=== PATIENT | female | born 1960 | race Caucasian/White ===

== ENCOUNTER 2020-04-27 07:34 | Outpatient (CLI) | payer BC, SELFPAY ==
--- NOTE | ~2020-04-27 | MR_ITS ---
EXAMINATION: MR cervical spine wo con DATE: 04/27/2020 08:40 INDICATION: Cervical radiculopathy. TECHNIQUE: Magnetic resonance imaging (MRI) of the cervical spine was performed without intravenous c ontrast. Sequences included sagittal T2-weighted FSE, sagittal STIR FSE, sagittal T1-weighted FSE, ax ial MERGE, and axial T2-weighted FSE. COMPARISON: None FINDINGS: There is 2 mm anterolisthesis of C3 on C4, 2 mm retrolisthesis of C4 on C5, and 3 mm ingrid listhesis of C7 on T1. Vertebral body heights are normal. There is mildly decreased disc height at C3 -C4, moderately decreased disc height at C4-C5 and C5-C6, and mildly decreased disc height at C7-T1. The spinal cord signal intensity is normal. The following disc levels are specifically discussed: C2-C3: The disc does not extend beyond the endplate margin. There is no uncovertebral joint osteoarth ritis. There is mild right and moderate left facet joint osteoarthritis. There is no neural foraminal stenosis. There is no central canal stenosis. C3-C4: The disc is bulging. There is mild bilateral uncovertebral joint osteoarthritis. There is reid re bilateral facet joint osteoarthritis. There is mild bilateral neural foraminal stenosis. There is mild central canal stenosis. C4-C5: The disc is bulging. There is severe bilateral uncovertebral joint osteoarthritis. There is mi ld bilateral facet joint osteoarthritis. There is moderate bilateral neural foraminal stenosis. There is mild central canal stenosis. C5-C6: The disc is bulging. There is severe bilateral uncovertebral joint osteoarthritis. There is mi ld bilateral facet joint osteoarthritis. There is mild right and moderate left neural foraminal steno sis. There is mild central canal stenosis. C6-C7: The disc does not extend beyond the endplate margin. There is no uncovertebral joint osteoarth ritis. There is mild right and moderate left facet joint osteoarthritis. There is mild left neural fo raminal stenosis. There is no central canal stenosis. C7-T1: The disc does not extend beyond the endplate margin. There is no uncovertebral joint osteoarth ritis. There is severe bilateral facet joint osteoarthritis. There is mild bilateral neural foraminal stenosis. There is no central canal stenosis. IMPRESSION: 1. Moderate cervical spondylosis. Reviewed, dictated and finalized at location A.
== END 2020-04-27 07:35 | disposition home or self-care (01) ==
PROVIDERS: PCP Physician Assistant; Visit Provider Physician Assistant
DX: M47.22 Other spondylosis with radiculopathy, cervical region (principal)
CPT/HCPCS: 72141

== ENCOUNTER 2020-09-30 16:29 | Outpatient (CLI) | payer BC, SELFPAY ==
--- NOTE | ~2020-09-30 | XR_ITS ---
XR ankle LT min 3V DATE: 09/30/2020 16:50 INDICATION: Left ankle lateral pain. No injury. TECHNIQUE: 4 views COMPARISON: None FINDINGS: No fracture or dislocation of the ankle or disruption of the ankle mortise. IMPRESSION: No significant bony abnormality Reviewed, dictated and finalized at location B. GER SCHEDULING
--- NOTE | ~2020-09-30 | US_ITS ---
EXAMINATION: US venous doppler [facility] EXAM DATE: 09/30/2020 17:06 INDICATION: Left foot edema. TECHNIQUE: Multiple grayscale, color flow and Doppler images of the left lower extremity deep venous system were obtained and reviewed. Comparison is made to prior examination from 06/29/2016. FINDINGS: The left common femoral, femoral and profunda veins demonstrate normal color flow, respirat ory variation, augmentation and compressibility. Compressibility, color flow confirmed within the le ft popliteal, posterior tibial, peroneal, and greater saphenous veins. IMPRESSION: 1. No left lower extremity deep venous thrombosis. Reviewed, dictated and finalized at location A. 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
== END 2020-09-30 16:30 | disposition home or self-care (01) ==
PROVIDERS: PCP Physician Assistant; Visit Provider Physician Assistant
DX: M25.572 Pain in left ankle and joints of left foot (principal); R60.0 Localized edema
CPT/HCPCS: 73610; 93971

== ENCOUNTER → 2020-10-21 14:23 | Outpatient (CLI) | payer BC, SELFPAY ==
--- NOTE | ~2020-10-21 | MR_ITS ---
EXAMINATION: MR ankle LT wo con DATE: 10/21/2020 15:26 INDICATION: 2 months of left ankle pain and lateral sided burning sensation. TECHNIQUE: Magnetic resonance imaging (MRI) of the left ankle was performed without intravenous contr ast. Sequences included sagittal, coronal, and axial proton-density weighted fast spin echo without a nd with fat saturation. COMPARISON: Left ankle radiographs dated 09/30/2020 FINDINGS: Medial ankle ligaments: Deep and superficial deltoid ligaments as well as the spring ligament are normal. Lateral ankle ligaments: The anterior and posterior inferior tibiofibular ligaments are normal. The anterior talofibular, calc aneofibular and posterior talofibular ligaments are normal. Tendons: Achilles tendon is normal. Moderate amount of fluid/fluid signal surrounding the peroneus longus and brevis tendons beginning approximately 4 similar proximal to the tip of the lateral malleolus and ext ending distally to the level of the cuboid consistent with moderate bicipital tenosynovitis. Mild ten dinopathy of the peroneus brevis tendon with longitudinal split tear evident immediately distal to th e tip of the lateral malleolus. More prominent tendinopathy with fusiform thickening and longitudinal split tearing of the peroneus longus tendon centered between the level of the medial tubercle and th e cuboid tunnel. The tibialis anterior and extensor hallucis longus and extensor digitorum longus ten dons are normal. Small fluid consistent with mild tenosynovitis along the normal tibialis posterior a nd flexor digitorum longus tendons. The lateral sulcus longus tendon is also normal. Plantar fascia: Plantar aponeurosis is normal. Bones/other: Bone alignment is normal. No fracture, osteonecrosis or pathologic marrow replacing process. Mild ost eoarthritis at the second-fifth tarsal metatarsal joints with subarticular edema at both sides of the second tarsal metatarsal joint. Mild tibiotalar osteoarthritis with additional small focus of subart icular edema along the medial side of the lateral malleolus. There is additional minimal likely react anna edema at the peroneal tubercle of the calcaneus. Sinus Tarsi and tarsal tunnel are unremarkable. There is focus of susceptibility artifact centered near the skin surface plantar/lateral to the base of the fifth metatarsal. On review the prior radiograph there is a minute metallic thin wire-like met allic density measuring 1 mm in length which likely accounts for the artifact and which is likely of no clinical significance. Fluid: Physiologic amount of fluid in the joint spaces. No abnormal fluid collections aside from the previou s noted tenosynovitis along the lateral and to lesser degree medial flexor tendons. Minimal subcutane ous edema at the ankle and along the dorsal lateral aspect of the foot. IMPRESSION: 1. Moderate peroneal tenosynovitis with moderate tendinopathy and longitudinal split tearing of the p eroneus longus tendon and mild tendinopathy and longitudinal split tear plane of the peroneus brevis tendon both centered at the level of the anterior calcaneus immediately underlying the marker indicat ing the region of pain. 2. Mild tenosynovitis along the normal tibialis posterior and flexor digitorum longus tendons. 3. Mild polyarticular osteoarthritis. Reviewed, dictated and finalized at location A. 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 Moderate peroneal tenosynovitis with moderate tendinopathy and longitudinal split tearing of the peroneus longus tendon and mild tendinopathy and longitudi nal split tear plane of the peroneus brevis tendon both centered at the level o f the anterior calcaneus immediately underlying the marker indicating the regio n of pain. 2. Mild tenosynovitis along the no
== END ==
PROVIDERS: PCP Physician Assistant; Visit Provider Physician Assistant
DX: M19.072 Primary osteoarthritis, left ankle and foot (principal); M65.872 Other synovitis and tenosynovitis, left ankle and foot
CPT/HCPCS: 73721

== ENCOUNTER 2020-11-09 14:36 | Outpatient (NON) | payer BC, SELFPAY ==
[2020-11-10 21:48] LABS: SARS-CoV-2 RNA PCR Negative
== END 2020-11-09 14:37 ==
LOC: ANHCOVIDDT 14:37
PROVIDERS: PCP Physician Assistant; Visit Provider Physician Assistant
DX: R50.9 Fever, unspecified (principal); Z20.828 Contact with and (suspected) exposure to other viral communicable diseases
CPT/HCPCS: 87635; C9803; U0003

== ENCOUNTER → 2020-12-19 17:15 | Outpatient (CLI) | payer BC, SELFPAY ==
--- NOTE | ~2020-12-19 | MM_ITS ---
EXAMINATION: MM screening natty BI w saumya HISTORY: Screening mammogram TECHNIQUE: Craniocaudal and mediolateral oblique 3-D tomosynthesis images were obtained and synthetic 2-D images were generated. CAD analysis was submitted and interpreted. COMPARISON: 06/15/2019, 01/31/2018, 03/06/2016 bilateral digital screening mammogram examinations BREAST PARENCHYMAL COMPOSITION: There are scattered areas of fibroglandular density. FINDINGS: There is no evidence of suspicious mass, calcification, or architectural distortion to sugg est malignancy in either breast. There has been no suspicious interval change. IMPRESSION: 1. No mammographic evidence of malignancy. 2. Recommend routine screening mammography in one year. BI-RADS Category 1: Negative Reviewed, dictated and finalized at location A. 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
== END ==
PROVIDERS: PCP Physician Assistant; Visit Provider Physician Assistant
DX: Z12.31 Encounter for screening mammogram for malignant neoplasm of breast (principal)
CPT/HCPCS: 77063; 77067

== ENCOUNTER 2022-02-15 01:44 | Day surgery (SDC) | payer BC, SELFPAY ==
[2022-02-05 13:17] VITALS: BMI 32.3
--- NOTE | 2022-02-14 14:57 | WPDGICN ---
Assessment and Plan Assessment and plan (1) Colon cancer screening: Code(s): Z12.11 - Encounter for screening for malignant neoplasm of colon Status: Acute Assessment and Plan: Colonoscopy with possible biopsy or polypectomy or cautery or injection of substances. GI Consult Note Consult date/time: 02/14/22 14:57 HPI: Janki Love is a 61 year old female referred for colon cancer screening. Her last exam was 10 years ago. She is not having any particular problems now such as diarrhea, abdominal pain, or blood in stools. She has no family history of colon cancer Review of Systems Review of Systems: All systems reviewed & are unremarkable except as noted in HPI and below PMFSH Social History Social History Smoking status: Never smoker Alcohol intake: current Alcohol use details: 2-3 drinks monthly Living arrangements: with family Spiritual care concerns: No Meds Home Medications and Allergies Home Medications Medication Instructions Recorded Confirmed Type aspirin [Adult Low Dose Aspirin] 81 mg PO DAILY 02/05/22 02/05/22 History atenolol 25 mg PO DAILY 02/05/22 02/05/22 History azathioprine 50 mg PO BID 02/05/22 02/05/22 History cholecalciferol (vitamin D3) 50 mcg PO DAILY 02/05/22 02/05/22 History [Vitamin D3] duloxetine 60 mg PO DAILY 02/05/22 02/05/22 History hydroxychloroquine 200 mg PO BID 02/05/22 02/05/22 History vitamin B complex 1 tablet PO DAILY 02/05/22 02/05/22 History zolpidem 12.5 mg PO HS 02/05/22 02/05/22 History Allergies Allergy/AdvReac Type Severity Reaction Status Date / Time No Known Allergies Allergy Verified 02/15/22 06:49 Exam Resp: Auscultation: clear to auscultation bilaterally Cardio: Rate: regular rate Rhythm: regular rhythm GI: GI Palp: Yes Soft to palpation and No Tenderness to palpation present (GI)
[2022-02-15 06:51] VITALS: BP 137/70; PULSE 62; RESP 18; TEMP 36.8; O2SAT 98
[2022-02-15] MEDS: LACTATED RINGERS 1,000 ML 150 ML IV CONT (07:06)
[2022-02-15] MEDS: AMPICILLIN 2 GM/NS 100 ML 2 GM/100 ML BAG IVPB (07:07)
--- NOTE | 2022-02-15 07:45 | WPDANESEPPF ---
Anes - Initial Pre Proc Eval Procedure: Operation Date: 02/15/22 08:00 Proposed Procedures p Screening Colonoscopy - Fabien Colunga MD Date/Time: 02/15/22 07:45 Surgeon: Fabien Colunga MD Pre Op Diagnosis: neoplasm screening Patient Data Age: 61 Gender: F Height: 1.68 m Weight: 93.5 kg Last Vital Signs Temp 98.2 F 02/15/22 06:51 Pulse 62 02/15/22 06:51 Resp 18 02/15/22 06:51 BP 137/70 02/15/22 06:51 Pulse Ox 98 02/15/22 06:51 Allergies Allergy/AdvReac Type Severity Reaction Status Date / Time No Known Allergies Allergy Verified 02/15/22 06:49 Home Medications Medication Instructions Recorded Confirmed Type aspirin [Adult Low Dose Aspirin] 81 mg PO DAILY 02/05/22 02/05/22 History atenolol 25 mg PO DAILY 02/05/22 02/05/22 History azathioprine 50 mg PO BID 02/05/22 02/05/22 History cholecalciferol (vitamin D3) 50 mcg PO DAILY 02/05/22 02/05/22 History [Vitamin D3] duloxetine 60 mg PO DAILY 02/05/22 02/05/22 History hydroxychloroquine 200 mg PO BID 02/05/22 02/05/22 History vitamin B complex 1 tablet PO DAILY 02/05/22 02/05/22 History zolpidem 12.5 mg PO HS 02/05/22 02/05/22 History Patient hx anesthesia problems: none Family hx anesthesia problems: none Results Review: All pre-operative results and documents have been reviewed as part of the pre-operative evaluation. [facility] Past Medical History Medical History (Updated 02/15/22 @ 07:46 by Mario Arboleda MD) Asthma Hypertension Irregular heart beat Systemic lupus erythematosus Social History Social History Smoking status: Never smoker Alcohol intake: current Alcohol use details: 2-3 drinks monthly Living arrangements: with family Spiritual care concerns: No Anes - Eval Final PreProcedure Day of Procedure 02/15/22 07:45 Patient weight: obese Heart: regular rate and rhythm Lungs: clear to auscultation Airway: Mallampati scale class II Neurological: alert and oriented Last oral intake: >/= 8 hours ASA classification: III Emergent: no Anesthetic plan: proceed Anesthesia type and monitoring: general GIVS and standard monitoring Results Review: All pre-operative results and documents have been reviewed as part of the pre-operative evaluation. Informed Consent: The patient's anesthetic plan and its attendant risks and benefits were discussed with the patient/family/POA. Questions were solicited and answers provided to the satisfaction of the patient/family/POA.
[2022-02-15 08:15] VITALS: BP 107/68; PULSE 97; RESP 20; O2SAT 97
[2022-02-15 08:25] VITALS: BP 123/80; PULSE 100; RESP 19; O2SAT 99
[2022-02-15 08:35] VITALS: BP 142/77; PULSE 100; RESP 20; O2SAT 99
== END 2022-02-15 08:41 | disposition home or self-care (01) ==
PROVIDERS: PCP Physician Assistant; Visit Provider Internal Medicine Gastroenterology
PROC: 0DJD8ZZ Inspection of Lower Intestinal Tract, Via Natural or Artificial Opening Endoscopic (ICD-10-PCS; CPT 45378; principal; 2022-02-15 08:00)
DX: Z12.11 Encounter for screening for malignant neoplasm of colon (principal); I10 Essential (primary) hypertension; M32.9 Systemic lupus erythematosus, unspecified; Z79.82 Long term (current) use of aspirin; E66.9 Obesity, unspecified; Z68.33 Body mass index [BMI] 33.0-33.9, adult
CPT/HCPCS: 45378; J0290; J2704; J7120

== ENCOUNTER → 2022-03-05 10:46 | Outpatient (CLI) | payer BC, SELFPAY ==
--- NOTE | ~2022-03-05 | MM_ITS ---
EXAMINATION: MM screening natty BI w saumya HISTORY: Screening TECHNIQUE: Craniocaudal and mediolateral oblique 3-D tomosynthesis images were obtained and synthetic 2-D images were generated. CAD analysis was submitted and interpreted. COMPARISON: Comparison to multiple prior studies sequentially, with oldest reviewed study dated 01/31. BREAST PARENCHYMAL COMPOSITION: There are scattered areas of fibroglandular density. FINDINGS: There is no evidence of suspicious mass, calcification, or architectural distortion to sugg est malignancy in either breast. There has been no suspicious interval change. IMPRESSION: 1. No mammographic evidence of malignancy. 2. Recommend routine screening mammography in one year. BI-RADS Category 1: Negative Reviewed, dictated and finalized at location A.
== END ==
PROVIDERS: PCP Physician Assistant; Visit Provider Physician Assistant
DX: Z12.31 Encounter for screening mammogram for malignant neoplasm of breast (principal)
CPT/HCPCS: 77063; 77067

== ENCOUNTER 2022-07-21 08:48 | Emergency (ER) | payer BC, SELFPAY ==
--- NOTE | ~2022-07-21 | XR_ITS ---
XR ankle LT min 3V DATE: 07/21/2022 09:26 INDICATION: Fall down stairs. Lateral ankle pain TECHNIQUE: 4 views COMPARISON: None FINDINGS: No fracture or dislocation of the ankle or disruption of the ankle mortise. No periosteal r eaction or bone destruction. IMPRESSION: Negative Reviewed, dictated and finalized at location A. IMPRESSION: Negative
--- NOTE | ~2022-07-21 | XR_ITS ---
XR tibia fibula LT 2V DATE: 07/21/2022 09:26 INDICATION: Fall down steps. Lateral lower leg pain TECHNIQUE: AP and lateral views COMPARISON: 07/21/2022 left ankle FINDINGS: Status post left total knee arthroplasty with patellar resurfacing. Normal alignment at the knee and ankle joints. No tibial or fibular fracture, periosteal reaction or bone destruction. IMPRESSION: No fracture or dislocation of left lower leg Status post left total knee arthroplasty Reviewed, dictated and finalized at location A.
[2022-07-21 08:56] VITALS: BP 101/84; PULSE 69; RESP 16; TEMP 36.9; O2SAT 96
--- NOTE | 2022-07-21 09:19 | ED.LOWEXIN ---
HPI - Extremity Injury (Lower) General Chief Complaint: Extremity Injury, Lower Stated Complaint: possible broken left ankle Time Seen by Provider: 07/21/22 09:11 Source: patient Mode of arrival: wheelchair Limitations: no limitations History of Present Illness HPI Narrative: This is a 61-year-old female that presents to the emergency department for left ankle pain after an injury last night. Reports she slipped on a rug and twisted her ankle. Reports pain and swelling to the medial aspect of the ankle. She is unable to bear weight. Reports decreased range of motion due to pain. No others injuries or trauma. Denies numbness. Related Data Home Medications Medication Instructions Recorded Confirmed atenolol 25 mg tablet 25 mg PO DAILY 02/05/22 07/21/22 azathioprine 50 mg tablet 50 mg PO BID 02/05/22 07/21/22 cholecalciferol (vitamin D3) 50 50 mcg PO DAILY 02/05/22 07/21/22 mcg (2,000 unit) tablet (Vitamin D3) duloxetine 60 mg capsule,delayed 60 mg PO DAILY 02/05/22 07/21/22 release hydroxychloroquine 200 mg tablet 200 mg PO BID 02/05/22 07/21/22 vitamin B complex 1 tablet PO DAILY 02/05/22 07/21/22 zolpidem 12.5 mg tablet,extended 12.5 mg PO HS 02/05/22 07/21/22 release,multiphase simvastatin 20 mg tablet 20 mg PO DAILY 07/21/22 07/21/22 Allergies Allergy/AdvReac Type Severity Reaction Status Date / Time No Known Allergies Allergy Verified 07/21/22 08:56 Review of Systems Review of Systems: CONSTITUTIONAL: Denies fever MUSCULOSKELETAL: Reports joint pain, and myalgia. NEUROLOGIC: Denies numbness All systems reviewed & are unremarkable except as noted in HPI and below PMFSH Past Medical History Medical History (Updated 07/21/22 @ 10:05 by Noa Guzman PA-C) Asthma Hypertension Irregular heart beat Systemic lupus erythematosus Social History Social History Smoking status: Never smoker Alcohol intake: current Alcohol use details: 2-3 drinks monthly Spiritual care concerns: No Exam Narrative: GENERAL: Well-appearing, well-nourished, and in no acute distress. HEAD: Normocephalic, atraumatic. EYES: EOMI. EXTREMITIES: Mildly decreased active ROM in the left ankle. No edema or obvious deformity. Normal DP pulse. Normal sensation SKIN: Warm, dry, no rash. NEURO: No focal deficits. Alert and oriented x3. PSYCH: Normal mood and affect Course Vital Signs Vital signs: Vital Signs Temperature 98.4 F 07/21/22 08:56 Pulse Rate 69 07/21/22 08:56 Respiratory Rate 16 07/21/22 08:56 Blood Pressure 101/84 07/21/22 08:56 Pulse Oximetry 96 07/21/22 08:56 Temperature 98.4 F 07/21/22 08:56 Pulse Rate 69 07/21/22 08:56 Respiratory Rate 16 07/21/22 08:56 Blood Pressure 101/84 07/21/22 08:56 Pulse Oximetry 96 07/21/22 08:56 MDM - Extremity Injury (Lower) MDM Narrative Medical decision making narrative: Patient presents emergency department for left ankle pain after an injury last night. She is neurovascularly intact. Left ankle and tib-fib x-rays without acute osseous abnormalities. Patient placed in an Inocencio wrap and given crutches. Instructed on care of ankle sprain. She is to follow-up with primary care doctor. She was given warnings to return to the ER Imaging Data Radiologist's impression: ITS Impressions Ankle X-Ray 07/21/22 09:37 IMPRESSION: Negative Tibia/Fibula X-Ray 07/21/22 09:38 IMPRESSION: No fracture or dislocation of left lower leg Status post left total knee arthroplasty Critical Care Time Critical Care Time Critical Care Time: No Discharge Plan Discharge Clinical Impression: Ankle sprain and strain Patient Disposition: Home, Self-Care Condition: Stable Instructions: Ankle Sprain (ED) Additional Instructions: Return to the emergency department if you experience fever, redness and swelling of your leg, numbness, or any other
[2022-07-21 10:23] VITALS: BP 110/67; PULSE 88; RESP 16; O2SAT 97
== END 2022-07-21 10:24 | disposition home or self-care (01) ==
PROVIDERS: Emergency Provider Emergency Medicine; PCP Physician Assistant
DX: S93.402A Sprain of unspecified ligament of left ankle, initial encounter (principal); S96.912A Strain of unspecified muscle and tendon at ankle and foot level, left foot, initial encounter; J45.909 Unspecified asthma, uncomplicated; I10 Essential (primary) hypertension; M32.9 Systemic lupus erythematosus, unspecified; Z96.652 Presence of left artificial knee joint; W18.40XA Slipping, tripping and stumbling without falling, unspecified, initial encounter; X50.9XXA Other and unspecified overexertion or strenuous movements or postures, initial encounter
CPT/HCPCS: 73590; 73610; 99284

== ENCOUNTER → 2023-05-28 13:03 | Outpatient (CLI) | payer BC, SELFPAY ==
--- NOTE | ~2023-05-28 | MM_ITS ---
EXAMINATION: MM screening natty BI w saumya HISTORY: Screening TECHNIQUE: Craniocaudal and mediolateral oblique 3-D tomosynthesis images were obtained and synthetic 2-D images were generated. CAD analysis was submitted and interpreted. COMPARISON: Comparison to multiple prior studies sequentially, with oldest reviewed study dated 03/06. BREAST PARENCHYMAL COMPOSITION: Breast composed of scattered areas of fibroglandular density FINDINGS: There is no evidence of suspicious mass, calcification, or architectural distortion to sugg est malignancy in either breast. There has been no suspicious interval change. IMPRESSION: 1. No mammographic evidence of malignancy. 2. Recommend routine screening mammography in one year. BI-RADS Category 1: Negative Reviewed, dictated and finalized at location A.
--- NOTE | ~2023-05-28 | DEXA_ITS ---
Bone Density Report Name: KELLI HENRY Age: 62 Sex: Female Ethnicity: White Date of : 1960 Indication: postmenopausal; screening for osteoporosis; height loss; Referring Provider: SAEED, APARNA Christopher Study: Bone densitometry was performed. Exam Date: May 28, 2023 Accession number: [id number] Bone Density: Region BMD T-score Z-score Classification AP Spine (L1-L4) 1.030 -0.2 1.3 Normal Femoral Neck (Left) 0.702 -1.3 0.0 Osteopenia Total Hip (Left) 0.848 -0.8 0.2 Normal World Health Organization criteria for BMD impression classify patients as: Normal (T-score at or above -1.0), Osteopenia (T-score between -1.0 and -2.5), or Osteoporosis (T-score at or below -2.5). 10-year Fracture Risk(1): Major Osteoporotic Fracture 7.1% Hip Fracture 0.5% Reported Risk Factors: [place] (), Neck BMD=0.702, BMI=35.3 (1) FRAX(R) Version 3.08. Fracture probability calculated for an untreated patient. Fracture probability may be lower if the patient has received treatment. Clinical Information Provided by Patient: Has used the following medications: Vitamin D, MTV Patient maximum height was 67 Menopause Age: 57 No regular weight bearing exercise Drinks caffeinated beverages Onset of menses at age 16 Number of children 0 Impression: The patient has low bone mass, based on the Left Femoral Neck T-score. The patient has an estimated ten-year risk of hip fracture of 0.5% and an estimated ten-year risk of major fracture of 7.1%, based on the WHO FRAX algorithm. Discussion: BONE DENSITY IS LOW AT ONE OR MORE SKELETAL SITES. This patient's lowest T-score is low at one or more skeletal sites. It meets the World Health Organization's (WHO) criteria for ?low bone mass? (T-score between -1.0 and -2.5). The patient's 10-year risk of fracture as calculated by FRAX is less than the threshold where pharmacological therapy is recommended by the National Osteoporosis Foundation (NOF). However, all treatment decisions require clinical judgment and consideration of individual patient factors, including patient preferences, comorbidities, previous drug use, risk factors not captured in the FRAX model (e.g., frailty, falls, vitamin D deficiency, increased bone turnover, interval significant decline in bone density) and possible under or overestimation of fracture risk by FRAX. The patient should follow a healthful lifestyle (good nutrition with adequate calcium and vitamin D, and appropriate weight-bearing exercise). Follow-Up: Consider repeating this study in 2 to 3 years to reassess this patient's status, or sooner if there is some new clinical indication. Reported by: JUSTINE on 05/28/2023 1:29:00 PM. Reviewed, dictated and finalized at location A. PONCHO
== END ==
PROVIDERS: PCP Physician Assistant; Visit Provider Nurse Practitioner
DX: Z12.31 Encounter for screening mammogram for malignant neoplasm of breast (principal); Z13.820 Encounter for screening for osteoporosis; M85.852 Other specified disorders of bone density and structure, left thigh
CPT/HCPCS: 77063; 77067; 77080

== ENCOUNTER → 2023-08-02 09:54 | Outpatient (CLI) | payer BC, SELFPAY ==
--- NOTE | ~2023-08-02 | CT_ITS ---
CT of the Abdomen and Pelvis: Indication: Ventral hernia Technique: 2.5 mm axial scans were obtained through the abdomen and pelvis following intravenous adm inistration of 100 cc of Omnipaque 350. Dose reduction technique was used on this scan by utilizing a utomated exposure control and iterative reconstruction technique. The dose-length product (DLP) was 9 83.15 mGy-cm. Findings: Scans through the lung bases demonstrate 3 mm left lower lobe pulmonary nodule (axial imag e 18). There is a 1.5 cm irregular nodular opacity at the right lung base (axial image 15), indetermi mina.. The liver, spleen, pancreas, gallbladder, adrenals and kidneys are within normal limits. No evidence of aortic aneurysm. No lymphadenopathy. No bowel obstruction or bowel wall thickening. There is no evidence to suggest acute appendicitis. Ti ny fat-containing umbilical hernia noted. Images through the pelvis are degraded by streak artifact from right hip arthroplasty. Urinary bladde r grossly unremarkable. No pelvic mass evident. No ascites. Impression: Tiny fat-containing umbilical hernia. 1.5 cm irregular right basilar pulmonary nodule, indeterminate. Given size, consider short-term follo w-up CT in 1-3 months, PET/CT, or attempted tissue sampling. Additional 3 mm left basilar pulmonary nodule. Reviewed, dictated and finalized at location . Impression: Tiny fat-containing umbilical hernia. 1.5 cm irregular right basilar pulmonary nodule, indeterminate. 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 Additional 3 mm left basilar pulmonary nodule.
[2023-08-02 10:11] LABS: Estimated Glomerular Filt Rate 57
== END ==
PROVIDERS: PCP Internal Medicine Rheumatology; Visit Provider Physician Assistant
DX: K43.9 Ventral hernia without obstruction or gangrene (principal); K42.9 Umbilical hernia without obstruction or gangrene; R91.8 Other nonspecific abnormal finding of lung field
CPT/HCPCS: 74177; Q9967

== ENCOUNTER 2023-08-13 11:50 | Outpatient (CLI) | payer BC, SELFPAY ==
--- NOTE | ~2023-08-13 | PE_ITS ---
EXAMINATION: PET skull to mid thigh DATE: 08/13/2023 13:53 INDICATION: Lung nodule TECHNIQUE: Blood glucose level was 76 mg/dL. 10.303 mCi of 18-fluorodeoxyglucose (18-FDG) was adminis tered i.v. Low dose computed tomography (CT) images were acquired from the base of the brain to the p roximal thighs for attenuation correction and anatomic localization. Positron emission tomography (PE T) images were acquired in the same distribution beginning 58 minutes after injection. Images includi ng fused PET/CT images were reconstructed in axial, coronal, and sagittal planes. Automated exposure control technique was employed. The dose-length product was 1123.60mGy-cm. COMPARISON: CT dated 09/01/2023 FINDINGS: Head/neck: There is symmetric increased activity in the oral cavity, palatine tonsils and ocular muscles without CT correlate, likely physiologic. No pathologically enlarged cervical lymphadenopathy or suspicious foci of increased FDG uptake in the visualized head or neck. Chest: No increased FDG uptake is fissure with elongated 1.8 x 0.8 cm nodule along a band of discoid atelect asis/scarring in the right lower lobe. No other suspicious pulmonary nodules, pneumonia, pulmonary ed juana or other pulmonary infiltrates. No pleural effusion. Heart size is normal. No pericardial effusio n. Thoracic aorta is normal in caliber. No pathologically enlarged or FDG avid thoracic lymphadenopat hy. Small sliding-type hiatal hernia with centimeters focus of mild increased FDG uptake with maximal SUV of 6.2 located at the gastroesophageal junction. Abdomen/pelvis/proximal thighs: Physiologic renal accumulation and excretion of FDG activity in the kidneys, bladder and along portio ns of ureters. Normal degree and heterogenous pattern of increased uptake throughout the liver withou t radiologic correlate or dominant FDG avid lesion. The gallbladder, pancreas, spleen and bilateral a drenal glands are normal. Mild uptake scattered throughout the bowels without radiologic correlate, a lso likely physiologic. Normal appendix. Uterus and bilateral adnexa are unremarkable. No other abnor mal foci of increased FDG uptake or pathologically enlarged lymphadenopathy in the abdomen, pelvis or proximal thighs. Musculoskeletal: Moderate lumbar spondylosis. Right total hip arthroplasty. No suspicious lytic, blastic or FDG avid b one lesions. IMPRESSION: 1. No increased FDG uptake associated with a 1.8 x 0.8 cm right lower lobe nodule along a band of dis coid atelectasis/scarring. While reassuring, absence of FDG uptake does not absolutely exclude a slow -growing malignancy and would recommend continued follow-up with chest CT in 3-6 months. 2. Small sliding-type hiatal hernia with small focus of mild increased FDG uptake at the gastroesopha geal junction. This could be related to reflux esophagitis but would consider further evaluation with endoscopy to exclude malignancy or premalignant Mejia's metaplasia. Reviewed, dictated and finalized at location A. IMPRESSION: 1. No increased FDG uptake associated with a 1.8 x 0.8 cm right lower lobe nodu le along a band of discoid atelectasis/scarring. While reassuring, absence of F DG uptake does not absolutely exclude a slow-growing malignancy and would recom mend continued follow-up with chest CT in 3-6 months. 2. Small sliding-type hiatal hernia with small focus of mild increased FDG upta ke at the gastroesophageal junction. This could be related to reflux esophagiti s but would consider further evaluation with endoscopy to exclude malignancy or premalignant Mejia's metaplasia.
[2023-08-13 12:26] LABS: Glucose Point of Care 76 mg/dl (65-105)
== END 2023-08-13 11:51 | disposition home or self-care (01) ==
PROVIDERS: PCP Physician Assistant; Visit Provider Physician Assistant
DX: R91.1 Solitary pulmonary nodule (principal)
CPT/HCPCS: 78815; A9552

== ENCOUNTER 2023-08-14 14:57 | Emergency (ER) | payer BC, SELFPAY ==
--- NOTE | ~2023-08-14 | US_ITS ---
EXAMINATION: US venous doppler LE RT DATE: 08/14/2023 16:45 INDICATION: Right lower limb swelling TECHNIQUE: Grayscale ultrasound images without and with compression and Doppler ultrasound images of the right lower extremity veins were obtained. COMPARISON: None. FINDINGS: The visualized portions of right common femoral vein, profunda (deep) femoral vein, femoral vein, gas trocnemius vein and greater saphenous vein outflow are patent. Prominent noncompressible deep venous thrombosis in the right popliteal vein and paired posterior tibial and peroneal veins. This appears o cclusive with no discernible vascular flow on color Doppler. IMPRESSION: 1. Deep venous thrombosis in the right popliteal, posterior tibial and peroneal veins. Reviewed, dictated and finalized at location A. IMPRESSION: 1. Deep venous thrombosis in the right popliteal, posterior tibial and peronea l veins.
--- NOTE | ~2023-08-14 | CT_ITS ---
EXAMINATION: CTA chest PE protocol DATE: 08/14/2023 19:20 INDICATION: Shortness of breath TECHNIQUE: Computed tomography angiography (CTA) of the chest was performed with 100 mL Omnipaque-350 intravenous contrast timed to evaluate the pulmonary arteries. Coronal maximum intensity projection 3D-reconstructions were created by the technologist. The dose-length product (DLP) was 462.28 mGy-cm. Automated exposure control and iterative reconstruction technique were employed. COMPARISON: PET 08/13/2023. FINDINGS: Lung parenchyma and airways: Stable irregular, scarlike opacity in the peripheral right lower lobe. Pleura: Unremarkable. Thoracic inlet, axillae and chest wall: Unremarkable. Thoracic aorta: Normal. Mediastinum: Normal. Heart and pericardium: Normal. RV/LV ratio less than 1. Coronary artery calcifications: Absent. Upper abdomen: No significant finding. Bones: No acute osseous finding. Pulmonary arteries: Study quality: Adequate. Acute nonocclusive emboli in the distal right and left m ain pulmonary arteries, extending into the segmental branches of all lobes. IMPRESSION: Acute nonocclusive emboli in the distal right and left main pulmonary arteries, extending into the se gmental and branches of all lobes. Moderate clot burden. No CT evidence of right heart strain. Prior recommendations for follow-up chest CT in 3-6 months and esophageal endoscopy are unchanged. Reviewed, dictated and finalized at location K. IMPRESSION: Acute nonocclusive emboli in the distal right and left main pulmonary arteries, extending into the segmental and branches of all lobes. Moderate clot burden. No CT evidence of right heart strain. Prior recommendations for follow-up chest CT in 3-6 months and esophageal endos copy are unchanged.
[2023-08-14 15:51] VITALS: BP 134/82; PULSE 75; RESP 18; TEMP 36.8; O2SAT 96
--- NOTE | 2023-08-14 16:07 | PC.NURSE ---
US at bedside
--- NOTE | 2023-08-14 17:18 | ED.LOWEXIN ---
HPI - Extremity Injury (Lower) General Chief Complaint: Extremity Injury, Lower <Chris Owens MD - Last Filed: 08/14/23 19:02> Stated Complaint: right leg - concerned for blood clot <Chris Owens MD - Last Filed: 08/14/23 19:02> Time Seen by Provider: 08/14/23 16:00 <Chris Owens MD - Last Filed: 08/14/23 19:02> History of Present Illness HPI Narrative: This is a 62-year-old female, with past history of lupus and DVTs, who presents to the emergency department complaining of right lower extremity swelling and pain for the past several days. She describes the pain as throbbing, rated 4/10 and nonradiating. She states this is similar to that felt in an arm when she had blood clots. She also complains of some dyspnea on exertion. She states she was recently evaluated by PET CT for metastases after a CT of the abdomen was concerning for malignancy. <Chris Owens MD - Last Filed: 08/14/23 19:02> Related Data Home Medications: Home Medications Medication Instructions Recorded Confirmed atenolol 25 mg tablet 25 mg PO DAILY 02/05/22 07/21/22 azathioprine 50 mg tablet 50 mg PO BID 02/05/22 07/21/22 cholecalciferol (vitamin D3) 50 50 mcg PO DAILY 02/05/22 07/21/22 mcg (2,000 unit) tablet (Vitamin D3) duloxetine 60 mg capsule,delayed 60 mg PO DAILY 02/05/22 07/21/22 release hydroxychloroquine 200 mg tablet 200 mg PO BID 02/05/22 07/21/22 vitamin B complex 1 tablet PO DAILY 02/05/22 07/21/22 zolpidem 12.5 mg tablet,extended 12.5 mg PO HS 02/05/22 07/21/22 release,multiphase simvastatin 20 mg tablet 20 mg PO DAILY 07/21/22 07/21/22 <Chris Owens MD - Last Filed: 08/14/23 19:02> Allergies/Adverse Reactions: Allergies Allergy/AdvReac Type Severity Reaction Status Date / Time No Known Allergies Allergy Verified 07/21/22 08:56 <Chris Owens MD - Last Filed: 08/14/23 19:02> Review of Systems Review of Systems: CONSTITUTIONAL: Denies fever, chills, or sweats. CARDIOVASCULAR: Denies chest pain, palpitations, or edema. RESPIRATORY: Mild dyspnea denies cough GASTROINTESTINAL: Denies abdominal pain, nausea, vomiting, or diarrhea. GENITOURINARY: Denies dysuria or hematuria. SKIN: Denies rash or itching. MUSCULOSKELETAL: Right leg swelling denies back pain, joint pain, or myalgia. NEUROLOGIC: Denies headache, numbness, dizziness, or weakness. PSYCHIATRIC: Denies anxiety or depression. <Chris Owens MD - Last Filed: 08/14/23 19:02> PMFSH Past Medical History Medical History: Medical History Asthma Hypertension Irregular heart beat Systemic lupus erythematosus <Chris Owens MD - Last Filed: 08/14/23 19:02> Social History Social History: Social History Smoking status: Never smoker Alcohol intake: current Alcohol use details: 2-3 drinks monthly Living arrangements: with family Spiritual care concerns: No <Chris Owens MD - Last Filed: 08/14/23 19:02> Exam Narrative: GENERAL: Well-developed, well-nourished, and in no acute distress. HEAD: Normocephalic, atraumatic. EYES: PERRLA and EOMI. CHEST: Clear to auscultation. No respiratory distress. No wheezes rales or rhonchi HEART: Regular rate and rhythm. No murmur heard. Normal peripheral pulses. ABDOMEN: Soft, nontender, nondistended, normal active bowel sounds. EXTREMITIES: Mild right leg swelling. Normal range of motion. No edema. SKIN: Warm, dry, no rash. NEURO: Alert and oriented x3. Moving all 4 limbs purposefully. PSYCH: Normal mood and affect. <Chris Owens MD - Last Filed: 08/14/23 19:02> Course Course Emergency Course: 17:05 - Right lower extremity ultrasound demonstrates DVT of the right popliteal, posterior tibial and peroneal veins. Review of a recent PET/CT demonstrates a right lung upper lobe nodu
[2023-08-14 17:51] LABS: Basophils Absolute Auto 0.1 K/mm3 (0.0-0.1); Basophils Percent Auto 0.7 % (0.2-1.2); Eosinophils Absolute Auto 0.1 K/mm3 (0-0.3); Eosinophils Percent Auto 0.6 % (0-4.4); Hematocrit 46.1 % (37.0-47.0); Hemoglobin 15.3 g/dL (12.0-15.0); Immature Granulocyte Absolute 0.06 K/mm3 (0.00-0.031); Immature Granulocyte Percent A 0.6 % (0-0.5); Lymphocytes Absolute Auto 0.88 K/mm3 (0.9-3.2); Lymphocytes Percent Auto 9.2 % (18.3-44.2); Mean Corpuscular HGB Conc 33.2 g/dl (32-36); Mean Corpuscular Hemoglobin 30.7 pg (26-34); Mean Corpuscular Volume 92.4 fl (80-100); Mean Platelet Volume 10.9 fl (7.4-10.4); Monocytes Absolute Auto 0.7 K/mm3 (0.1-0.6); Monocytes Percent Auto 6.8 % (2.6-8.5); Neutrophils Absolute Auto 7.8 K/mm3 (1.3-6.7); Neutrophils Percent Auto 82.1 % (45.5-73.1); Platelet Count Result 189 k/mm3 (150-375); Red Blood Count 4.99 M/mm3 (4.2-5.4); Red Cell Distribution Width 13.2 % (11.5-14.5); White Blood Count 9.5 K/mm3 (4.5-10.0)
[2023-08-14 18:04] LABS: Prothrombin Time 13.6 Seconds (11.1-14.7)
[2023-08-14 18:05] LABS: Partial Thromboplastin Time 30.3 SECONDS (22.3-36.8)
[2023-08-14 18:38] LABS: Anion Gap 7 mmol/L (8-16); Blood Urea Nitrogen 11 mg/dL (7-17); Calcium 9.4 mg/dL (8.4-10.2); Carbon Dioxide 28 mmol/L (22-30); Chloride 101 mmol/L (98-107); Estimated CRCL calculation 68 ml/min; Estimated Glomerular Filt Rate > 60; Glucose 94 mg/dL (65-110); Potassium 4.6 mmol/L (3.4-5.0); Sodium 136 mmol/L (137-145)
--- NOTE | 2023-08-14 19:15 | PC.NURSE ---
Assumed care of pt from AMARIS Patino at this time.
[2023-08-14 19:22] VITALS: BP 140/79; PULSE 71; RESP 19; O2SAT 98
[2023-08-14] MEDS: APIXABAN 5 MG TABLET 10 MG PO (19:22)
[2023-08-14 20:25] VITALS: BP 116/90; PULSE 60; RESP 20; O2SAT 97
== END 2023-08-14 20:26 | disposition home or self-care (01) ==
PROVIDERS: Emergency Provider Preventive Medicine Aerospace Medicine; PCP Physician Assistant
DX: I82.431 Acute embolism and thrombosis of right popliteal vein (principal); I82.451 Acute embolism and thrombosis of right peroneal vein; I82.441 Acute embolism and thrombosis of right tibial vein; I26.99 Other pulmonary embolism without acute cor pulmonale; I10 Essential (primary) hypertension; J45.909 Unspecified asthma, uncomplicated; M32.9 Systemic lupus erythematosus, unspecified
CPT/HCPCS: 36415; 71275; 80048; 85025; 85610; 85730; 93971; 99284; A9270; Q9967

== ENCOUNTER 2023-09-18 03:12 | Day surgery (SDC) | payer BC, SELFPAY ==
[2023-09-13 14:04] VITALS: BMI 30.7
--- NOTE | 2023-09-16 09:25 | SUR.PREOP ---
Patient called regarding upcoming procedure. Reviewed preop instructions, appointment times, and procedure prep.
--- NOTE | 2023-09-16 10:42 | PC.NURSE ---
late entry- 09/13/2023 spoke with patient and with Dr. Colunga concerning Eliquis. He has spoken with Vianney Carpenter and she will bridge pt on Lovenox. Her office has spoken to patient and will provide instructions to her. 09/16/2023 received consult form from Vianney Carpenter's office and last dose of Lovenox will be 09/17/[address] Colunga is aware and okay to proceed/.
--- NOTE | 2023-09-17 17:38 | PM.HPGS ---
History of Present Illness History of Present Illness Consent: Risks, benefits, and alternatives have been discussed and questions answered. Patient agrees to proceed with procedure. Chief complaint: Disease of esophagus unspecified Narrative: Janki Love is a 62 year old female Only found to have pulmonary emboli will also on imaging was found to have: . Small sliding-type hiatal hernia with small focus of mild increased FDG uptake at the gastroesophageal junction. This could be related to reflux esophagitis but would consider further evaluation with endoscopy to exclude malignancy or premalignant Mejia's metaplasia. Review of Systems Review of Systems: All systems reviewed & are unremarkable except as noted in HPI and below PMFSH Past Medical History Medical History Asthma Hypertension Irregular heart beat Systemic lupus erythematosus Social History Social History Smoking status: Never smoker Alcohol intake: current Alcohol use details: 2-3 drinks monthly Substance use: never Substance use type: does not use Living arrangements: with family Spiritual care concerns: No Meds Home Medications and Allergies Home Medications Medication Instructions Recorded Confirmed Type atenolol 25 mg tablet 25 mg PO DAILY 02/05/22 09/13/23 History cholecalciferol (vitamin D3) 50 50 mcg PO DAILY 02/05/22 09/13/23 History mcg (2,000 unit) tablet (Vitamin D3) duloxetine 60 mg capsule,delayed 60 mg PO DAILY 02/05/22 09/13/23 History release hydroxychloroquine 200 mg tablet 200 mg PO BID 02/05/22 09/13/23 History vitamin B complex 1 tablet PO DAILY 02/05/22 09/13/23 History zolpidem 12.5 mg tablet,extended 12.5 mg PO HS 02/05/22 09/13/23 History release,multiphase simvastatin 20 mg tablet 20 mg PO DAILY 07/21/22 09/13/23 History apixaban 5 mg tablet (Eliquis) 5 mg PO BID 09/13/23 09/13/23 History azathioprine 50 mg tablet 50 mg PO QPM 09/13/23 09/13/23 History azathioprine 50 mg tablet 100 mg PO QAM 09/13/23 09/13/23 History enoxaparin 100 mg/mL subcutaneous 100 mg subcut DAILY 09/18/23 09/18/23 History syringe Allergies Allergy/AdvReac Type Severity Reaction Status Date / Time No Known Allergies Allergy Verified 09/18/23 07:33 Exam Const: General: alert Orientation/consciousness: patient oriented x3 Resp: Auscultation: clear to auscultation bilaterally Cardio: Rhythm: regular rhythm GI: GI Palp: Yes Soft to palpation and No Tenderness to palpation present (GI) Neuro: General: patient oriented x3 Assessment and Plan Assessment and plan (1) Abnormal CT scan, gastrointestinal tract: Code(s): R93.3 - Abnormal findings on diagnostic imaging of other parts of digestive tract Status: Acute Assessment and Plan: EGD with possible biopsy or dilatation or cautery.
[2023-09-18 07:36] VITALS: BP 106/70; PULSE 63; RESP 20; TEMP 36.1; O2SAT 97; BMI 34.2
[2023-09-18] MEDS: LACTATED RINGERS 1,000 ML 150 ML IV CONT (07:44)
[2023-09-18 08:53] VITALS: BP 116/74; PULSE 58; RESP 13; O2SAT 97
[2023-09-18 09:03] VITALS: BP 122/77; PULSE 58; RESP 13; O2SAT 100
== END 2023-09-18 09:25 | disposition home or self-care (01) ==
PROVIDERS: PCP Physician Assistant; Visit Provider Internal Medicine Gastroenterology
PROC: 0DJ08ZZ Inspection of Upper Intestinal Tract, Via Natural or Artificial Opening Endoscopic (ICD-10-PCS; CPT 43235; principal; 2023-09-18 08:45)
DX: K22.70 Barrett's esophagus without dysplasia (principal); K44.9 Diaphragmatic hernia without obstruction or gangrene; I26.99 Other pulmonary embolism without acute cor pulmonale; I10 Essential (primary) hypertension; J45.909 Unspecified asthma, uncomplicated; M32.9 Systemic lupus erythematosus, unspecified; Z79.01 Long term (current) use of anticoagulants
CPT/HCPCS: 43239; 87081; 88305; J2704; J7120

== ENCOUNTER → 2023-12-03 08:08 | Outpatient (CLI) | payer BC, SELFPAY ==
--- NOTE | ~2023-12-03 | CT_ITS ---
EXAMINATION: CT diagnostic chest w con DATE: 12/03/2023 08:45 INDICATION: Solitary pulmonary nodule TECHNIQUE: Computed tomography (CT) of the chest was performed with 75 cc Omnipaque 350 intravenous c ontrast. The dose-length product was 437.35 mGy-cm. Automated exposure control and iterative reconstr uction technique were employed. COMPARISON: CT dated 08/14/2023 FINDINGS: No significant pleural or pericardial effusion. Heart size normal. No thoracic lymphadenopa thy. Small hiatal hernia. Fatty infiltration of the liver. The spleen, pancreas, adrenal glands are u nremarkable. Gallbladder is present. No endobronchial lesions. No pneumothorax. Stable irregular line ar infiltrates of the right lower lobe, likely scarring. There is a stable 3 mm fissural nodule on th e right, image 58. There is a 2 mm right upper lobe nodule, unchanged, likely benign. There is a stab le there is a 3 mm fissural nodule on the left unchanged. No focal airspace consolidation. No pneumot horax. Mild thoracic spondylosis. 2 mm right upper lobe nodule, image 36. IMPRESSION: 1. Stable small pulmonary nodules and linear infiltrate of the right lower lobe, likely benign. Recom mend follow-up low dose CT chest in 12 months. Reviewed, dictated and finalized at location L. T SPECIALIST IMPRESSION: 1. Stable small pulmonary nodules and linear infiltrate of the right lower lobe , likely benign. Recommend follow-up low dose CT chest in 12 months.
[2023-12-03 08:35] LABS: Estimated Glomerular Filt Rate 50
== END ==
PROVIDERS: PCP Physician Assistant; Visit Provider Physician Assistant
DX: R91.8 Other nonspecific abnormal finding of lung field (principal)
CPT/HCPCS: 71260; Q9967

== ENCOUNTER 2024-08-03 12:08 | Outpatient (CLI) | payer BC, SELFPAY ==
--- NOTE | ~2024-08-03 | MM_ITS ---
EXAMINATION: MM screening [facility] BI w saumya HISTORY: Screening TECHNIQUE: Craniocaudal and mediolateral oblique 3-D tomosynthesis images were obtained and synthetic 2-D images were generated. CAD analysis was submitted and interpreted. COMPARISON: Comparison to multiple prior studies sequentially, with oldest reviewed study dated 03/06. BREAST PARENCHYMAL COMPOSITION: Not dense: There are scattered areas of fibroglandular density. FINDINGS: There is no evidence of suspicious mass, calcification, or architectural distortion to sugg est malignancy in either breast. There has been no suspicious interval change. IMPRESSION: 1. No mammographic evidence of malignancy. 2. Recommend routine screening mammography in one year. BI-RADS Category 1: Negative Reviewed, dictated and finalized at location B.
== END 2024-08-03 12:09 | disposition home or self-care (01) ==
LOC: MICIMG 12:08
PROVIDERS: PCP Physician Assistant; Visit Provider Physician Assistant
DX: Z12.31 Encounter for screening mammogram for malignant neoplasm of breast (principal)
CPT/HCPCS: 77063; 77067

== ENCOUNTER 2024-12-01 14:20 | Outpatient (CLI) | payer BC, SELFPAY ==
--- NOTE | ~2024-12-01 | CT_ITS ---
EXAMINATION: CT diagnostic chest w con DATE: 12/01/2024 14:46 INDICATION: Lung nodule TECHNIQUE: Computed tomography (CT) of the chest was performed without intravenous contrast. Addition al 3D reconstructions utilizing coronal maximum intensity projection (MIP) were performed. Automated exposure control and iterative reconstruction technique were employed. The dose-length product was 30 5.88 mGy-cm. COMPARISON: 12/03/2023 FINDINGS: A couple unchanged 3 mm nodule in the right upper lobe. Unchanged flat lenticular likely intrafissura l lymph node measuring 5 mm in diameter along the right minor fissure couple unchanged nodules in the anterobasilar segment of the left lower lobe the larger measuring 3-4 mm. No new or enlarging pulmon viktor nodules, pneumonia, pulmonary edema or pleural effusion. Heart size is normal. No pericardial eff usion. Thoracic aorta is normal in caliber with no dissection. Visualized upper abdomen is unremarkab le. Unchanged chronic mild T7 superior endplate compression fracture. Moderate thoracic spondylosis. IMPRESSION: 1. No interval change in a few likely benign small bilateral pulmonary nodules. Reviewed, dictated and finalized at location A. ICAL SCIENTIST
[2024-12-01 14:38] LABS: Estimated Glomerular Filt Rate 56
== END 2024-12-01 14:21 | disposition home or self-care (01) ==
PROVIDERS: PCP Physician Assistant; Visit Provider Physician Assistant
DX: R91.1 Solitary pulmonary nodule (principal)
CPT/HCPCS: 71260; Q9967

== ENCOUNTER 2025-06-19 13:07 | Emergency (ER) | payer BC, SELFPAY ==
--- NOTE | ~2025-06-19 | XR_ITS ---
EXAM: XR ankle RT min 3V, XR foot RT min 3V DATE: 06/19/2025 13:57 (accession [id number]), 06/19/2025 13:58 (accession [id number]) HISTORY: FALL, SWELLING . COMPARISON: None available. FINDINGS: Osteopenia. Curvilinear fragment adjacent to the lateral aspect of the tip of the lateral malleolus. Well-corticated fragments adjacent to the tip of the medial malleolus, may represent enthe sophytes or old fractures. No lytic or blastic lesion. Moderate scattered degenerative change. No ero maciel or periosteal change. Lateral soft tissue swelling. IMPRESSION: Curvilinear displaced fragment adjacent to the lateral aspect of the tip of the lateral m alleolus, periventricular chronic fracture fragment. Reviewed, dictated and finalized at location K. IMPRESSION: Curvilinear displaced fragment adjacent to the lateral aspect of th e tip of the lateral malleolus, periventricular chronic fracture fragment.
--- NOTE | ~2025-06-19 | CT_ITS ---
CT OF right ankle EXAMINATION: CT ankle RT wo con DATE: 06/19/2025 14:49 INDICATION: Right ankle injury. TECHNIQUE: Computed tomography (CT) of the right ankle was performed without intravenous contrast. Au tomated exposure control and iterative reconstruction technique were employed. The dose-length produc t was 413.87 mGy-cm. COMPARISON: X-ray right ankle 06/19/2025 FINDINGS: Decreased mineralization. Moderate degenerative change in the midfoot. Mild Achilles and plantar enth esopathy. Small acute and chronic appearing ossific fragments adjacent to the tip of the lateral mall eolus. Medial malleolus enthesopathy. Considerable lateral soft tissue swelling. Small joint effusion . The visualized flexor and extensor tendons are intact. IMPRESSION: Ossific fragments adjacent to the tip of the lateral malleolus, possibly representing acute and chron ic avulsion fractures. Correlate for pain/tenderness. Reviewed, dictated and finalized at location K. IMPRESSION: Ossific fragments adjacent to the tip of the lateral malleolus, possibly repres enting acute and chronic avulsion fractures. Correlate for pain/tenderness.
--- OUTSIDE RECORDS SUMMARY | 2025-06-19 13:09 | XMS_ITS | Patient Health Record ---
Author Organization [facility] Orthopedics [facility] Address [address] [place], [place] [id number] Care Team Providers Care Project Development Engineer Name Role Phone Bryant Meza Primary Care Provider ALLERGIES No Known Allergies REASON FOR REFERRAL No Information MEDICATIONS Medication SIG (Take, Route, Frequency, Duration) Notes Start Date End Date Status azaTHIOprine Active Amoxicillin 500 MG TAKE 4 CAPULE BY NE TH 1 HOUR BEFORE PROCEDURE for 1 Active Atenolol Active Hydroxychloroquine Sulfate Active SOCIAL HISTORY Tobacco Use: Social History Observation Description Date Details (start date - stop date) Never Smoker NA - NA Sex Assigned At : Social History Observation Description Sex Assigned At Unknown Tobacco Use/Smoking Question Answer Notes Are you a nonsmoker PROBLEMS Problem Type ICD Code Onset Dates Problem Status W/U Status Risk SNOMED Code Notes Problem Primary osteoarthritis of right hip (M16.11) Active confirmed 425504097 Problem H/O total hip arthroplasty (Z96.649) Active confirmed Problem Primary osteoarthritis of right knee (M17.11) Active confirmed 998962750268094 Problem Primary osteoarthritis of left knee (M17.12) Active confirmed 935860682024853 Problem Aftercare following joint replacement surgery (Z47.1) Active confirmed [id number] Problem Presence of artificial knee joint (Z96.659) Active confirmed [id number] PLAN OF TREATMENT Pending Test Test Name Order Date X ray : Hip, right, 2 03/03/2019 X ray : Hip, right, 2 06/04/2019 X ray : Hip, right, 2 05/18/2021 CBC With Differential/Platelet X ray : Knee, left 3 views 02/07/2021 X ray : Knee, left 3 views 03/16/2021 X ray : Knee, left 3 views 03/23/2021 X ray : Knee, left 3 views 05/18/2021 BMP 02/07/2021 COVID-19 PCR/AIM 02/07/2021 Insurance Providers Payer Name Payer Address Payer Phone Subscriber Number Group Number Insured Name Patient Relationship to Insured Coverage Start Date Coverage End Date [employer] [address] [place] [address] [id number] Janki Love Self - patient is the insured MEDICATIONS ADMINISTERED Medication Instructions Date of Administration Dosage Notes Depo-Medrol 80 mg 01/23/2019 MEDICAL (GENERAL) HISTORY Medical History History ICD Code Arthritis Lupus Surgical History Surgery Date(Month/Year) Bilateral Carpal Tunnel ACL; Left Knee Tonsillectomy Right Total Hip Replacement Arterial Clotting in Left Arm Hospitalization History Reason Date(Month/Year) Same as Surgical Hx
--- OUTSIDE RECORDS SUMMARY | 2025-06-19 13:09 | XMS_ITS | Clinical Summary ---
Author Organization [facility] Address [address] Solisn: Epic Prelude ADT RAKAN CURTIS [id number] Care Team Providers Care Cloth Dyer Name Role Phone Unavailable Primary Care Provider Unavailabl e Social History Tobacco Use Types Packs/Day Years Used Date Smoking Tobacco: Never Assessed Comments Unknown Sex and Gender Information Value Date Recorded Sex Assigned at Not on file Legal Sex Female 3:49 AM GLOBAL LEAD Gender Identity Not on file Sexual Orientation Not on file Plan of Treatment Health Maintenance Due Date Last Done Comments DTAP/TDAP/TD VACCINES (1 - Tdap) 1981 HPV/Cotest (21-29) 1983 HPV/Cotest (30-65) 1992 CERVICAL CANCER SCREENING 03/04/2003 PAP SMEAR 03/04/2003 03/04/2000, 11/08/1999 COLORECTAL SCREENING 2007 Colorectal Cancer Screening 2007 FIT-DNA Q 3 years 2007 FIT/FOBT Q 1 year 2007 Flex Sig/CT Colonography Q 5 years 2007 BREAST CANCER SCREENING 03/10/2012 03/10/2011 ZOSTER VACCINE (1 of 2) 2012 INFLUENZA VACCINE (#1) 2025 RSV VACCINE (60+ or ) (1 - 1-dose 75+ series) 2037
--- OUTSIDE RECORDS SUMMARY | 2025-06-19 13:10 | XMS_ITS | Clinical Summary ---
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 This disclosure is being madepursuant to the Care Everywhere program and may not contain all information available regarding this patient. Last updated 18.[facility] Allergies No known active allergies Medications * Be aware that medications may not be up to date on this document. Alwaysverify current medications with the patient. atenolol (TENORMIN) 25 MG tablet Take 25 mg by mouth daily. Active hydroxychloroqu ine (PLAQUENIL) 200 MG tablet Take 200 mg by mouth 2 times daily. Active DULoxetine (CYMBALTA) 60 MG capsule Take 60 mg by mouth daily. Active zolpidem CR (AMBIEN CR) 12.5 MG tablet Take 12.5 mg by mouth nightly as needed. Active valACYclovir (VALTREX) 500 MG tablet Take 500 mg by mouth once daily as needed. 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 10/18 Social History Tobacco Use Types Packs/Day Years Used Date Smoking Tobacco: Never Smokeless Tobacco: Never Tobacco Cessation:Counseling Given: Yes Alcohol Use Standard Drinks/Week Comments Yes 0 (1 standard drink = 0.6 oz pur e alcohol) occasionally Comments No Sex and Gender Information Value Date Recorded Sex Assigned at Not on file Legal Sex Female 6:31 AM CLIENT ADVISOR Gender Identity Female 10/17/2017 2:25 PM CLIENT ADVISOR Sexual Orientation Not on file Last Filed Vital Signs Vital Sign Reading Time Taken Comments Blood Pressure 112/70 12/06/2017 9:49 AM CLIENT ADVISOR Pulse 89 12/06/2017 9:49 AM CLIENT ADVISOR Temperature 36.1 C (97 F) 11/01/2017 3:26 PM CLIENT ADVISOR Respiratory Rate 18 12/06/2017 9:49 AM CLIENT ADVISOR Oxygen Saturation 99% 12/06/2017 9:49 AM CLIENT ADVISOR Inhaled Oxygen Concentration 95% 2010 7 :28 AM CLIENT ADVISOR Weight 87.5 kg (193 lb) 12/06/2017 9:49 AM CLIENT ADVISOR Height 167.6 cm (5' 6) 12/06/2017 9:49 AM CLIENT ADVISOR Body Mass Index 31.15 12/06/2017 9:49 AM CLIENT ADVISOR Plan of Treatment Health Maintenance Due Date Last Done Comments COLOGUARD (AGES 45-75) - COL ON CA SCREENING 1960 CT COLONOGRAPHY - COLON CA SCREENING 1960 FIT - COLON CA SCREENING 1962 FLEX SIG - COLON CA SCREENING 1962 MAMMOGRAM 1962 COVID-19 VACCINE (#1) 1967 HIV SCREENING 1977 HEPATITIS C SCREENING 11/26/1980 DTAP/TDAP/TD VACCINES (1 - Tdap) 1981 PNEUMOCOCCAL VACCINE 50+ (1 of 2 - PCV) 1981 ZOSTER VACCINE (1 of 2) 1981 PAP SMEAR 1983 SCREENING FOR DIABETES 10/18/2017 07/21/2012 Respiratory Syncytial Virus (RSV) Vaccine Pt: or over 60 yrs (1 - Risk 60-74 years 1-dose series) 2022 COLON MONITORING 04/23/2024 04/23/2014, 04/23/2014 COLONOSCOPY - COLON CA SCREENING 04/23/2024 04/23/2014, 04/23/2014 Colorectal Cancer Screening 04/23/2024 DEPRESSION SCREENING 11/11/2024 INFLUENZA VACCINE (#1) 2025 08/11/2012 HEPATITIS B VACCINE Aged Out No longe r eligible based on patient's age to complete this topic HIB VACCINE Aged Out No longer eligi ble based on patient's age to complete this topic HPV VACCINE Aged Out No longer eligi ble based on patient's age to complete this topic MENINGOCOCCAL (Group B) VACCINE SHARED DECISION-MAKING Aged Out No longer eligible based on patient's age to complete this topic MENINGOCOCCAL GROUPS A/C/Y/W VACCINE Aged Out No longer eligible b ased on patient's age to complete this topic Procedures Procedure Name Priority Date/Time Associated Diagnosis Comments ENDOSCOPY, COLON, SCREENING Routine 04/23/2014 7:57 AM CDT COMPREHENSIVE METABOLIC PANEL STAT 07/21/2012 6:30 AM CDT from Last 3 Months or Most Recently Relevant to Health Maintenance Results * ENDOSCOPY, COLON, SCREENING (04/23/2014 7:57 AM CDT) Report Endoscopy POC _ Patient Name: Kelli Love Procedure Date: 04/23/2014 7:57 AM Date of : 1960 Admit Type: Outpatient Age: 53 Gender: Female Attending MD: Tate Beck MD _ Procedure: Colonoscopy Indications: Screening for colorectal malignant neoplasm Providers: Tate Beck MD (Doctor), Destinee Dwyer RN, Sherie Etienne, Nickel Plater Referring MD: Rashi Bourgeois MD (Referring MD) Medicines: See the Anesthesia note for documentation of the administered medications Complications: No immediate complications. _ Procedure: After I obtained informed consent, the scope was passed under direct vision. Throughout the procedure, the patient's blood pressure, pulse, and oxygen saturations were monitored continuously. The Colonoscope was introduced through the anus and advanced to the terminal ileum, with identification of the appendiceal orifice and IC valve. The ileocecal valve, appendiceal orifice, terminal ileum and rectum were photographed. Impression: - The examined portion of the ileum was normal. - The entire examined colon is normal on direct and retroflexion views. Findings: The perianal and digital rectal examinations were normal. The terminal ileum appeared normal. The entire examined colon appeared normal on direct and retroflexion views. _ Recommendation: - Discharge patient to home. - Return to previous diet. - Continue present medications. - Repeat colonoscopy in 10 years for surveillance. - Call my office at [phone] if you have any questions. Procedure Code(s): --- Professional --- G0121, Colorectal cancer screening; colonoscopy on individual not meeting criteria for high risk --- Technical --- G0121, Colorectal cancer screening; colonoscopy on individual not meeting criteria for high risk Diagnosis Code(s): --- Professional --- V76.51, Special screening for malignant neoplasms of colon --- Technical --- V76.51, Special screening for malignant neoplasms of colon CPT copyright 2013 [employer]. All rights reserved. The codes documented in this report are preliminary and upon hydroelectric powerplant supervisor review may be revised to meet current compliance requirements. Tate Beck MD 04/23/2014 8:29 AM Number of Addenda: 0 Note Initiated On: 04/23/2014 7:57 AM [facility] 04/23/2014 7:57 AM CDT Narrative [facility] - 04/23/2014 8:31 AM CDT Procedure Note Tate Beck MD - 04/23/2014 8:31 AM CDT us Tate Beck MD GI PROCEDURE ORDERABLES E dited [facility] * (ABNORMAL) COMPREHENSIVE METABOLIC PANEL (07/21/2012 6:30 AM CDT) Sodium 138 136 - 145 mmol/L [facility] Potassium 3.7 3.5 - 5.1 mmol/L [facility] Chloride 105 98 - 107 mmol/L [facility] BUN 10 7 - 21.0 mg/dl [facility] Creatinine 1.01 0.5 - 1.3 mg/dl [facility] Glucose 96 65 - 105 mg/dl [facility] Calcium 8.5 8.5 - 10.1 mg/dl [facility] Alkaline Phosphatase 44 38 - 126 U/L [facility] AST 22 5.0 - 40 U/L [facility] Bilirubin Total 0.5 0.2 - 1.0 mg/dl [facility] Protein Total 6.8 6.4 - 8.2 gm/dl [facility] Albumin 3.4 3.4 - 5.0 gm/dl [facility] CO2 24 22 - 30 mmol/L [facility] ALT 35 12.0 - 78.0 U/L [facility] eGFR by MDRD 58(L) >60 mL/min/1.7 3m2 [facility] Comment eGFR [facility] Comment: The eGFR does not apply to patients who are younger than 18 or older than 70. Blood specimen (specimen) BLOOD SPECIMEN / Unknown 07/21/2012 6:30 AM CDT 07/21/2012 6:44 AM CDT Alex Valles MD LAB - CHEMISTRY ORDERABLES Kavin anna [facility] Organization Address City/State/ZIP Co de Phone Number [facility] [address] [place] [address] from Last 3 Months or Most Recently Relevant to Health Maintenance Insurance [employer] Care Teams Glass Blowing Lathe Operator Relationship Specialty Start Date End Date Vianney Newton PA [address] [place] [address] PCP - General Physician Mix Crusher Operator 12/06/17 Keily Bruce MD Surgery 10/18/17 Bety Grover, RN Registered Nurse 11/01/17
--- OUTSIDE RECORDS SUMMARY | 2025-06-19 13:10 | XMS_ITS | Clinical Summary ---
Author Organization [facility] [address] Address [address] [place] [address] Phone Care Team Providers Care Development Writer Name Role Phone Lucien Simon MD Unavailable [phone] Ira Leigh MD Unavailable [phone] Kennedy Lynch MD Unavailable [facility] ov[facility] Allergies No known active allergies Medications DULoxetine DR (CYMBALTA) 60 mg capsule take 1 capsule (60MG) by oral route every day 30 2 0 Active zolpidem CR (AMBIEN CR) 12.5 mg CR tablet take 1 tablet (12.5MG) by oral route every day at bedtime 90 0 2 Active cholecalciferol (VITAMIN D-3) 2,000 unit capsule Take by mouth daily 7 Active EPINEPHrine 0.3 mg/0.3 mL auto-injection syringe EpiPen 2-Max 0.3 mg/0.3 mL injection, auto-injector Active amoxicillin 500 mg capsule TAKE 4 CAPSULES BY MOUTH 1 HOUR BEFORE PROCEDURE 0 Active atenoloL (TENORMIN) 25 mg tablet Take 1 tablet (25 mg total) by mouth daily 0 Active valACYclovir (VALTREX) 1 gram tablet valacyclovir 1 gram tablet TAKE 2 TABLETS EVERY 12 HOURS NEEDED Active simvastatin (ZOCOR) 20 mg tablet Take 1 tablet (20 mg total) by mouth every evening 0 Active LORazepam (ATIVAN) 0.5 mg tablet TAKE 1/2 TO 1 TABLET BY MOUTH TWICE DAILY NEEDED 1 Active Eliquis 5 mg tablet Take 1 tablet (5 mg total) by mouth 2 (two) times a day 3 Active omeprazole (PriLOSEC) 40 mg capsule 4 Active hydroxychloroqu ine (PLAQUENIL) 200 mg tablet TAKE 1 TABLET BY MOUTH TWICE A DAY 180 tablet 1 5 Active azaTHIOprine (IMURAN) 50 mg tablet TAKE 2 TABLETS BY MOUTH TWICE A DAY 360 tablet 1 5 Active Active Problems Problem Noted Date Diagnosed Date DVT (deep venous thrombosis) 10/21/2023 Acute pulmonary embolism without acute cor pulmo nale 10/21/2023 On continuous oral anticoagulation 10/21/2023 Osteopenia 06/11/2023 Assessment & Plan (06/11/2023 8:58 AM CDT): BMD per PCP reportedly displayed osteopenia. Currently taking vitamin D. Okay to stay calcium. History of blood clots 03/17/2021 Assessment & Plan (06/17/2025 9:19 AM CDT): Previously positive anti-cardiolipin and beta-2 glycoprotein. LUE arterial thrombosis in 2020. RLE DVT and PE in 2022 so back on eliquis 5mg BID and saw checo Leigh 09/2023. Repeat serologic evaluation in 02/2024 was unremarkable and is to remain on Eliquis indefinitely. Assessment & Plan (02/11/2025 8:26 AM CDT): Previously positive anti-cardiolipin and beta-2 glycoprotein. LUE arterial thrombosis in 2020. RLE DVT and PE in 2022 so back on eliquis 5mg BID and saw checo Leigh 09/2023. Repeat serologic evaluation in 02/2024 was unremarkable and is to remain on Eliquis indefinitely. Assessment & Plan (10/13/2024 8:26 AM APPLICATION COUNSELOR): Previously positive anti-cardiolipin and beta-2 glycoprotein. LUE arterial thrombosis in 2020. RLE DVT and PE in 2022 so back on eliquis 5mg BID and saw checo Leigh 10/09. Repeat evaluation in 02/2024 was unremarkable and is to remain on Eliquis indefinitely. Assessment & Plan (06/11/2024 9:02 AM CDT): Previously positive anti-cardiolipin and beta-2 glycoprotein. LUE arterial thrombosis in 2020. RLE DVT and PE in 2022 so back on eliquis 5mg BID and saw checo Leigh 10/09. Repeat evaluation in 02/2024 was unremarkable and is to remain on Eliquis indefinitely. Assessment & Plan (02/10/2024 9:12 AM CDT): Previously positive anti-cardiolipin and beta-2 glycoprotein. LUE arterial thrombosis in 2020. RLE DVT and PE in 2022 so back on eliquis 5mg BID and saw checo Leigh 10/09. They are repeating APS labs again in 02/2024. Assessment & Plan (10/11/2023 8:59 AM APPLICATION COUNSELOR): Previously positive anti-cardiolipin and beta-2 glycoprotein. LUE arterial thrombosis in 2020. RLE DVT and PE in 2022 so back on eliquis 5mg BID and saw checo Leigh 10/09. They are repeating APS labs next visit. Assessment & Plan (06/16/2021 11:10 AM CDT): Previously positive anti-cardiolipin and beta-2 glycoprotein. Will repeat labs today per heme. Last note with heme suggested they would restart anti-coagulation if values were >40. Assessment & Plan (03/17/2021 8:51 AM CDT): Previously positive anti-cardiolipin and beta-2 glycoprotein. Will repeat this today. If still positive, will need to f/u with heme Dr. Leigh about possibly restarting anti-coagulation. Generalized subcutaneous nodules 11/08/2020 Acute urticaria 05/11/2020 Autoimmune hepatitis 05/11/2020 Cervical radiculopathy 05/11/2020 Assessment & Plan (06/11/2023 8:56 AM CDT): Affecting the LUE. Prior imaging displayed DJD per patient report. She is going to further discuss with PCP. Degeneration of cervical intervertebral disc 11/2019 Indigestion 05/11/2020 Mass of anterior abdominal wall 05/11/2020 Mild anxiety 05/11/2020 Protein S deficiency 05/11/2020 Rash 05/11/2020 Recurrent major depression in remission 05/11/20 20 Sprain of scapholunate ligament 05/11/2020 Wrist joint pain 05/11/2020 Arterial thrombosis 05/02/2020 Assessment & Plan (05/02/2020 7:33 AM CDT): - Presented with Left UE ischemia. S/p OR as above. - Hematology consulted for evaluation. Recommendations: - Check PNH profile, LDH, haptoglobin and reticulocyte count - Check anti-cardiolipin IgG and IgM, [id number] IgG and IgM. - If APLS labs are positive, recommend transitioning to warfarin at the time of discharge, otherwise should be okay for a DOAC such as eliquis or Xarelto depending on insurance. - Hematology follow up to be scheduled by Hematology. - Currently awaiting blood work results to decide on outpatient anticoagulation. Will ponce check Xarelto and Eliquis while awaiting results. 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 - To OR emergently for Duplex Ultrasound Examination of left upper extremity arteries and veins + Left brachial, distal radial, and distal ulnar exploration + Thrombectomy of brachial, radial, ulnar, anterior interosseus, and palmar arch + Diagnostic angiogram of left upper extremity performed on 04/28 - To ICU postoperatively - Now on surgical floor and remains well with palpable pulses - 05/01: Continue anticoagulation, elevate above head to reduce swelling, neurovascular checks - Hand consultation pending - Rheumatology recommendations Hypotension due to drugs 06/30/2019 Aortic atherosclerosis 06/30/2019 Near syncope 03/31/2019 Palpitations 03/31/2019 Status post hip replacement, right 2018 Overview (04/07/2019): R TED scheduled for 05/08/[address] Meza Assessment & Plan (03/08/2022 1:31 PM CDT): S/p R TED on 05/08/[address] Meza. Finished PT. Overall, pain has significantly improved. Able to do normal daily function without limitations. Assessment & Plan (12/14/2021 8:37 AM APPLICATION COUNSELOR): S/p R TED on 05/08/[address] Meza. Finished PT. Overall, pain has significantly improved. Able to do normal daily function without limitations. Assessment & Plan (09/15/2021 8:51 AM CDT): S/p R TED on 05/08/[address] Meza. Finished PT. Overall, pain has significantly improved. Able to do normal daily function without limitations. Assessment & Plan (06/16/2021 11:07 AM CDT): S/p R TED on 05/08/[address] Meza. Finished PT. Overall, pain has significantly improved. Able to do normal daily function without limitations. Assessment & Plan (03/17/2021 8:48 AM CDT): S/p R TED on 05/08/[address] Meza. Finished PT. Overall, pain has significantly improved. Able to do normal daily function without limitations. Assessment & Plan (12/16/2020 8:29 AM APPLICATION COUNSELOR): R TED on 05/08/[address] Meza. Finished PT. Overall, pain has significantly improved. Able to do normal daily functions without limitations. Assessment & Plan (09/16/2020 8:33 AM APPLICATION COUNSELOR): R TED on 05/08/[address] Meza. Finished PT. Overall, pain has significantly improved. Able to do normal daily functions without limitations. Assessment & Plan (08/08/2020 4:14 PM CDT): R TED on 05/08/[address] Meza. Finished PT. Overall, pain has significantly improved. Able to do normal daily functions without limitations. Assessment & Plan (06/03/2020 3:20 PM CDT): R TED on 05/08/[address] Meza. Finished PT. Overall, pain has significantly improved. Able to do normal daily functions without limitations. Assessment & Plan (04/28/2020 9:57 AM CDT): R TED on 05/08/[address] Meza. Finished PT. Overall, pain has significantly improved. Able to do normal daily functions without limitations. Assessment & Plan (04/21/2020 10:14 AM CDT): R TED on 05/08/[address] Meza. Finished PT. Overall, pain has significantly improved. Able to do normal daily functions without limitations. Assessment & Plan (03/04/2020 3:33 PM CDT): R TED on 05/08/[address] Meza. Finished PT. Overall, pain has significantly improved. Able to do normal daily functions without limitations. Assessment & Plan (11/12/2019 8:54 AM APPLICATION COUNSELOR): R TED on 05/08/[address] Meza. Finished PT. Continue home exercises. Assessment & Plan (09/28/2019 8:32 AM APPLICATION COUNSELOR): R TED on 05/08/[address] Meza. Finished PT. Continue home exercises. Assessment & Plan (07/06/2019 10:32 AM CDT): R TED on 05/08/[address] Meza. Finished PT. Continue home exercises. Assessment & Plan (04/07/2019 11:27 AM CDT): Gradually worsening right anterior groin/hip pain for the past few months. Radiographs from 11/2018 revealed DJD with joint space narrowing and osteophytes. MRI from 12/2018 revealed moderate right hip OA with high-grade chondromalacia of the acetabulum. Saw ortho Dr. Meza who did a right internal hip injection that offered some benefit. Scheduled for right total hip arthroplasty on 05/08/[address] Meza. Assessment & Plan (02/02/2019 10:11 AM CDT): Gradually worsening right anterior groin/hip pain for the past couple of months. Radiographs from 11/2018 revealed DJD with joint space narrowing and osteophytes. MRI from 12/2018 revealed moderate right hip OA with high-grade chondromalacia of the acetabulum. Saw ortho Dr. Meza who did a right internal hip injection that offered some benefit and she continues to follow with ortho. Assessment & Plan (01/05/2019 8:47 AM APPLICATION COUNSELOR): Gradually worsening R anterior groin/hip pain for the last couple of months. Now is painful to flex and rotate the hip. Sometimes has to use her hands to lift the leg in and out of car. No injury. Xray 11/29 showed djd with joint space narrowing and osteophytes MRI 12/30 showed Moderate R hip OA with high-grade chondromalacia of the acetabulum Will refer to ortho Dr. eMza Assessment & Plan (2018 5:08 PM APPLICATION COUNSELOR): Gradually worsening R anterior groin/hip pain for the last couple of months. Now is painful to flex and rotate the hip. Sometimes has to use her hands to lift the leg in and out of car. No injury. Will xray and then plan to MRI if xray normal. Could be synovitis, tendon/ligament issues, bursitis, AVN, or DJD. Bilateral carpal tunnel syndrome 01/23/2018 Assessment & Plan (01/23/2018 8:56 AM CDT): S/p recent bilat CTS release. C/o L thumb weak and hard to welder fitter arc. Consider trying Pt, she wants to wait. Benign neoplasm of skin of upper extremity 10/18 Lump 07/29/2017 Assessment & Plan (01/23/2018 8:56 AM CDT): Biopsies showed lipomas Assessment & Plan (07/29/2017 3:46 PM CDT): Multiple subcutaneous lumps on arms, legs, abd. Most likely lipomas. However pt has several new ones that are occasionally erythematous and have actually gotten smaller since starting azathioprine. We wonder if these could be lupus panniculitis instead of lipomas. Will get opinion from [facility], possible biopsy. Dermatitis 07/29/2017 Assessment & Plan (07/29/2017 3:50 PM CDT): New rashes in flexor aspect of bilat elbows, also around wrists. No recent outdoor/sun exposure. Improves somewhat with triamcinolone. To see derm again soon and get opinion. Could biopsy. High risk medications (not anticoagulants) long- term use 05/24/2017 Overview (03/05/2018): Neg quantiferon 02/26 Assessment & Plan (06/17/2025 9:19 AM CDT): Normal TPMT Quantiferon negative: 02/2018 Hepatitis negative: 07/2017 Assessment & Plan (02/11/2025 8:26 AM CDT): Normal TPMT Quantiferon negative: 02/2018 Hepatitis negative: 07/2017 Assessment & Plan (10/13/2024 8:26 AM APPLICATION COUNSELOR): Normal TPMT Quantiferon negative: 02/2018 Hepatitis negative: 07/2017 Assessment & Plan (06/11/2024 9:01 AM CDT): Normal TPMT Quantiferon negative: 02/2018 Hepatitis negative: 07/2017 Assessment & Plan (02/10/2024 9:12 AM CDT): Normal TPMT Quantiferon negative: 02/2018 Hepatitis negative: 07/2017 Assessment & Plan (10/11/2023 8:58 AM APPLICATION COUNSELOR): Normal TPMT Quantiferon negative: 02/2018 Hepatitis negative: 07/2017 Assessment & Plan (06/11/2023 8:27 AM CDT): Normal TPMT Quantiferon negative: 02/2018 Hepatitis negative: 07/2017 Assessment & Plan (02/12/2023 8:29 AM CDT): Normal TPMT Quantiferon negative: 02/2018 Hepatitis negative: 07/2017 Assessment & Plan (11/01/2022 8:26 AM APPLICATION COUNSELOR): Normal TPMT Quantiferon negative: 02/2018 Hepatitis negative: 07/2017 Assessment & Plan (07/09/2022 9:46 AM CDT): Normal TPMT Quantiferon negative: 02/2018 Hepatitis negative: 07/2017 Assessment & Plan (03/08/2022 1:30 PM CDT): Normal TPMT Quantiferon negative: 02/2018 Hepatitis negative: 07/2017 Assessment & Plan (12/14/2021 8:26 AM APPLICATION COUNSELOR): Normal TPMT Quantiferon negative: 02/2018 Hepatitis negative: 07/2017 Assessment & Plan (09/15/2021 8:34 AM CDT): Normal TPMT Quantiferon negative: 02/2018 Hepatitis negative: 07/2017 Assessment & Plan (06/16/2021 11:06 AM CDT): Normal TPMT Quantiferon negative: 02/2018 Hepatitis negative: 07/2017 Assessment & Plan (03/17/2021 8:48 AM CDT): Normal TPMT Quantiferon negative: 02/2018 Hepatitis negative: 07/2017 Assessment & Plan (12/16/2020 8:29 AM APPLICATION COUNSELOR): Normal TPMT Quantiferon negative: 02/2018 Hepatitis negative: 07/2017 Assessment & Plan (09/16/2020 8:33 AM APPLICATION COUNSELOR): Normal TPMT Quantiferon negative: 02/2018 Hepatitis negative: 07/2017 Assessment & Plan (08/08/2020 3:38 PM CDT): Normal TPMT Quantiferon negative: 02/2018 Hepatitis negative: 07/2017 Assessment & Plan (06/03/2020 3:18 PM CDT): Normal TPMT Quantiferon negative: 02/2018 Hepatitis negative: 07/2017 Assessment & Plan (04/28/2020 9:52 AM CDT): Normal TPMT Quantiferon negative: 02/2018 Hepatitis negative: 07/2017 Assessment & Plan (04/21/2020 10:14 AM CDT): Normal TPMT Quantiferon negative: 02/2018 Hepatitis negative: 07/2017 Assessment & Plan (03/04/2020 3:06 PM CDT): Normal TPMT Quantiferon negative: 02/2018 Hepatitis negative: 07/2017 Assessment & Plan (11/12/2019 8:59 AM APPLICATION COUNSELOR): Normal TPMT Quantiferon negative: 02/2018 Hepatitis negative: 07/2017 Assessment & Plan (09/28/2019 8:33 AM APPLICATION COUNSELOR): Normal TPMT Quantiferon negative: 02/2018 Hepatitis negative: 07/2017 Assessment & Plan (07/06/2019 10:41 AM CDT): Normal TPMT Quantiferon negative: 02/2018 Hepatitis negative: 07/2017 Assessment & Plan (04/07/2019 11:26 AM CDT): Normal TPMT Quantiferon negative: 02/2018 Hepatitis negative: 07/2017 Assessment & Plan (02/02/2019 10:09 AM CDT): Normal TPMT Quantiferon negative: 02/2018, recheck next visit. Hepatitis negative: 07/2017 Assessment & Plan (01/05/2019 5:47 PM APPLICATION COUNSELOR): Normal tpmt quantiferon neg 03/03/18 Neg hepatitis panel 9/17 Assessment & Plan (2018 10:16 AM APPLICATION COUNSELOR): Normal tpmt quantiferon neg 03/03/18 Neg hepatitis panel 9/17 Assessment & Plan (10/17/2018 9:49 AM APPLICATION COUNSELOR): Normal tpmt quantiferon neg 03/03/18 Neg hepatitis panel 9/17 Assessment & Plan (05/02/2018 4:21 PM CDT): Normal tpmt quantiferon neg 03/03/18 Neg hepatitis panel 9/17 Assessment & Plan (03/03/2018 12:08 PM CDT): Normal tpmt quantiferon ordered 03/03/ Neg hepatitis panel 9/17 Gastroesophageal reflux disease 03/27/2014 Overview (02/14/2017): Gastroesophageal reflux disease Pain in pelvis 03/27/2014 Overview (02/14/2017): Pain in pelvis Hyperlipidemia 03/27/2014 Overview (02/15/2017): HLD (hyperlipidemia) Assessment & Plan (11/12/2019 8:59 AM APPLICATION COUNSELOR): Labs per pcp request. Assessment & Plan (02/02/2019 10:12 AM CDT): Labs per pcp request. Systemic lupus erythematosus 03/27/2014 Overview (05/11/2020): eye exam 03/24 +JULIO CESAR, cardiolipin, b2gp1, SSA hx oral ulcers, pleurisy, hives, arthritis, dvts? (on ocp) normal tpmt Factor V Leiden- heterozygous (05/01/2020) (? Patient has no recollection of dvts, being on ocp, or factor V leiden mutation) Avise (04/21/2020): +JULIO CESAR 1:80 speckled pattern, cb-cap 3c4d (34), cb-cap bc4d (96), anti-Ro60 (326) Stopped Benlysta 01/05/19 Stopped Cellcept 09/28/19 Restarted azathioprine 09/18/19 - was on 100mg BID in the past Stopped azathioprine 11/12/2019 as she feels fine since off cellcept Did not qualify for SLE clinical research study ER stopped prednisone and azathioprine. Continued HCQ Assessment & Plan (06/17/2025 9:18 AM CDT): Doing well overall. Swelling and pain in left wrist improved after steroid injection. Joint pain present but manageable. Hx of oral ulcers and photosensitive rashes. Usually notices rashes more in the summer and using Clobetasol 0.05% per derm with some relief. -Continue azathioprine 100mg BID. -Continue HCQ 200mg BID. -Advised to take tylenol PRN joint pain. -Continue routine eye exams to monitor for plaquenil toxicity. -Routine labs today. -Follow up in 3-4 months. Sooner if needed. Assessment & Plan (02/11/2025 9:38 AM CDT): Doing well overall. Hx of oral ulcers and photosensitive rashes. Usually notices rashes more in the summer and using Clobetasol 0.05% per derm with some relief. -Continue azathioprine 100mg BID. -Continue HCQ 200mg BID. -Advised to take tylenol PRN joint pain. -Continue routine eye exams to monitor for plaquenil toxicity. -Routine labs today. -Follow up in 3-4 months. Sooner if needed. Assessment & Plan (10/13/2024 8:42 AM APPLICATION COUNSELOR): Improvement of pain in the wrists since increasing AZA last visit. Hx of oral ulcers and photosensitive rashes. Usually notices rashes more in the summer and using a new topical per derm with some relief. Continue azathioprine 100mg BID. Continue HCQ 200mg BID. Advised to take tylenol PRN joint pain. Continue routine eye exams to monitor for plaquenil toxicity. Recent labs per PCP so will defer labs today. Follow up in 3-4 months. Sooner if needed. Assessment & Plan (06/11/2024 9:17 AM CDT): Increased pain in the wrists (L>R). Hx of oral ulcers and photosensitive rashes. Usually notices rashes more in the summer. Increase azathioprine 100mg BID. Continue HCQ 200mg BID. Advised to take tylenol PRN joint pain. Continue routine eye exams to monitor for plaquenil toxicity. Routine labs today. Follow up in 3-4 months. Sooner if needed. Assessment & Plan (02/10/2024 9:11 AM CDT): Joint symptoms remain stable. Hx of oral ulcers and photosensitive rashes. Denies any CTD symptoms today. Usually notices rashes more in the summer. Continue azathioprine 100mg AM and 50mg PM. Should joint complaints progress, could consider increasing AZA 100mg BID in the future. Continue HCQ 200mg BID. Continue routine eye exams to monitor for plaquenil toxicity. Routine labs today. Follow up in 3-4 months. Sooner if needed. Assessment & Plan (10/11/2023 8:57 AM APPLICATION COUNSELOR): Joint symptoms remain stable. Hx of oral ulcers and photosensitive rashes. Denies any CTD symptoms today. Usually notices rashes more in the summer. Continue azathioprine 100mg AM and 50mg PM. Should joint complaints progress, could consider increasing AZA 100mg BID in the future. Continue HCQ 200mg BID. Continue routine eye exams to monitor for plaquenil toxicity. Routine labs today. Follow up in 3-4 months. Sooner if needed. Assessment & Plan (06/11/2023 8:42 AM CDT): Joint symptoms remain stable. Hx of oral ulcers and photosensitive rashes. Denies any CTD symptoms today. Usually notices rashes more in the summer. Continue azathioprine 100mg AM and 50mg PM. Should joint complaints progress, could consider increasing AZA 100mg BID in the future. Continue HCQ 200mg BID. Continue routine eye exams to monitor for plaquenil toxicity. Routine labs today. Follow up in 3-4 months. Sooner if needed. Seen with Dr. Lynch. Assessment & Plan (02/12/2023 8:39 AM CDT): Joint symptoms remain stable with main complaint still being swelling/pain in the left wrist however this is tolerable. Hx of oral ulcers and photosensitive rashes. Denies any CTD symptoms today. Usually notices rashes more in the summer. Continue azathioprine 100mg AM and 50mg PM. Should joint complaints progress, could consider increasing AZA 100mg BID in the future. Continue HCQ 200mg BID. Continue routine eye exams to monitor for plaquenil toxicity. Routine labs today. Follow up in 3-4 months. Sooner if needed. Assessment & Plan (11/01/2022 8:42 AM APPLICATION COUNSELOR): Joint symptoms slightly increased with colder weather. Offered steroids however patient defers. Hx of oral ulcers and photosensitive rashes. Denies any CTD symptoms today. Usually notices rashes more in the summer. Continue azathioprine 100mg AM and 50mg PM. Should joint complaints progress, could consider increasing AZA 50mg BID and she will call if she increased before next visit. Continue HCQ 200mg BID. Continue routine eye exams to monitor for plaquenil toxicity. Routine labs today. Follow up in 3-4 months. Sooner if needed. Assessment & Plan (07/09/2022 10:00 AM CDT): Joint symptoms remain stable. Hx of oral ulcers and photosensitive rashes. Denies any CTD symptoms today. Usually notices rashes more in the summer. Noticing some increased pain and swelling in the R 2nd digit that has recently improved so defer changes to her treatment at this time. Overall, continues to be doing well with current treatment. Continue azathioprine 100mg AM and 50mg PM. Should joint complaints progress, could consider increasing AZA 50mg BID next visit. Continue HCQ 200mg BID. Continue routine eye exams to monitor for plaquenil toxicity. Routine labs today. Follow up in 3- 4 months. Sooner if needed. Assessment & Plan (03/08/2022 1:30 PM CDT): Joint symptoms remain stable. Hx of oral ulcers and photosensitive rashes. Denies any CTD symptoms today. Usually notices rashes more in the summer. Overall, continues to be doing well with current treatment. Continue azathioprine 100mg AM and 50mg PM. Continue HCQ 200mg BID. Continue routine eye exams to monitor for plaquenil toxicity. Recent labs per pcp. Follow up in 3-4 months. Sooner if needed. Assessment & Plan (12/14/2021 8:39 AM APPLICATION COUNSELOR): Joint symptoms remain stable. Having some oral ulcers but denies any today. C/o photosensitive rashes but always notices this more in the summer. Overall, continues to be doing well with current treatment. Continue azathioprine 100mg AM and 50mg PM. Continue HCQ 200mg BID. Continue routine eye exams to monitor for plaquenil toxicity. Routine labs to be mailed to patient. Follow up in 3-4 months. Sooner if needed. Advised patient to call the office to schedule f/u. Assessment & Plan (09/15/2021 8:51 AM CDT): Low cdai. Minimal synovitis without tenderness on peripheral exam today. C/o photosensitive rashes but always notices this more in the summer and has no obvious rash on exam today. Overall, continues to be doing well with current treatment. Continue azathioprine 100mg AM and 50mg PM. Continue HCQ 200mg BID. Continue routine eye exams to monitor for plaquenil toxicity. Routine labs today. Follow up in 3- 4 months. Sooner if needed. Assessment & Plan (06/16/2021 11:05 AM CDT): Low cdai. Minimal synovitis without tenderness on peripheral exam today. C/o photosensitive rashes but always notices this more in the summer and has no obvious rash on exam today. Overall, continues to be doing well with current treatment. Continue azathioprine 100mg AM and 50mg PM. Continue HCQ 200mg BID. Continue routine eye exams to monitor for plaquenil toxicity. Routine labs today and will add on labs per heme. Follow up in 3-4 months. Sooner if needed. Assessment & Plan (03/17/2021 8:49 AM CDT): Low cdai. Minimal synovitis without tenderness on peripheral exam today. Overall, appears to be doing well with current treatment. Continue azathioprine 100mg AM and 50mg PM. Continue HCQ 200mg BID. Continue routine eye exams to monitor for plaquenil toxicity. Routine labs today and will add on labs per heme. Follow up in 3-4 months. Sooner if needed. Assessment & Plan (12/16/2020 9:17 AM APPLICATION COUNSELOR): Low cdai. Synovitis and tenderness improved with increased azathioprine. Overall, appears to be doing well with current treatment. Continue azathioprine 100mg AM and 50mg PM. If symptoms are worsening prior to next visit, advised to call and we can increase azathioprine 100mg BID. Continue HCQ 200mg BID. Continue routine eye exams to monitor for plaquenil toxicity. Routine labs today and will add on labs per heme. Follow up in 3 months. Sooner if needed. Assessment & Plan (09/16/2020 9:07 AM APPLICATION COUNSELOR): Moderate cdai. Continues to have synovitis with tenderness noted on peripheral exam today. Tolerating azathioprine. Was on 100mg BID in the past so will continue to titrate based on continued synovitis. Increase azathioprine 50mg BID. Patient will call in 30 days with response and will titrate if necessary. Continue HCQ 200mg BID. Continue routine eye exams to monitor for plaquenil toxicity. Routine labs today. Follow up in 2-3 months. Sooner if needed. Assessment & Plan (08/08/2020 4:13 PM CDT): Moderate cdai. Several swollen and tender joints noted on peripheral exam today. Noticing increased joint stiffness and pain lately. Remains on HCQ. [place] she did better with azathioprine in the past but is hesitant to restart this. Discussed other treatment options such as Cellcept vs Benlysta and patient is agreeable to restarting the azathioprine. Will restart azathioprine 50mg daily. Discussed the potential side effects of the medication, including but not limited to GI upset, blood count abnormalities, increased infection, and/or allergic reaction. Continue HCQ 200mg BID. Continue routine eye exams to monitor for plaquenil toxicity. Will check routine labs next visit. Follow up in 1 month. Sooner if needed. Assessment & Plan (06/03/2020 3:43 PM CDT): Low cdai. Few swollen joints without tenderness noted on peripheral exam today. Azathioprine and prednisone stopped while hospitalized for emergent thrombectomy. Continue HCQ 200mg BID. Continue routine eye exam to monitor for plaquenil toxicity. Routine labs today. Follow up in 1 month. Sooner if needed. Seen with Dr. Sun. Assessment & Plan (05/02/2020 7:34 AM CDT): - Rheumatology consulted and following. - Per rheum recs: -agree with anticoagulation, continue HCQ 200 BID, stop Aza and prednisone. - Plain films of bilateral hands and wrists w/ bilat polyarticular osteoarthritis - TTE unremarkable - blood cultures ordered 05/02 - Rheumatology follow up scheduled 06/03. Assessment & Plan (04/28/2020 10:59 AM CDT): Multiple swollen joints with tenderness noted on peripheral exam today. Purple discoloration and numbness noted in tips of fingers in left hand that started about 4 weeks ago. No change in symptoms since starting prednisone 10mg, amlodipine 10mg, azathioprine 50mg BID, and aspirin 81mg daily after last visit. Repeat AVISE revealed a positive JULIO CESAR 1:80, CB-CAP, and anti-Ro60. Recent serologies were negative for LAC, ANCA, cold agglutinin, and cryoglobulins. Capillary refill is poor. Hx of +cardiolipin and b2g1. Patient denies history of prior DVTs or Factor V Leiden mutation. Suspect possible Raynaud's vs vasculitis vs thrombotic event. Continue prednisone 10mg daily, amlodipine 10mg daily, azathioprine 50mg BID, HCQ 200mg BID, and aspirin 81mg daily. Patient instructed to go to the ER for evaluation of possible thrombotic event as she noted abnormal sensation in her left arm preceding the skin changes. Follow up in 1 month. Sooner if needed. Seen with Dr. Sun. Assessment & Plan (04/21/2020 10:14 AM CDT): Multiple swollen joints with tenderness noted on peripheral exam today. Purple discoloration and numbness noted in tips of fingers in left hand that started about 3 weeks ago. Capillary refill is poor. Hx of +cardiolipin and b2g1 as well as Factor V Leiden mutation. Splinter hemorrhage left 3rd digit. No murmur noted on exam. No recent fevers or infection. Suspect possible Raynaud's vs vasculitis vs thrombotic event. Will start prednisone 10mg daily, amlodipine 10mg daily, and azathioprine 50mg BID. Continue HCQ 200mg BID. Will obtain appropriate serologies to further evaluate. Will also get a TTE. Follow up next week. Patient is to call our office daily with updates of her symptoms. Seen with Dr. Sun. Assessment & Plan (03/04/2020 3:34 PM CDT): Low cdai. Few swollen and tender joints noted on peripheral exam today. Has been off azathioprine since last visit 11/2019 without any worsening symptoms. Continues to deny any systemic complaints. Patient did not qualify for SLE clinical research study. Continues to do well overall with current treatment. Patient seeking medicinal marijuana card. Discussed we do not prescribe this but did provide her with a note stating her diagnosis of SLE. Continue HCQ 200mg BID. Routine labs today. Follow up in 3-4 months. Sooner if needed. Assessment & Plan (11/12/2019 8:58 AM APPLICATION COUNSELOR): Low cdai. Few swollen joints without tenderness noted on peripheral exam today. Denies any systemic complaints. Patient did not qualify for SLE clinical research study. Feels fine since she stopped cellcept and wants to stop azathioprine as she just restarted this. Because patient appears clinically stable and has not noticed any increased pain between stopping cellcept and restarting azthioprine, will stop azathioprine at this time. Continue HCQ 200mg BID. Can always consider restarting azathioprine if symptoms progress in the future. Continue routine eye exams to monitor for plaquenil toxicity. Routine labs today. Follow up in 2-3 months. Sooner if needed. Assessment & Plan (09/28/2019 8:58 AM APPLICATION COUNSELOR): High cdai. Several swollen and tender joints noted on peripheral joint exam today. Patient did not qualify for the SLE clinical research study. Wants to stop Cellcept and switch back to azathioprine as she noted improvement of her joint pain while on it in the past. Benlysta stopped 01/05/19. Will stop Cellcept and start azathioprine 50mg daily. Discussed the potential side effects of the medication, including but not limited to GI upset, blood count abnormalities, increased infection, and/or allergic reaction. Continue HCQ 200mg BID. Continue routine eye exams to monitor for plaquenil toxicity. Routine labs today. Follow up in 1 month. Sooner if needed. Assessment & Plan (07/06/2019 10:41 AM CDT): Moderate cdai. Several swollen joints with few tender. Stopped Benlysta 01/05/19. Restarted Cellcept 2 weeks after surgery without issue. Will screen for clinical research study early August once she has been on Cellcept for 8 weeks. Patient did state that she didn't notice any worsening of symptoms while off Cellcept and that she actually thought azathioprine gave her more benefit but this was stopped in the past when trying Benlysta. If she does not qualify for the study, patient wants to consider stopping Cellcept and switching back to azathioprine. Continue Cellcept 1.5gm BID and plaquenil 200mg BID. Routine labs today. Follow up in 3 months after she has been screened for the clinical research study. Sooner if needed. Assessment & Plan (04/07/2019 10:31 AM CDT): Moderate cdai. High pain score today due to her right hip pain. Scheduled for R TED 05/08/19. Few swollen or tender joints on exam today. Has been off Benlysta for 12 weeks now and continues to do okay. Patient continues to express interest in the clinical research study. Continue Cellcept 1.5gm BID and plaquenil 200mg BID. Discussed stopping Cellcept 2 weeks before and 2 weeks after her R TED. Patient will have to be back on Cellcept and/or plaquenil for 8 weeks after surgery before being able to be screened for the study. If patient worsens significantly and decides not to participate in the study, then will restart Benlysta. Routine labs today. Follow up in 3 months. Sooner if needed. Assessment & Plan (02/02/2019 10:08 AM CDT): Moderate cdai. US 08/2018 revealed significant synovitis of left wrist. Repeat radiographs looking for erosive changes did not reveal any significant findings. Last visit, decided she was interested in clinical research study due to her ongoing disease activity and needs to wash out Benlysta for 12 weeks. Has been off Benlysta for 4 weeks. Swelling noted in multiple joints on exam today. Continue Cellcept 1.5gm BID and plaquenil 200mg BID. Continue to hold Benlysta. Once off for 12 weeks, she can screen for study. If patient worsens significantly and decides not to participate in the study, then will restart Benlysta. Routine labs today. Follow up in 2 months. Sooner if needed. Assessment & Plan (01/05/2019 5:46 PM APPLICATION COUNSELOR): Moderate activity on exam. Pt had significant synovitis of L wrist on u/s in 08/28. On plaquenil and changed imuran to cellcept due to continued high activity. Now on cellcept 1gm BID. Also on benlysta sc weekly. Repeated hand xrays to look for erosive changes but other than some abnormality at the R scaphoid suggestive of prior injury, there was no significant finding. She came in for steroid inj in L wrist which was significantly helpful. However, she is still having a lot of overall lupus symptoms, which are somewhat better since last IM steroid shot. Discussed if she would be interested in clinical research study due to ongoing disease activity. Would have to wash out Benlysta for 12 weeks. Pt talked to research coordinator Joseph and is interested. We can go ahead and increase cellcept to 1.5gm BID in the meantime, will hold benlysta going forward. Once off for 12 weeks she can screen for study. If pt worsens significantly and decides not to participate then will restart benlysta. F/u 1 month. Assessment & Plan (2018 5:06 PM APPLICATION COUNSELOR): High activity on exam. Pt had significant synovitis of L wrist on u/s in 08/28. On plaquenil and changed imuran to cellcept due to continued high activity. Now on cellcept 1gm BID. Also on benlysta sc weekly. Repeated hand xrays to look for erosive changes but other than some abnormality at the R scaphoid suggestive of prior injury, there was no significant finding. She came in for steroid inj in L wrist which was significantly helpful. However, she is still having a lot of overall lupus symptoms. Will recheck labs today and offered IM triamcinolone 100mg. Pt would like to proceed. F/u 1 month Assessment & Plan (10/17/2018 11:41 AM APPLICATION COUNSELOR): High activity on exam. Pt had significant synovitis of L wrist on u/s in 08/28. On plaquenil and changed imuran to cellcept due to continued high activity. Took benlysta for 5 months and didn't feel better so she had stopped, but at the last visit Dr. Sun instructed her to resume this. Will increase cellcept to 1gm BID. Discussed the rationale for changing/increasing meds and using multi-drug regimen to try to get adequate disease control. Offered steroid inj into L wrist to help reduce activity and pt willing to proceed. Will schedule soon under u/s with Dr. Sun. Reviewed recent cbc, cmp which were ok. Repeat labs again in 2 weeks. F/u 1 month. Will also check hand xrays to evaluate for erosive disease, in which case we would add RA to her diagnosis. Discussed with Dr. Sun. Assessment & Plan (05/02/2018 3:24 PM CDT): cdai = 10 Pt had significant synovitis of L wrist on u/s. On plaquenil and azathioprine 2 tabs BID. She had a recent repeat u/s of the L hand and wrist which shows an interval increase in synovial thickening and doppler since the previous study. Has been on 5 weeks of benlysta sc and tolerating fine. Will continue and observe. Repeat u/s in 3-4 months. Labs today. F/u 3 months. Assessment & Plan (03/03/2018 12:07 PM CDT): cdai = 18 Pt had significant synovitis of L wrist on u/s. On plaquenil and azathioprine 2 tabs BID. She had a recent repeat u/s of the L hand and wrist which shows an interval increase in synovial thickening and doppler since the previous study. We discussed adding benlysta since not at goal on plaquenil and aza. She would prefer self injection since she travels frequently for work. Discussed risks, benefits, and administration. Will check insurance coverage. Check quantiferon gold today. Other labs stable. Recommend coming in for teaching visit once ready to begin. f/u 6 weeks. Assessment & Plan (01/23/2018 8:59 AM CDT): cdai = 13 Pt had significant synovitis of L wrist on u/s. On plaquenil and azathioprine 2 tabs BID. check labs today. normal tpmt. Her L thumb/wrist pain may be a combination of active synovitis, tenosynovitis (dequervains), OA of thumb. Will repeat ultrasound. Discussed may want to add benlysta in the future. F/u 3 months or sooner if worse. Assessment & Plan (10/25/2017 10:35 AM APPLICATION COUNSELOR): cdai = 11 Pt had significant synovitis of L wrist on u/s. On plaquenil and azathioprine 2 tabs BID. check labs today. normal tpmt. She continues to have some rashes and is going to derm soon. Also getting ncts for hands next week and biopsy/removal of subcutaneous nodules to upper arms, concern for lipomas vs lupus panniculitis (hx erythema and tenderness). Her L thumb/wrist pain may be a combination of active synovitis, tenosynovitis (dequervains), OA of thumb, carpal tunnel. Will repeat ultrasound. She is already scheduled for nerve studies next week. Continue wrist splints for now. Discussed may want to add benlysta in the future. F/u 3 months or sooner if worse. Assessment & Plan (07/29/2017 3:44 PM CDT): cdai = 7 Pt had significant synovitis of L wrist on u/s. On plaquenil and azathioprine 2 tabs BID. Has some nausea on the meds but she feels better overall so wants to continue. Last labs ok. check labs today. normal tpmt. She also reports 2 new subcutaneous nodules on L upper arm in the last month. She thinks they are getting smaller. Occasionally appear erythematous. Discussed lipomas vs lupus panniculitis, will go ahead and get opinion from surgeon. F/u 3 months. Assessment & Plan (05/24/2017 10:17 AM CDT): cdai = 6 Pt had significant synovitis of L wrist on u/s. On plaquenil and azathioprine 2 tabs BID. Has some nausea on the meds but she feels better overall so wants to continue. Last labs ok. check labs today. normal tpmt. f/u 2 months. Discussed if the nausea becomes intolerable we could switch to mtx or cellcept. She also reports 2 new subcutaneous nodules on L upper arm in the last month. She thinks they are getting smaller. Occasionally appear erythematous. Discussed lipomas vs lupus panniculitis, so if not improving we may need to send for biopsy. Discussed with Dr. Sun. Supraventricular tachycardia 08/22/2012 Overview (02/14/2017): SVT (supraventricular tachycardia) Assessment & Plan (2018 5:07 PM APPLICATION COUNSELOR): Hx SVT. Pt reporting palpitation episodes recently. Normal rate and rhythm on exam today. Advised f/u with cardiology Dyssomnia 02/21/2012 Overview (02/15/2017): Sleep disturbance Assessment & Plan (07/29/2017 3:51 PM CDT): Advised pt we can no longer prescribe her ambien, should discuss with pcp or may need to f/u with sleep specialist. Resolved Problems Problem Noted Date Diagnosed Date Resolved Date Mass of left wrist 02/11/2025 5 Assessment & Plan (02/11/2025 9:39 AM CDT): Mass/swelling over left dorsal wrist could suggest a cyst. Notes decreased active extension due to swelling/pain. Will get US to further evaluate. Depending on results, consider referral to ortho hand. Left wrist pain 10/13/2024 02/11/2025 Assessment & Plan (10/13/2024 8:46 AM APPLICATION COUNSELOR): Mass/swelling over left dorsal wrist could suggest a cyst. Notes decreased active extension due to swelling/pain. Could consider MRI to further evaluate. 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 0 Overview (04/28/2020): Added automatically from request for surgery [id number] Preoperative cardiovascular examination 03/31/2019 11/08/2020 Osteoarthritis of knee 02/21/201205/02 Overview (02/15/2017): DJD (degenerative joint disease) of knee Encounters Date Type Department Care Team Description 06/18/2025 Results Follow-Up [address] [phone] Rashmi Caputo PA C3 complement, C4 complement, CBC with auto differential, Additional followed-up results: 5 06/17/2025 8:30 AM CDT Office Visit [facility] [address] [place] [phone] Rashmi Caputo PA Other systemic lupus erythematosus with other organ involvement (Primary Dx); History of blood clots; High risk medications (not anticoagulants) long-term use 04/19/2025 8:22 AM CDT - 04/19/2025 11:59 PM CDT Hospital Encounter [address] [phone] Left wrist pain Discharge Disposition: Discharge to home or self care 03/31/2025 Orders Only [facility] [address] [place] [phone] Rashmi Caputo PA Left wrist pain (Primary Dx) 03/25/2025 Orders Only [facility] [address] [place] [phone] Rashmi Caputo PA from Last 3 Months Immunizations Immunization Administration Dates Next Due Influenza, Quadrivalent, Spl it, Intramuscular 07/17/2020,08/31/2018,09/23/2017 Influenza, Quadrivalent, Spl it, Preservative Free, Intramuscular 07/17/2020,08/31/2019,08/31/2018,08/30,09/30/2017 Influenza, Split 08/28/2013 Influenza, Trivalent, IM (MDV) 08/28/2014,2011 Influenza, Trivalent, Preser vative Free, Intramuscular 08/19/2016,08/16/2015 Influenza, Unspecified 08/20/2016,11/11/2014 Moderna SARS-CoV-2 Monovalen t Vaccination (12+ YRS) 12/08/2020 Pneumococcal Conjugate PCV 13 09/28/2019, 019 Pneumococcal Conjugate, Unspecified 08/28/2013 Tdap 05/24/2017 ZOSTER LIVE 08/28/2013 Surgical History Surgery Date Site/Laterality Comments TONSILLECTOMY Tonsillectomy KNEE ARTHROSCOPY Arthroscopy knee JOINT REPLACEMENT 11/11/2019 - 11/10/2020 Right total hip KNEE ARTHROSCOPY 02/09/2021 - 03/10/2021 Left ARTERIAL THROMBECTOMY 11/11/2019 - 11/10/2020 Left upper extremity Medical History Medical History Date Comments Embolism (HCC) Blood clots Lupus Anxiety Arthritis Asthma Clotting disorder Depression GERD (gastroesophageal reflux disease) Heart valve disease Family History Medical History Relation Name Comments Arthritis Father Clotting disorder Father Diabetes Father Heart disease Father Hypertension Father Anuerysm Maternal Grandfather aneurys m; Other Maternal Grandfather clots; Arthritis Mother Clotting disorder Mother Hypertension Mother Alcohol abuse Sister Arthritis Sister Blood Clot Sister blood clots; Cancer Sister Clotting disorder Sister Hypertension Sister Relation Name Status Comments Father Maternal Grandfather Mother Sister Social History Tobacco Use Types Packs/Day Years Used Date Smoking Tobacco: Never Smokeless Tobacco: Never Alcohol Use Standard Drinks/Week Comments Yes 0 (1 standard drink = 0.6 oz pur e alcohol) Comments No Sex and Gender Information Value Date Recorded Sex Assigned at Not on file Legal Sex Female 7:45 PM APPLICATION COUNSELOR Gender Identity Female 11/21/2020 9:16 AM APPLICATION COUNSELOR Sexual Orientation Choose not to disclose 2020 9:01 AM APPLICATION COUNSELOR Obstetrics History Last Filed Vital Signs Vital Sign Reading Time Taken Comments Blood Pressure 128/74 06/17/2025 8:31 AM CDT Pulse 59 06/17/2025 8:31 AM CDT Temperature 36.3 C (97.3 F) 02/26/2024 10:46 AM CDT Respiratory Rate 16 02/26/2024 10:47 AM CDT Oxygen Saturation 97% 06/17/2025 8:31 AM CDT Inhaled Oxygen Concentration - - Weight 94.8 kg (209 lb) 06/17/2025 8:31 AM CDT Height 167.6 cm (5' 6) 06/17/2025 8:31 AM CDT Body Mass Index 33.73 06/17/2025 8:31 AM CDT Plan of Treatment Health Maintenance Due Date Last Done Comments Cervical Cancer Screening 1962 Colon Cancer Screening-Colonoscopy 1962 Depression Screening 1962 Hepatitis B Screening 1980 Regular Well Visit/Exam 18-64 1980 Breast Cancer Screening-Mammogram 02/29/2016 015, 04/17/2013 Pneumococcal vaccine <65 (2 of 2 - PPSV23) 11/23/2019 09/28/2019, 2018, 08/28/2013 Zoster Vaccine (2 of 2) 10/27/2021 09/01/2021, 08/28 Covid-19 Vaccine (5 - 2023-2 5 season) 2024 08/22/2023, 02/28/2022, 09/01/2021, Additional history exists Influenza Vaccine (#1) 2025 , 07/17/2020, 07/17/2020, Additional history exists DTaP/Tdap/Td Vaccine (2 - Td or Tdap) 05/24/2027 05/24/2017 Hepatitis C Screening Completed 07/29/2017 Procedures Procedure Name Priority Date/Time Associated Diagnosis Comments ANTI-DOUBLE STRANDED DNA ANTIBODIES Routine 06/17/2025 9:14 AM CDT Other systemic lupus erythematosus with other organ involvement PROTEIN / CREATININE RATIO, URINE, RANDOM Routine 06/17/2025 9:14 AM CDT Other systemic lupus erythematosus with other organ involvement CRP (ACUTE PHASE) Routine 06/17/2025 9:1 4 AM CDT Other systemic lupus erythematosus with other organ involvement High risk medications (not anticoagulants) long-term use ERYTHROCYTE SEDIMENTATION RATE Routine 06/17/2025 9:14 AM CDT Other systemic lupus erythematosus with other organ involvement High risk medications (not anticoagulants) long-term use COMPREHENSIVE METABOLIC PANEL Routine 06/17/2025 9:14 AM CDT Other systemic lupus erythematosus with other organ involvement High risk medications (not anticoagulants) long-term use CBC WITH AUTO DIFFERENTIAL Routine 06/17/2025 9:14 AM CDT Other systemic lupus erythematosus with other organ involvement High risk medications (not anticoagulants) long-term use C4 COMPLEMENT Routine 06/17/2025 9:14 AM CDT Other systemic lupus erythematosus with other organ involvement C3 COMPLEMENT Routine 06/17/2025 9:14 AM CDT Other systemic lupus erythematosus with other organ involvement US HAND COMPLETE Schedule Routine, Read Routine (OP Routine) 04/19/2025 8:56 AM CDT Left wrist pain SCAN - RADIOLOGY/IMAGING 03/25/2025 3:47 PM CDT HEPATITIS C ANTIBODY Routine 07/29/2017 4:08 PM CDT SCREENING MAMMOGRAM Routine 02/28/2015 3 :11 PM CDT from Last 3 Months or Most Recently Relevant to Health Maintenance Results * Anti-double stranded DNA abs (06/17/2025 9:14 AM CDT) DNA (DS) ab <1 IU/mL [facility] Comment: IU/mL Interpretation < or = 4 Negative 5-9 Indeterminate > or = 10 Positive Blood 06/17/2025 9:14 AM CDT 06/17/2025 9:15 AM CDT Rashmi Caputo NE LAB BLOOD ORDERABLES Final Result Performing Organization Address [facility] de Phone Number QUEST [facility] [address] [place] [address] * (ABNORMAL) C4 complement (06/17/2025 9:14 AM CDT) Pathologist [facility] Complement component C4C 13(L) 15 - 57 mg/dL [facility] Blood 06/17/2025 9:14 AM CDT 06/17/2025 9:15 AM CDT Rashmi Caputo NE LAB BLOOD ORDERABLES Final Result Performing Organization Address [facility] de Phone Number QUEST [facility] [address] [place] [address] * (ABNORMAL) CBC with auto differential (06/17/2025 9:14 AM CDT) Pathologist [facility] WBC 4.6 3.8 - 10.8 Thousand/u L [facility] RBC, POC 4.85 3.80 - 5.10 Million/uL [facility] Hgb 14.9 11.7 - 15.5 g/dL [facility] Hct 46.0(H) 35.0 - 45.0 % [facility] MCV 94.8 80.0 - 100.0 fL [facility] MCH 30.7 27.0 - 33.0 pg [facility] MCHC 32.4 32.0 - 36.0 g/dL [facility] Comment: For adults, a slight decrease in the calculated MCHC value (in the range of 30 to 32 g/dL) is most likely not clinically significant; however, it should be interpreted with caution in correlation with other red cell parameters and the patient's clinical condition. Rdw 13.0 11.0 - 15.0 % [facility] Platelets 160 140 - 400 Thousand/u L [facility] MPV 11.0 7.5 - 12.5 fL [facility] Neutrophils, abs 3,326 1,500 - 7,800 cells/uL [facility] Lymphocytes, abs 837(L) 850 - 3,900 cells/uL [facility] Monocyte abs 336 200 - 950 cells/uL [facility] Eosinophils, abs 51 15 - 500 cells/uL [facility] Basophils, abs 51 0 - 200 cells/uL [facility] Neutrophils 72.3 % [facility] Lymphocyte pct 18.2 % [facility] Monocytes 7.3 % [facility] Eosinophils 1.1 % [facility] Basophils 1.1 % [facility] Blood 06/17/2025 9:14 AM CDT 06/17/2025 9:15 AM CDT Rashmi MIRANDA LAB BLOOD ORDERABLES Final Result [facility] [address] [place] [address] * Protein / creatinine ratio, urine, random (06/17/2025 9:14 AM CDT) Creatinine, ur 183 20 - 275 mg/dL [facility] Protein/creatin ine ratio 71 24 - 184 mg/g creat [facility] Protein/Creatin ine Ratio 0.071 0.024 - 0.184 mg/mg creat [facility] Protein, ur, quant 13 5 - 24 mg/dL [facility] Urine 06/17/2025 9:14 AM CDT 06/17/2025 9:15 AM CDT Rashmi MIRANDA LAB URINE ORDERABLES Final Result Performing Organization Address [facility] Co de Phone Number [facility] [address] [place] [address] * Erythrocyte sedimentation rate (06/17/2025 9:14 AM CDT) Erythrocyte sedimentation rate 9 < OR = 30 mm/h [facility] Blood 06/17/2025 9:14 AM CDT 06/17/2025 9:15 AM CDT Rashmi MIRANDA LAB BLOOD ORDERABLES Final Result Performing Organization Address [facility] de Phone Number [facility] [address] [place] [address] * C3 complement (06/17/2025 9:14 AM CDT) Complement component C3C 117 83 - 193 mg/dL [facility] Blood 06/17/2025 9:14 AM CDT 06/17/2025 9:15 AM CDT Rashmi MIRANDA LAB BLOOD ORDERABLES Final Result Performing Organization Address [facility] de Phone Number [facility] [address] [place] [address] * CRP (acute phase) (06/17/2025 9:14 AM CDT) C-RP <3.0 <8.0 mg/L [facility] Blood 06/17/2025 9:14 AM CDT 06/17/2025 9:15 AM CDT Rashmi MIRANDA LAB BLOOD ORDERABLES Final Result Performing Organization Address [facility] Co de Phone Number [facility] [address] [place] [address] * (ABNORMAL) Comprehensive metabolic panel (06/17/2025 9:14 AM CDT) Glucose 89 65 - 99 mg/dL [facility] Comment: Fasting reference interval BUN 13 7 - 25 mg/dL [facility] Creatinine 0.84 0.50 - 1.05 mg/dL [facility] eGFR 79 > OR = 60 mL/min/1.7 3m2 [facility] BUN/creat ratio SEE NOTE: 6 - 22 (calc) [facility] Comment: Not Reported: BUN and Creatinine are within reference range. Sodium 141 135 - 146 mmol/L [facility] Potassium, pl 4.4 3.5 - 5.3 mmol/L [facility] Chloride 103 98 - 110 mmol/L [facility] CO2 30 20 - 32 mmol/L [facility] Calcium 9.4 8.6 - 10.4 mg/dL [facility] Protein, sr 6.5 6.1 - 8.1 g/dL [facility] Albumin 4.2 3.6 - 5.1 g/dL [facility] GLOBULIN 2.3 1.9 - 3.7 g/dL (calc) [facility] Alb/glob ratio 1.8 1.0 - 2.5 (calc) [facility] Bilirubin, total 0.9 0.2 - 1.2 mg/dL [facility] Alk phos 41 37 - 153 U/L [facility] AST 40(H) 10 - 35 U/L [facility] ALT (SGPT) 33(H) 6 - 29 U/L [facility] Blood 06/17/2025 9:14 AM CDT 06/17/2025 9:15 AM CDT us Rashmi MIRANDA LAB BLOOD ORDERABLES Final Result [facility] [address] [place] [address] * US Hand Complete (04/19/2025 8:56 AM CDT) Anatomical Region Laterality Modality Hand N/A Ultrasound Rashmi MIRANDA IMG US PROCEDURES Fin al Result * SCAN - RADIOLOGY/IMAGING (03/25/2025 3:47 PM CDT) Anatomical Region Laterality Modality Other Rashmi MIRANDA Final Result * Hepatitis C antibody (07/29/2017 4:08 PM CDT) Hep C Ab NON-REACTI VE NON-REACTI VE [facility] [place] SIGNAL TO CUT-OFF 0.01 <1.00 [facility] [place] 07/29/2017 4:08 PM CDT 07/29/2017 4:10 PM CDT Narrative Resulting Agency Comment Performing Organization Information: Site ID: [place] Name: [facility] Address: [id number] [place] [address] [place] [address] Director: Marko Fishman D.O., MPH Marleni MIRANDA LAB MICROBIOLOGY - GENER AL ORDERABLES Final Result [facility] [place], [place] * Screening Mammogram (02/28/2015 3:11 PM CDT) Anatomical Region Laterality Modality Breast N/A Mammography 02/28/2015 3:11 PM CDT Narrative 03/02/2015 10:01 AM CDT KAROLINE ASHLEY M.D. FINAL REPORT The radiology attending physician has personally reviewed this study, and has reviewed and/or edited this written report and agrees with it. ACC# Date Time Exam [id number] Feb 28, 2015 15:11:00 HBC [id number] Bilateral Screen w Jose C Technologist(s): Lima Corrales; ; EXAMINATION: Mammogram Technique: Bilateral Bilateral Full-Field Digital Screening Mammogram and Digital Breast Tomosynthesis were performed. Views obtained: . Computer Aided Detection of the 2D images was performed with [employer], [employer] 1.3 version 9.3. Mammogram Findings: The present examination has been compared to prior imaging studies performed at [facility] on 04/17/2013, 05/30/2009 and 05/28/2008. There are scattered fibroglandular densities. There is no suspicious abnormality in either breast. IMPRESSION: Annual screening mammography is recommended. OVERALL FINAL ASSESSMENT: BI-RADS CATEGORY 1: Negative. Requested By: Dictated By: KAROLINE ASHLEY M.D. on Mar 02 2015 10:01A This document has been electronically signed by: KAROLINE ASHLEY M.D. on Mar 02 2015 10:01A [id number] Procedure Note Provider, MD Davin - 03/12/2017 KAROLINE ASHLEY M.D. FINAL REPORT The radiology attending physician has personally reviewed this study, and has reviewed and/or edited this written report and agrees with it. ACC# Date Time Exam [id number] Feb 28, 2015 15:11:00 HBC [id number] Bilateral Screen w Jose C Technologist(s): Lima Corrales; ; EXAMINATION: Mammogram Technique: Bilateral Bilateral Full-Field Digital Screening Mammogram and Digital Breast Tomosynthesis were performed. Views obtained: . Computer Aided Detection of the 2D images was performed with [employer], [employer] 1.3 version9.3. Mammogram Findings: The present examination has been compared to prior imaging studies performed at [facility] on04/17/2013, 05/30/2009 and 05/28/2008. There are scattered fibroglandular densities. There is no suspicious abnormality in either breast. IMPRESSION: Annual screening mammography is recommended. OVERALL FINAL ASSESSMENT: BI-RADS CATEGORY 1: Negative. Requested By: Dictated By: KAROLINE ASHLEY M.D. on Mar 02 2015 10:01A This document has been electronically signed by: KAROLINE ASHLEY M.D. on Mar 02 2015 10:01A [id number] us Historical Provider MD [facility] PROCED[facility] Zhanna l Result from Last 3 Months or Most Recently Relevant to Health Maintenance Insurance ANTHEM TRADITIONAL ANTHEM TRADITIONAL ANTHEM TRADITIONAL [facility] Advance Directives For more information, please contact: [phone] * Full Code (Latest Code Status on File) Date Activated Date Inactivated Comments 04/29/2020 2:40 AM 05/02/2020 6:47 PM * Full Code Date Activated Date Inactivated Comments 04/29/2020 2:40 AM 04/29/2020 2:40 AM Care Teams Development Writer Relationship Specialty Start Date End Date Vianney Carpenter PA [address] [place] [id number] PCP - General Physician Cyber Transport Systems Specialist 06/17/25 Lucien Simon MD Surgeon Vascular Surgery 05/02/20 Ira Leigh MD [address] [place], [place] [id number] Medical Oncologist/Automatic Packer Operator Hematology and Oncology 12/21/20 Kennedy Lynch MD [address] [place] [address] Consulting Physician Rheumatology 02/10/24 RUTH Urias [address], [place] [address] Physician Cyber Transport Systems Specialist Peoplesoft Programmer 02/10/24
--- OUTSIDE RECORDS SUMMARY | 2025-06-19 13:10 | XMS_ITS | Encounter Summary ---
Author Organization [facility] Address 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
--- OUTSIDE RECORDS SUMMARY | 2025-06-19 13:10 | XMS_ITS | Encounter Summary ---
Author Organization [facility] Address [address] [place] [address] Care Team Providers Care Services Executive Name Role Phone Unavailable Primary Care Provider Unavailabl e Encounter Details Date Type Department Care Team (Late st Contact Info) Description 08/03/1999 Outpatient Historical [facility] [place] Internal Medicine [address] [address] Marlen Newman MD [address] [place] [address] Social History Tobacco Use Types Packs/Day Years Used Date Smoking Tobacco: Never Assessed Comments Unknown Sex and Gender Information Value Date Recorded Sex Assigned at Not on file Legal Sex Female 3:49 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
--- OUTSIDE RECORDS SUMMARY | 2025-06-19 13:10 | XMS_ITS | Encounter Summary ---
Author Organization [facility] Address [address] [place] [address] Phone Care Team Providers Care Sprinkler Irrigation Equipment Mechanic Name Role Phone Lucien Simon MD Unavailable [phone] Ira Leigh MD Unavailable [phone] Kennedy Lynch MD Unavailable [phone] Vianney Carpenter Primary Care Pr ovider Encounter Details Date Type Department Care Team (Late st Contact Info) Description 06/18/2025 Results Follow-Up [facility] [address] [place] [address] Rashmi Caputo PA [address] [place] [address] C3 complement, C4 complement, CBC with auto differential, Additional followed-up results: 5 Social History Tobacco Use Types Packs/Day Years Used Date Smoking Tobacco: Never Smokeless Tobacco: Never Alcohol Use Standard Drinks/Week Comments Yes 0 (1 standard drink = 0.6 oz pur e alcohol) Comments No Sex and Gender Information Value Date Recorded Sex Assigned at Not on file Legal Sex Female 7:45 PM PODIATRIC ASSISTANT Gender Identity Female 11/21/2020 9:16 AM PODIATRIC ASSISTANT Sexual Orientation Choose not to disclose 2020 9:01 AM PODIATRIC ASSISTANT documented as of this encounter Plan of Treatment Scheduled Orders Name Type Priority Associated Diagnoses Orde r Schedule Hepatic function panel Lab Routine Elevated LFTs Expected: 07/02/2025, Expires: 06/18/2026 documented as of this encounter Visit Diagnoses Diagnosis Elevated LFTs- Primary Other abnormal blood chemistry documented in this encounter Care Teams Sprinkler Irrigation Equipment Mechanic Relationship Specialty Start Date End Date Vianney Carpenter PA [address] [place], [place] [id number] PCP - General Physician Talent Acquisition Lead 06/17/25 Lucien Simon MD Surgeon Vascular Surgery 05/02/20 Ira Leigh MD [address] [place] [address] Medical Oncologist/First Coat Sander Hematology and Oncology 12/21/20 Kennedy Lynch MD [address] [place] [address] Consulting Physician Rheumatology 02/10/24 RUTH Urias [address], [place] [address] Physician Talent Acquisition Lead Roof Truss Machine Tender 02/10/24 documented as of this encounter
--- OUTSIDE RECORDS SUMMARY | 2025-06-19 13:10 | XMS_ITS | Encounter Summary ---
Author Organization [facility] Address [address] [place] [address] Care Team Providers Care Gas Tester Name Role Phone Unavailable Primary Care Provider Unavailabl e Encounter Details Date Type Department Care Team (Late st Contact Info) Description 11/08/1999 Outpatient Historical [facility] Anson Hernandez MD [address] [place] [address] [place] [address] Social History Tobacco Use Types Packs/Day Years Used Date Smoking Tobacco: Never Assessed Comments Unknown Sex and Gender Information Value Date Recorded Sex Assigned at Not on file Legal Sex Female 3:49 AM COMPOUND WORKER Gender Identity Not on file Sexual Orientation Not on file documented as of this encounter Plan of Treatment Not on file documented as of this encounter Visit Diagnoses Not on filedocumented in this encounter
--- OUTSIDE RECORDS SUMMARY | 2025-06-19 13:10 | XMS_ITS | Encounter Summary ---
Author Organization [facility] Address [address] [place] [address] Care Team Providers Care Thread Roller Name Role Phone Unavailable Primary Care Provider Unavailabl e Encounter Details Date Type Department Care Team (Late st Contact Info) Description 04/10/2000 Outpatient Historical [facility] Anson Hernandez MD [address] [place] [address] [place] [address] Social History Tobacco Use Types Packs/Day Years Used Date Smoking Tobacco: Never Assessed Comments Unknown Sex and Gender Information Value Date Recorded Sex Assigned at Not on file Legal Sex Female 3:49 AM PAVER OPERATOR Gender Identity Not on file Sexual Orientation Not on file documented as of this encounter Plan of Treatment Not on file documented as of this encounter Visit Diagnoses Not on filedocumented in this encounter
--- OUTSIDE RECORDS SUMMARY | 2025-06-19 13:10 | XMS_ITS | Encounter Summary ---
Author Organization [facility] Address [address] [place] [address] Care Team Providers Care Sales Development Executive Name Role Phone Unavailable Primary Care Provider Unavailabl e Encounter Details Date Type Department Care Team (Late st Contact Info) Description 10/28/1998 Outpatient Historical [facility] Internal Medicine [address] [address] Nadja Person Social History Tobacco Use Types Packs/Day Years Used Date Smoking Tobacco: Never Assessed Comments Unknown Sex and Gender Information Value Date Recorded Sex Assigned at Not on file Legal Sex Female 3:49 AM MOTION PICTURE COMMENTATOR Gender Identity Not on file Sexual Orientation Not on file documented as of this encounter Plan of Treatment Not on file documented as of this encounter Visit Diagnoses Not on filedocumented in this encounter
--- OUTSIDE RECORDS SUMMARY | 2025-06-19 13:10 | XMS_ITS | Encounter Summary ---
Author Organization [facility] Address [address] [place] [address] Phone Care Team Providers Care Schedule Maker Name Role Phone Vianney Carpenter Primary Care Pr ovider Dino BRYAN MD, Lucien Riggs Unavailable [phone] Lucien Simon MD Unavailable [phone] Ira Leigh MD Unavailable [phone] Kennedy Lynch MD Unavailable [phone] Vianney Carpenter Primary Care Pr ovider Encounter Details Date Type Department Care Team (Latest Contact Info) Description 08/14/2023 Orders Only [facility] Scanning, Provider Social History Tobacco Use Types Packs/Day Years Used Date Smoking Tobacco: Never Smokeless Tobacco: Never Alcohol Use Standard Drinks/Week Comments Yes 0 (1 standard drink = 0.6 oz pur e alcohol) Comments No Sex and Gender Information Value Date Recorded Sex Assigned at Not on file Legal Sex Female 7:45 PM LABORER BROODER FARM Gender Identity Female 11/21/2020 9:16 AM LABORER BROODER FARM Sexual Orientation Choose not to disclose 2020 9:01 AM LABORER BROODER FARM documented as of this encounter Plan of Treatment Not on file documented as of this encounter Procedures Procedure Name Priority Date/Time Associated Diagnosis Comments SCAN - RADIOLOGY/IMAGING 08/14/2023 documented in this encounter Results * SCAN - RADIOLOGY/IMAGING (08/14/2023) Anatomical Region Laterality Modality Other us Provider Scanning Final Result documented in this encounter Visit Diagnoses Not on filedocumented in this encounter Care Teams Schedule Maker Relationship Specialty Start Date End Date Vianney Carpenter PA PCP - General 02/08/17 06/16/25 Vianney Carpenter PA [address] [place] [address] PCP - General Physician Estate And Trust Tax Principal 06/17/25 Lucien Sun III, MD [address] [place] [address] Rheumatology 10/09/17 02/09/24 Lucien Simon MD [address] [place] [address] Surgeon Vascular Surgery 05/02/20 Ira Leigh MD [address] [place] [address] Medical Oncologist/Steamtable Worker Hematology and Oncology 12/21/20 Kennedy Lynch MD [address] [place] [address] Consulting Physician Rheumatology 02/10/24 RUTH Urias [address], [place] [address] Physician Estate And Trust Tax Principal Rice Drier 02/10/24 documented as of this encounter
--- OUTSIDE RECORDS SUMMARY | 2025-06-19 13:10 | XMS_ITS | Encounter Summary ---
Author Organization [facility] Address [address] [place] [address] Care Team Providers Care Interpreter Name Role Phone Unavailable Primary Care Provider Unavailabl e Encounter Details Date Type Department Care Team (Late st Contact Info) Description 12/02/1999 Outpatient Historical [facility] Anson Hernandez MD [address] [place] [address] [place] [address] Social History Tobacco Use Types Packs/Day Years Used Date Smoking Tobacco: Never Assessed Comments Unknown Sex and Gender Information Value Date Recorded Sex Assigned at Not on file Legal Sex Female 3:49 AM MICRO COMPUTER DATA PROCESSOR Gender Identity Not on file Sexual Orientation Not on file documented as of this encounter Plan of Treatment Not on file documented as of this encounter Visit Diagnoses Not on filedocumented in this encounter
--- OUTSIDE RECORDS SUMMARY | 2025-06-19 13:10 | XMS_ITS | Encounter Summary ---
Author Organization [facility] Address [address] [place] [address] Care Team Providers Care Busboy Name Role Phone Unavailable Primary Care Provider Unavailabl e Encounter Details Date Type Department Care Team (Late st Contact Info) Description 03/04/2000 Outpatient Historical [facility] Kenyetta Meier Social History Tobacco Use Types Packs/Day Years Used Date Smoking Tobacco: Never Assessed Comments Unknown Sex and Gender Information Value Date Recorded Sex Assigned at Not on file Legal Sex Female 3:49 AM SELF PROPELLED MINING MACHINE OPERATOR Gender Identity Not on file Sexual Orientation Not on file documented as of this encounter Plan of Treatment Not on file documented as of this encounter Visit Diagnoses Not on filedocumented in this encounter
--- OUTSIDE RECORDS SUMMARY | 2025-06-19 13:10 | XMS_ITS | Encounter Summary ---
Author Organization [facility] Address [address] [place] [address] Care Team Providers Care Baking Assistant Name Role Phone Unavailable Primary Care Provider Unavailabl e Encounter Details Date Type Department Care Team (Late st Contact Info) Description 08/03/1999 Outpatient Historical [facility] Internal Medicine [address] [address] Marlen Newman MD [address] [place] [address] Social History Tobacco Use Types Packs/Day Years Used Date Smoking Tobacco: Never Assessed Comments Unknown Sex and Gender Information Value Date Recorded Sex Assigned at Not on file Legal Sex Female 3:49 AM BALANCE WHEEL HAND FILER Gender Identity Not on file Sexual Orientation Not on file documented as of this encounter Plan of Treatment Not on file documented as of this encounter Visit Diagnoses Not on filedocumented in this encounter
--- OUTSIDE RECORDS SUMMARY | 2025-06-19 13:10 | XMS_ITS | Encounter Summary ---
Author Organization [facility] Address [address] [place] [address] Care Team Providers Care Garden Implement Mechanic Name Role Phone Unavailable Primary Care Provider Unavailabl e Encounter Details Date Type Department Care Team (Late st Contact Info) Description 10/24/1999 Outpatient Historical [facility] Internal Medicine [address] [address] Marlen Newman MD [address] [place] [address] Social History Tobacco Use Types Packs/Day Years Used Date Smoking Tobacco: Never Assessed Comments Unknown Sex and Gender Information Value Date Recorded Sex Assigned at Not on file Legal Sex Female 3:49 AM GRAIN LOADER Gender Identity Not on file Sexual Orientation Not on file documented as of this encounter Plan of Treatment Not on file documented as of this encounter Visit Diagnoses Not on filedocumented in this encounter
--- OUTSIDE RECORDS SUMMARY | 2025-06-19 13:10 | XMS_ITS | Encounter Summary ---
Author Organization [facility] Address [address] [place] [address] Care Team Providers Care Client Services Administrator Name Role Phone Unavailable Primary Care Provider Unavailabl e Encounter Details Date Type Department Care Team (Late st Contact Info) Description 03/04/2000 Outpatient Historical [facility] Anson Hernandez MD [address] [place] [address] [place] [address] Social History Tobacco Use Types Packs/Day Years Used Date Smoking Tobacco: Never Assessed Comments Unknown Sex and Gender Information Value Date Recorded Sex Assigned at Not on file Legal Sex Female 3:49 AM DIMMER BOARD OPERATOR Gender Identity Not on file Sexual Orientation Not on file documented as of this encounter Plan of Treatment Not on file documented as of this encounter Visit Diagnoses Not on filedocumented in this encounter
[2025-06-19 13:14] VITALS: BP 112/63; PULSE 66; RESP 18; TEMP 36.9; O2SAT 98
--- NOTE | 2025-06-19 14:02 | ED.LOWEXIN ---
HPI - Extremity Injury (Lower) General Chief Complaint: Extremity Injury, Lower <Abel Mccoy APRN - Last Filed: 06/19/25 16:53> Stated Complaint: R ANKLE INJURY <Abel Mccoy APRN - Last Filed: 06/19/25 16:53> Time Seen by Provider: 06/19/25 13:55 <Abel Mccoy APRN - Last Filed: 06/19/25 16:53> Source: patient, family and RN notes reviewed <Abel Mccoy APRN - Last Filed: 06/19/25 16:53> Mode of arrival: ambulatory <Abel Mccoy APRN - Last Filed: 06/19/25 16:53> Limitations: no limitations <Abel Mccoy APRN - Last Filed: 06/19/25 16:53> History of Present Illness HPI Narrative: 64 y/o WF, w/ PMH of lupus and DVTs, in the ED for c/o right ankle pain s/p twisting it at 1000 today when hiking. Pt states she stepped into a hole and twisted it inward. Pt states walking and bearing weight on the foot/ankle causes sever pain. Pt has taken no OTC medication for pain. 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 Pt denies loss of sensation to the affected extremity and inability to move. Pt denies any other complaints or trauma at this time. <Abel Mccoy APRN - Last Filed: 06/19/25 16:53> Related Data Home Medications: Home Medications ?Medication ?Instructions ?Recorded ?Confirmed ?Last Taken ?Type atenolol 25 mg tablet 25 mg PO DAILY 02/05/22 09/13/23 09/17/23 History cholecalciferol (vitamin D3) 50 50 mcg PO DAILY 02/05/22 09/13/23 09/17/23 History mcg (2,000 unit) tablet (Vitamin D3) duloxetine 60 mg capsule,delayed 60 mg PO DAILY 02/05/22 09/13/23 09/17/23 History release hydroxychloroquine 200 mg tablet 200 mg PO BID 02/05/22 09/13/23 09/17/23 History vitamin B complex 1 tablet PO DAILY 02/05/22 09/13/23 09/17/23 History zolpidem 12.5 mg tablet,extended 12.5 mg PO HS 02/05/22 09/13/23 09/17/23 History release,multiphase simvastatin 20 mg tablet 20 mg PO DAILY 07/21/22 09/13/23 09/17/23 History apixaban 5 mg tablet (Eliquis) 5 mg PO BID 09/13/23 09/13/23 09/15/23 History azathioprine 50 mg tablet 50 mg PO QPM 09/13/23 09/13/23 09/17/23 History azathioprine 50 mg tablet 100 mg PO QAM 09/13/23 09/13/23 09/17/23 History enoxaparin 100 mg/mL subcutaneous 100 mg subcut DAILY 09/18/23 09/18/23 09/17/23 History syringe <Abel Mccoy APRN - Last Filed: 06/19/25 16:53> Allergies/Adverse Reactions: Allergies Allergy/AdvReac Type Severity Reaction Status Date / Time No Known Allergies Allergy Verified 06/19/25 13:07 <Abel Mccoy APRN - Last Filed: 06/19/25 16:53> Review of Systems Review of Systems: All systems reviewed & are unremarkable except as noted in HPI and below <Abel Mccoy APRN - Last Filed: 06/19/25 16:53> PMFSH Past Medical History Medical History: Medical History Asthma Hypertension Systemic lupus erythematosus Irregular heart beat <Abel Mccoy APRN - Last Filed: 06/19/25 16:53> Social History Social History: Social History Smoking status: Never smoker Alcohol intake: current Alcohol use details: 2-3 drinks monthly Substance use: never Substance use type: does not use Living arrangements: with family Spiritual care concerns: No <Abel Mccoy APRN - Last Filed: 06/19/25 16:53> Exam Narrative: GENERAL: Well-appearing, well-nourished, and in no acute distress. HEAD: Normocephalic, atraumatic. EYES: PERRLA and EOMI. ENT: Nares clear, no rhinorrhea or epistaxis. Mucous membranes moist. NECK: Supple. CHEST: Clear to auscultation. No respiratory distress. HEART: Regular rate and rhythm. No murmur heard. Normal peripheral pulses. ABDOMEN: Soft, nontender, nondistended, normal active bowel sounds. EXTREMITIES: Normal range of motion. Edema noted to lateral ankle, CSM function intact to affected extremity. Pain with all ROM, worse with pronation and dorsal flexion. Slight pain w/ palpation of the medial ankle. No midfoot pain on palpation, negative Hanna test. SKIN: Warm, dry, no rash. on palpation, negative Hanna test NEURO: No focal deficits. Alert and oriented x3. PSYCH: Normal mood and affect. <Abel Mccoy APRN - Last Filed: 06/19/25 16:53> Course FINE ARTS INSTRUCTOR/PA Physician Supervision For this patient encounter, I reviewed the FINE ARTS INSTRUCTOR or PA documentation, treatment plan, and medical decision making; and I had [id number] time with this patient. APPEARANCE: Well appearing, no pain, no distress, well-nourished. HEAD: normocephalic, atraumatic. EYES: PERRLA/EOMI, conjunctivae clear. NOSE: Normal no drainage MUSCULOSKELETAL: Tenderness to both medial and lateral malleolus with greater tenderness on the lateral NEURO: Alert. Cranial nerves II through XII intact. Good gait. Good coordination SKIN: Warm, dry. Normal Color <Vishal Lopez MD - Last Filed: 06/19/25 18:16> Vital Signs Vital signs: Vital Signs Temperature 98.4 F 06/19/25 13:14 Pulse Rate 66 06/19/25 13:14 Respiratory Rate 18 06/19/25 13:14 Blood Pressure 112/63 06/19/25 13:14 Pulse Oximetry 98 06/19/25 13:14 Oxygen Delivery Room Air 06/19/25 13:14 Temperature 98.4 F 06/19/25 13:14 Pulse Rate 62 06/19/25 16:00 Respiratory Rate 16 06/19/25 16:00 Blood Pressure 115/75 06/19/25 16:00 Pulse Oximetry 98 06/19/25 16:00 Oxygen Delivery Room Air 06/19/25 13:14 <Abel Mccoy APRN - Last Filed: 06/19/25 16:53> Vital Signs Temperature 98.4 F 06/19/25 13:14 Pulse Rate 66 06/19/25 13:14 Respiratory Rate 18 06/19/25 13:14 Blood Pressure 112/63 06/19/25 13:14 Pulse Oximetry 98 06/19/25 13:14 Oxygen Delivery Room Air 06/19/25 13:14 Temperature 98.4 F 06/19/25 13:14 Pulse Rate 62 06/19/25 16:00 Respiratory Rate 16 06/19/25 16:00 Blood Pressure 115/75 06/19/25 16:00 Pulse Oximetry 98 06/19/25 16:00 Oxygen Delivery Room Air 06/19/25 13:14 <Vishal Lopez MD - Last Filed: 06/19/25 18:16> MDM - Extremity Injury (Lower) MDM Narrative Medical decision making narrative: My Plan Labs Ordered: None Imaging Ordered: right ankle and foot xray, CT right ankle Medications Ordered: Tylenol 1G PO, ice in place, and right lower extremity elevated Results: see radiologist read below Diagnosis: Right lateral malleolus fx Risks: HEART score, PECARN score, CURB-65 score Consults: Ortho - Dr Dominique; suggested CT right ankle, posterior splint to right LE and f/u on Saturday with Dr Dominique Discussed with Dr. Thayer, ER provider, and Dr. Sebastian, ortho on-call provider, regarding pt treatment course. Will obtain CT of right ankle in addition to obtained x-rays. Patient will be released with posterior splint and follow-up with orthopedics on Saturday. CT shows no significant changes from x-ray results. Will put patient in a posterior splint and released to home. Patient to contact Ortho for follow-up Saturday. <Abel Mccoy APRN - Last Filed: 06/19/25 16:53> Differential Diagnosis Differential diagnosis: Likely ankle sprain and strain and ankle fracture <Abel Mccoy APRN - Last Filed: 06/19/25 16:53> Medical Records Attestation: I reviewed the patient's medical records. <Abel Mccoy APRN - Last Filed: 06/19/25 16:53> Imaging Data Radiologist's impression: ITS Impressions Ankle X-Ray 06/19/25 14:03 IMPRESSION: Curvilinear displaced fragment adjacent to the lateral aspect of the tip of the lateral malleolus, periventricular chronic fracture fragment. ADDENDUM: 06/19/25 1457 The impression contains a voice recognition error and should read as follows, Curvilinear displaced fragment adjacent to the lateral aspect of the tip of lateral malleolus, MAY REPRESENT ACUTE OR chronic fracture fragment. Foot X-Ray 06/19/25 14:03 IMPRESSION: Curvilinear displaced fragment adjacent to the lateral aspect of the tip of the lateral malleolus, periventricular chronic fracture fragment. ADDENDUM: 06/19/25 1457 The impression contains a voice recognition error and should read as follows, Curvilinear displaced fragment adjacent to the lateral aspect of the tip of lateral malleolus, MAY REPRESENT ACUTE OR chronic fracture fragment. Ankle CT 06/19/25 14:53 IMPRESSION: Ossific fragments adjacent to the tip of the lateral malleolus, possibly representing acute and chronic avulsion fractures. Correlate for pain/tenderness. ITS Impressions Ankle X-Ray 06/19/25 14:03 IMPRESSION: Curvilinear displaced fragment adjacent to the lateral aspect of the tip of the lateral malleolus, periventricular chronic fracture fragment. Foot X-Ray 06/19/25 14:03 IMPRESSION: Curvilinear displaced fragment adjacent to the lateral aspect of the tip of the lateral malleolus, periventricular chronic fracture fragment. <Abel Mccoy APRN - Last Filed: 06/19/25 16:53> Discharge Plan Discharge Clinical Impression: Right malleolar fracture Qualifiers: Encounter type: initial encounter Fracture type: closed Qualified Code(s): S82.891A - Other fracture of right lower leg, initial encounter for closed fracture <Abel Mccoy APRN - Last Filed: 06/19/25 16:53> Patient Disposition: Home <Abel Mccoy APRN - Last Filed: 06/19/25 16:53> Condition: Stable <Abel Mccoy APRN - Last Filed: 06/19/25 16:53> Instructions: Antibiotic Form, Ankle Fracture (ED) <Abel Mccoy APRN - Last Filed: 06/19/25 16:53> Additional Instructions: Please follow-up with Dr Dominique Saturday am by phone for appt. Continue splint wear and crutch use until further directed by ortho doctor. You may use OTC Tylenol for pain control, no more than 4000mg a day. Continue rest, ice, elevation, and splint usage. Please return to the ER with any worsening symptoms. ?Follow-up with primary care provider as soon as possible. ?Take all medications as prescribed, including regularly scheduled medications. <Abel Mccoy APRN - Last Filed: 06/19/25 16:53> Patient Language: Danish <Abel Mccoy APRN - Last Filed: 06/19/25 16:53> Prescriptions: No Action azathioprine 50 mg tablet 100 mg PO QAM azathioprine 50 mg tablet 50 mg PO QPM Eliquis 5 mg Tablet 5 mg PO BID enoxaparin 100 mg/mL syringe 100 mg subcut DAILY pantoprazole 40 mg tablet,delayed release (DR/EC) 40 mg PO QAM Qty: 30 5RF atenolol 25 mg tablet 25 mg PO DAILY hydroxychloroquine 200 mg tablet 200 mg PO BID duloxetine 60 mg capsule,delayed release(DR/EC) 60 mg PO DAILY zolpidem 12.5 mg tablet,ext release multiphase 12.5 mg PO HS vitamin B complex Tablet 1 tablet PO DAILY cholecalciferol (vitamin D3) [Vitamin D3] 50 mcg (2,000 unit) Tablet 50 mcg PO DAILY simvastatin 20 mg tablet 20 mg PO DAILY <Abel Mccoy, BUCKLE AND BUTTON MAKER - Last Filed: 06/19/25 16:53> Follow-up/Referrals: Jayden,ABBEY Faith [Primary Care Provider] - Tex Dominique MD [Physician] - 2 Days <Abel Mccoy, BUCKLE AND BUTTON MAKER - Last Filed: 06/19/25 16:53>
--- OUTSIDE RECORDS SUMMARY | 2025-06-19 14:05 | XMS_ITS | Encounter Summary ---
Author Organization [facility] Address 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
--- OUTSIDE RECORDS SUMMARY | 2025-06-19 14:05 | XMS_ITS | Encounter Summary ---
Author Organization [employer] Address 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
--- OUTSIDE RECORDS SUMMARY | 2025-06-19 14:05 | XMS_ITS | Encounter Summary ---
Author Organization [facility] Address [address] [place] [address] Phone Care Team Providers Care Site Leasing Agent Name Role Phone Lucien Simon MD Unavailable [phone] Ira Leigh MD Unavailable [phone] Kennedy Lynch MD Unavailable [phone] Vianney Carpenter Primary Care Pr ovider Encounter Details Date Type Department Care Team (Late st Contact Info) Description 06/18/2025 Results Follow-Up [facility] [address] [place] [address] Rashmi Caputo PA [address] [place] [address] C3 complement, C4 complement, CBC [...] on file Legal Sex Female 7:45 PM TRANSIT AUTHORITY POLICE OFFICER Gender Identity Female 11/21/2020 9:16 AM TRANSIT AUTHORITY POLICE OFFICER Sexual Orientation Choose not to disclose 2020 9:01 AM TRANSIT AUTHORITY POLICE OFFICER documented as of this encounter Plan of Treatment Scheduled Orders Name Type Priority Associated Diagnoses Orde r Schedule Hepatic function panel Lab Routine Elevated LFTs Expected: 07/02/2025, Expires: 06/18/2026 documented as of this encounter Visit Diagnoses Diagnosis Elevated LFTs- Primary Other abnormal blood chemistry documented in this encounter Care Teams Site Leasing Agent Relationship Specialty Start Date End Date Vianney Carpenter PA [address] [place], [place] [id number] PCP - General Physician Brake Tester 06/17/25 Lucien Simon MD Surgeon Vascular Surgery 05/02/20 Ira Leigh MD [address] [place] [address] Medical Oncologist/Staffing Administrator Hematology and Oncology 12/21/20 Kennedy Lynch MD [address] [place] [address] Consulting Physician Rheumatology 02/10/24 RUTH Urias [address], [place] [address] Physician Brake Tester Stage Hand 02/10/24 documented as of this encounter
--- OUTSIDE RECORDS SUMMARY | 2025-06-19 14:05 | XMS_ITS | Encounter Summary ---
Author Organization [employer] Address 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
--- OUTSIDE RECORDS SUMMARY | 2025-06-19 14:05 | XMS_ITS | Encounter Summary ---
Author Organization [facility] Address 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
--- OUTSIDE RECORDS SUMMARY | 2025-06-19 14:05 | XMS_ITS | Encounter Summary ---
Author Organization [employer] Address 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
--- OUTSIDE RECORDS SUMMARY | 2025-06-19 14:05 | XMS_ITS | Encounter Summary ---
Author Organization [facility] Address [address] [place] [address] Care Team Providers Care Draughtsman Name Role Phone Unavailable Primary Care Provider Unavailabl e Encounter Details Date Type Department Care Team (Late st Contact Info) Description 01/23/1999 Outpatient Historical [facility] Internal Medicine [address] [address] Nadja Person Social History Tobacco Use Types Packs/Day Years Used Date Smoking Tobacco: Never Assessed Comments Unknown Sex and Gender Information Value Date Recorded Sex Assigned at Not on file Legal Sex Female 3:49 AM CORPORATE HEALTH CONSULTANT Gender Identity Not on file Sexual Orientation Not on file documented as of this encounter Plan of Treatment Not on file documented as of this encounter Visit Diagnoses Not on filedocumented in this encounter
--- OUTSIDE RECORDS SUMMARY | 2025-06-19 14:05 | XMS_ITS | Encounter Summary ---
Author Organization [facility] Address 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
--- OUTSIDE RECORDS SUMMARY | 2025-06-19 14:05 | XMS_ITS | Encounter Summary ---
Author Organization [employer] Address 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
--- OUTSIDE RECORDS SUMMARY | 2025-06-19 14:05 | XMS_ITS | Encounter Summary ---
Author Organization [facility] Address [address] [place] [address] Care Team Providers Care Bender Machine Name Role Phone Unavailable Primary Care Provider Unavailabl e Encounter Details Date Type Department Care Team (Late st Contact Info) Description 10/28/1998 Outpatient Historical [facility] Internal Medicine [address] [address] Nadja Person Social History Tobacco Use Types Packs/Day Years Used Date Smoking Tobacco: Never Assessed Comments Unknown Sex and Gender Information Value Date Recorded Sex Assigned at Not on file Legal Sex Female 3:49 AM FULL TIME PARAMEDIC Gender Identity Not on file Sexual Orientation Not on file documented as of this encounter Plan of Treatment Not on file documented as of this encounter Visit Diagnoses Not on filedocumented in this encounter
--- OUTSIDE RECORDS SUMMARY | 2025-06-19 14:05 | XMS_ITS | Encounter Summary ---
Author Organization [employer] Address [address] [place] [address] Care Team Providers Care Drawer Liner Name Role Phone Unavailable Primary Care Provider Unavailabl e Encounter Details Date Type Department Care Team (Late st Contact Info) Description 12/02/1999 Outpatient Historical HIS [facility] Anson Hernandez MD [address] [place] [address] Social History Tobacco Use Types Packs/Day Years Used Date Smoking Tobacco: Never Assessed Comments Unknown Sex and Gender Information Value Date Recorded Sex Assigned at Not on file Legal Sex Female 3:49 AM FUNERAL ATTENDANT Gender Identity Not on file Sexual Orientation Not on file documented as of this encounter Plan of Treatment Not on file documented as of this encounter Visit Diagnoses Not on filedocumented in this encounter
--- OUTSIDE RECORDS SUMMARY | 2025-06-19 14:05 | XMS_ITS | Clinical Summary ---
Author Organization [facility] Address [address] 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
--- OUTSIDE RECORDS SUMMARY | 2025-06-19 14:05 | XMS_ITS | Clinical Summary ---
Author Organization [facility] Address [address] [place] [address] Care Team Providers Care Tie Maker Name Role Phone Keily Bruce MD Unavailable Unavailable Bety Grover RN Unavailable Unavailable Vianney Newton Primary Care Pr ovider Source Comments [facility],non-owned Affiliates and Associated Physician Practices is amultiple site organization consisting of ambulatory clinics and hospital sitesin [place], [place], [place] and [place]. This disclosure is being madepursuant to the Care Everywhere program and may not contain all information available regarding this patient. Last updated [facility] Allergies No known active allergies Medications * [...] on file Legal Sex Female 6:31 AM POWDER WORKER Gender Identity Female 10/17/2017 2:25 PM POWDER WORKER Sexual Orientation Not on file Last Filed Vital Signs Vital Sign Reading Time Taken Comments Blood Pressure 112/70 12/06/2017 9:49 AM POWDER WORKER Pulse 89 12/06/2017 9:49 AM POWDER WORKER Temperature 36.1 C (97 F) 11/01/2017 3:26 PM POWDER WORKER Respiratory Rate 18 12/06/2017 9:49 AM POWDER WORKER Oxygen Saturation 99% 12/06/2017 9:49 AM POWDER WORKER Inhaled Oxygen Concentration 95% 2010 7 :28 AM POWDER WORKER Weight 87.5 kg (193 lb) 12/06/2017 9:49 AM POWDER WORKER Height 167.6 cm (5' 6) 12/06/2017 9:49 AM POWDER WORKER Body Mass Index 31.15 12/06/2017 9:49 AM POWDER WORKER Plan of Treatment Health Maintenance Due Date [...] MD (Doctor), Destinee Dwyer RN, Sherie Etienne, Scalp Specialist Referring MD: Rashi Bourgeois MD (Referring MD) [...] for surveillance. - Call my office at [phone] if you have any questions. Procedure Code(s): [...] malignant neoplasms of colon CPT copyright 2013 [employer]. All rights reserved. The codes documented in this report are preliminary and upon home theater experience expert review may be revised to meet current compliance requirements. Tate Beck MD 04/23/2014 8:29 AM Number of Addenda: 0 Note Initiated On: 04/23/2014 7:57 AM [facility] 04/23/2014 7:57 AM CDT Narrative [facility] - 04/23/2014 8:31 AM CDT Procedure Note Tate Beck MD - 04/23/2014 8:31 AM CDT us Tate Beck MD GI PROCEDURE ORDERABLES E dited [facility] * (ABNORMAL) COMPREHENSIVE METABOLIC PANEL (07/21/2012 6:30 AM CDT) Sodium 138 136 - 145 mmol/L [facility] Potassium 3.7 3.5 - 5.1 mmol/L [facility] Chloride 105 98 - 107 mmol/L [facility] BUN 10 7 - 21.0 mg/dl [facility] Creatinine 1.01 0.5 - 1.3 mg/dl [facility] Glucose 96 65 - 105 mg/dl [facility] Calcium 8.5 8.5 - 10.1 mg/dl [facility] Alkaline Phosphatase 44 38 - 126 U/L [facility] AST 22 5.0 - 40 U/L [facility] Bilirubin Total 0.5 0.2 - 1.0 mg/dl [facility] Protein Total 6.8 6.4 - 8.2 gm/dl [facility] Albumin 3.4 3.4 - 5.0 gm/dl [facility] CO2 24 22 - 30 mmol/L [facility] ALT 35 12.0 - 78.0 U/L [facility] eGFR by MDRD 58(L) >60 mL/min/1.7 3m2 [facility] Comment eGFR [facility] Comment: The eGFR does not apply to patients who are younger than 18 or older than 70. Blood specimen (specimen) BLOOD SPECIMEN / Unknown 07/21/2012 6:30 AM CDT 07/21/2012 6:44 AM CDT Alex Valles MD LAB - CHEMISTRY ORDERABLES Kavin anna [facility] Organization Address City/State/ZIP Co de Phone Number [facility] [address] [place] [address] from Last 3 Months or Most Recently Relevant to Health Maintenance Insurance ANTHEM Care Teams Tie Maker Relationship Specialty Start Date End Date Vianney Newton PA [address] [place] [address] PCP - General Physician Filling Hand 12/06/17 Keily Bruce MD Surgery 10/18/17 Bety Grover, RN Registered Nurse 11/01/17
--- OUTSIDE RECORDS SUMMARY | 2025-06-19 14:06 | XMS_ITS | Clinical Summary ---
Author Organization [facility] [address] Address [address] [place] [address] Phone Care Team Providers Care Tank Calibrator Name Role Phone Lucien Simon MD Unavailable [phone] Ira Leigh MD Unavailable [phone] Kennedy Lynch MD Unavailable [phone] Vianney Carpenter Primary Care Pr ovider Allergies [...] indefinitely. Assessment & Plan (10/13/2024 8:26 AM DIRECTOR OF APPLICATION DEVELOPMENT): Previously positive anti-cardiolipin and beta-2 glycoprotein. LUE [...] 02/2024. Assessment & Plan (10/11/2023 8:59 AM DIRECTOR OF APPLICATION DEVELOPMENT): Previously positive anti-cardiolipin and beta-2 glycoprotein. LUE [...] count - Check anti-cardiolipin IgG and IgM, rzjo-[id number]-[id number] IgG and IgM. - If APLS labs [...] (04/28/2020): Added automatically from request for surgery [id number] Assessment & Plan (05/01/2020 9:10 AM CDT): [...] limitations. Assessment & Plan (12/14/2021 8:37 AM DIRECTOR OF APPLICATION DEVELOPMENT): S/p R TED on 05/08/[address] [...] S/p R TED on 05/08/[address] Mzea. Finished PT. Overall, pain has significantly improved. Able to do normal daily function without limitations. Assessment & Plan (03/17/2021 8:48 AM CDT): S/p R TED on 05/08/[address] Meza. Finished PT. Overall, pain has significantly improved. Able to do normal daily function without limitations. Assessment & Plan (12/16/2020 8:29 AM DIRECTOR OF APPLICATION DEVELOPMENT): R TED on 05/08/[address] Meza. Finished PT. Overall, pain has significantly improved. Able to do normal daily functions without limitations. Assessment & Plan (09/16/2020 8:33 AM DIRECTOR OF APPLICATION DEVELOPMENT): R TED on 05/08/[address] Meza. [...] limitations. Assessment & Plan (11/12/2019 8:54 AM DIRECTOR OF APPLICATION DEVELOPMENT): R TED on 05/08/[address] Meza. Finished PT. Continue home exercises. Assessment & Plan (09/28/2019 8:32 AM DIRECTOR OF APPLICATION DEVELOPMENT): R TED on 05/08/[address] Meza. [...] ortho. Assessment & Plan (01/05/2019 8:47 AM DIRECTOR OF APPLICATION DEVELOPMENT): Gradually worsening R anterior groin/hip pain for [...] the acetabulum Will refer to ortho Dr. 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 Consider trying Pt, she wants to wait. [...] 07/2017 Assessment & Plan (10/13/2024 8:26 AM DIRECTOR OF APPLICATION DEVELOPMENT): Normal TPMT Quantiferon negative: 02/2018 Hepatitis negative: 07/2017 Assessment & Plan (06/11/2024 9:01 AM CDT): Normal TPMT Quantiferon negative: 02/2018 Hepatitis negative: 07/2017 Assessment & Plan (02/10/2024 9:12 AM CDT): Normal TPMT Quantiferon negative: 02/2018 Hepatitis negative: 07/2017 Assessment & Plan (10/11/2023 8:58 AM DIRECTOR OF APPLICATION DEVELOPMENT): Normal TPMT Quantiferon negative: 02/2018 Hepatitis negative: 07/2017 Assessment & Plan (06/11/2023 8:27 AM CDT): Normal TPMT Quantiferon negative: 02/2018 Hepatitis negative: 07/2017 Assessment & Plan (02/12/2023 8:29 AM CDT): Normal TPMT Quantiferon negative: 02/2018 Hepatitis negative: 07/2017 Assessment & Plan (11/01/2022 8:26 AM DIRECTOR OF APPLICATION DEVELOPMENT): Normal TPMT Quantiferon negative: 02/2018 Hepatitis negative: 07/2017 Assessment & Plan (07/09/2022 9:46 AM CDT): Normal TPMT Quantiferon negative: 02/2018 Hepatitis negative: 07/2017 Assessment & Plan (03/08/2022 1:30 PM CDT): Normal TPMT Quantiferon negative: 02/2018 Hepatitis negative: 07/2017 Assessment & Plan (12/14/2021 8:26 AM DIRECTOR OF APPLICATION DEVELOPMENT): Normal TPMT Quantiferon negative: 02/2018 Hepatitis negative: 07/2017 Assessment & Plan (09/15/2021 8:34 AM CDT): Normal TPMT Quantiferon negative: 02/2018 Hepatitis negative: 07/2017 Assessment & Plan (06/16/2021 11:06 AM CDT): Normal TPMT Quantiferon negative: 02/2018 Hepatitis negative: 07/2017 Assessment & Plan (03/17/2021 8:48 AM CDT): Normal TPMT Quantiferon negative: 02/2018 Hepatitis negative: 07/2017 Assessment & Plan (12/16/2020 8:29 AM DIRECTOR OF APPLICATION DEVELOPMENT): Normal TPMT Quantiferon negative: 02/2018 Hepatitis negative: 07/2017 Assessment & Plan (09/16/2020 8:33 AM DIRECTOR OF APPLICATION DEVELOPMENT): Normal TPMT Quantiferon negative: 02/2018 Hepatitis negative: [...] 07/2017 Assessment & Plan (11/12/2019 8:59 AM DIRECTOR OF APPLICATION DEVELOPMENT): Normal TPMT Quantiferon negative: 02/2018 Hepatitis negative: 07/2017 Assessment & Plan (09/28/2019 8:33 AM DIRECTOR OF APPLICATION DEVELOPMENT): Normal TPMT Quantiferon negative: 02/2018 Hepatitis negative: 07/2017 Assessment & Plan (07/06/2019 10:41 AM CDT): Normal TPMT Quantiferon negative: 02/2018 Hepatitis negative: 07/2017 Assessment & Plan (04/07/2019 11:26 AM CDT): Normal TPMT Quantiferon negative: 02/2018 Hepatitis negative: 07/2017 Assessment & Plan (02/02/2019 10:09 AM CDT): Normal TPMT Quantiferon negative: 02/2018, recheck next visit. Hepatitis negative: 07/2017 Assessment & Plan (01/05/2019 5:47 PM DIRECTOR OF APPLICATION DEVELOPMENT): Normal tpmt quantiferon neg 03/03/18 Neg hepatitis panel 9/17 Assessment & Plan (2018 10:16 AM DIRECTOR OF APPLICATION DEVELOPMENT): Normal tpmt quantiferon neg 03/03/18 Neg hepatitis panel 9/17 Assessment & Plan (10/17/2018 9:49 AM DIRECTOR OF APPLICATION DEVELOPMENT): Normal tpmt quantiferon neg 03/03/18 Neg hepatitis [...] (hyperlipidemia) Assessment & Plan (11/12/2019 8:59 AM DIRECTOR OF APPLICATION DEVELOPMENT): Labs per pcp request. Assessment & Plan [...] needed. Assessment & Plan (10/13/2024 8:42 AM DIRECTOR OF APPLICATION DEVELOPMENT): Improvement of pain in the wrists since [...] needed. Assessment & Plan (10/11/2023 8:57 AM DIRECTOR OF APPLICATION DEVELOPMENT): Joint symptoms remain stable. Hx of oral [...] needed. Assessment & Plan (11/01/2022 8:42 AM DIRECTOR OF APPLICATION DEVELOPMENT): Joint symptoms slightly increased with colder weather. [...] needed. Assessment & Plan (12/14/2021 8:39 AM DIRECTOR OF APPLICATION DEVELOPMENT): Joint symptoms remain stable. Having some oral [...] needed. Assessment & Plan (12/16/2020 9:17 AM DIRECTOR OF APPLICATION DEVELOPMENT): Low cdai. Synovitis and tenderness improved with [...] needed. Assessment & Plan (09/16/2020 9:07 AM DIRECTOR OF APPLICATION DEVELOPMENT): Moderate cdai. Continues to have synovitis with [...] stiffness and pain lately. Remains on HCQ. [place] she did better with azathioprine in the [...] needed. Assessment & Plan (11/12/2019 8:58 AM DIRECTOR OF APPLICATION DEVELOPMENT): Low cdai. Few swollen joints without tenderness [...] needed. Assessment & Plan (09/28/2019 8:58 AM DIRECTOR OF APPLICATION DEVELOPMENT): High cdai. Several swollen and tender joints [...] needed. Assessment & Plan (01/05/2019 5:46 PM DIRECTOR OF APPLICATION DEVELOPMENT): Moderate activity on exam. Pt had significant [...] month. Assessment & Plan (2018 5:06 PM DIRECTOR OF APPLICATION DEVELOPMENT): High activity on exam. Pt had significant [...] month Assessment & Plan (10/17/2018 11:41 AM DIRECTOR OF APPLICATION DEVELOPMENT): High activity on exam. Pt had significant [...] worse. Assessment & Plan (10/25/2017 10:35 AM DIRECTOR OF APPLICATION DEVELOPMENT): cdai = 11 Pt had significant synovitis [...] tachycardia) Assessment & Plan (2018 5:07 PM DIRECTOR OF APPLICATION DEVELOPMENT): Hx SVT. Pt reporting palpitation episodes recently. [...] 02/11/2025 Assessment & Plan (10/13/2024 8:46 AM DIRECTOR OF APPLICATION DEVELOPMENT): Mass/swelling over left dorsal wrist could suggest a cyst. Notes decreased active extension due to swelling/pain. Could consider MRI to further evaluate. 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 0 Overview (04/28/2020): Added automatically from request for surgery [id number] Preoperative cardiovascular examination 03/31/2019 11/08/2020 Osteoarthritis of knee 02/21/201205/02 Overview (02/15/2017): DJD (degenerative joint disease) of knee Encounters Date Type Department Care Team Description 06/18/2025 Results Follow-Up [address] [address] Rashmi Caputo PA C3 complement, C4 complement, CBC with auto differential, Additional followed-up results: 5 06/17/2025 8:30 AM CDT Office Visit [facility] [address] [place] [phone] Rashmi Caputo PA Other systemic lupus erythematosus with other organ involvement (Primary Dx); History of blood clots; High risk medications (not anticoagulants) long-term use 04/19/2025 8:22 AM CDT - 04/19/2025 11:59 PM CDT Hospital Encounter [address] [address] Left wrist pain Discharge Disposition: Discharge to home or self care 03/31/2025 Orders Only [facility] [address] [place] [phone] Rashmi Caputo PA Left wrist pain (Primary Dx) 03/25/2025 Orders Only [facility] [address] [place] [phone] Rashmi Caputo PA from Last 3 Months [...] on file Legal Sex Female 7:45 PM DIRECTOR OF APPLICATION DEVELOPMENT Gender Identity Female 11/21/2020 9:16 AM DIRECTOR OF APPLICATION DEVELOPMENT Sexual Orientation Choose not to disclose 2020 9:01 AM DIRECTOR OF APPLICATION DEVELOPMENT Obstetrics History Last Filed Vital Signs Vital [...] CDT 06/17/2025 9:15 AM CDT Rashmi Caputo IA LAB BLOOD ORDERABLES Final Result Performing Organization Address [facility] de Phone Number [facility] [address] [place] [address] * (ABNORMAL) C4 complement (06/17/2025 9:14 AM CDT) Pathologist [facility] Complement component C4C 13(L) 15 - 57 mg/dL [facility] Blood 06/17/2025 9:14 AM CDT 06/17/2025 9:15 AM CDT Rashmi Caputo IA LAB BLOOD ORDERABLES Final Result Performing Organization Address [facility] de Phone Number [facility] [address] [place] [address] * (ABNORMAL) CBC with auto differential (06/17/2025 9:14 AM CDT) Pathologist [facility] WBC 4.6 3.8 - 10.8 Thousand/u L [...] LAB BLOOD ORDERABLES Final Result [facility] [address] [place] [address] * Protein / creatinine ratio, urine, random [...] URINE ORDERABLES Final Result Performing Organization Address [facility] Co de Phone Number [facility] [address] [place] [address] * Erythrocyte sedimentation rate (06/17/2025 9:14 AM CDT) Erythrocyte sedimentation rate 9 < OR = 30 mm/h [facility] Blood 06/17/2025 9:14 AM CDT 06/17/2025 9:15 AM CDT Rashmi MIRANDA LAB BLOOD ORDERABLES Final Result Performing Organization Address [facility] de Phone Number [facility] [address] [place] [address] * C3 complement (06/17/2025 9:14 AM CDT) Complement component C3C 117 83 - 193 mg/dL [facility] Blood 06/17/2025 9:14 AM CDT 06/17/2025 9:15 AM CDT Rashmi MIRANDA LAB BLOOD ORDERABLES Final Result Performing Organization Address [facility] de Phone Number [facility] [address] [place] [address] * CRP (acute phase) (06/17/2025 9:14 AM CDT) C-RP <3.0 <8.0 mg/L [facility] Blood 06/17/2025 9:14 AM CDT 06/17/2025 9:15 AM CDT Rashmi MIRANDA LAB BLOOD ORDERABLES Final Result Performing Organization Address [facility] Co de Phone Number [facility] [address] [place] [address] * (ABNORMAL) Comprehensive metabolic panel (06/17/2025 9:14 [...] LAB BLOOD ORDERABLES Final Result [facility] [address] [place] [address] * US Hand Complete (04/19/2025 8:56 AM [...] Agency Comment Performing Organization Information: Site ID: [place] Name: [facility] Address: [id number] [place] [address] [place] [address] Director: Marko Fishman D.O., MPH Marleni MIRANDA LAB MICROBIOLOGY - GENER AL ORDERABLES Final Result [facility] [place], [place] * Screening Mammogram (02/28/2015 3:11 PM CDT) Anatomical Region Laterality Modality Breast N/A Mammography 02/28/2015 3:11 PM CDT Narrative 03/02/2015 10:01 AM CDT KAROLINE ASHLEY M.D. FINAL REPORT The radiology attending physician has personally reviewed this study, and has reviewed and/or edited this written report and agrees with it. ACC# Date Time Exam [id number] Feb 28, 2015 15:11:00 HBC [id number] Bilateral Screen w Jose C Technologist(s): Lima Corrales; ; EXAMINATION: Mammogram Technique: Bilateral Bilateral Full-Field Digital Screening Mammogram and Digital Breast Tomosynthesis were performed. Views obtained: . Computer Aided Detection of the 2D images was performed with [employer], Pipefish 1.3 version 9.3. Mammogram Findings: The present examination has been compared to prior imaging studies performed at [facility] on 04/17/2013, 05/30/2009 and 05/28/2008. There are scattered fibroglandular densities. There is no suspicious abnormality in either breast. IMPRESSION: Annual screening mammography is recommended. OVERALL FINAL ASSESSMENT: BI-RADS CATEGORY 1: Negative. Requested By: Dictated By: KAROLINE ASHLEY M.D. on Mar 02 2015 10:01A This document has been electronically signed by: KAROLINE ASHLEY M.D. on Mar 02 2015 10:01A [id number] Procedure Note Provider, MD Davin - 03/12/2017 KAROLINE ASHLEY M.D. FINAL REPORT The radiology attending physician has personally reviewed this study, and has reviewed and/or edited this written report and agrees with it. ACC# Date Time Exam [id number] Feb 28, 2015 15:11:00 HBC [id number] Bilateral Screen w Jose C Technologist(s): Lima Corrales; ; EXAMINATION: Mammogram Technique: Bilateral Bilateral Full-Field Digital Screening Mammogram and Digital Breast Tomosynthesis were performed. Views obtained: . Computer Aided Detection of the 2D images was performed with [employer], [employer]ipe[employer] 1.3 version9.3. Mammogram Findings: The present examination has been compared to prior imaging studies performed at [facility] on04/17/2013, 05/30/2009 and 05/28/2008. There are scattered fibroglandular densities. There is no suspicious abnormality in either breast. IMPRESSION: Annual screening mammography is recommended. OVERALL FINAL ASSESSMENT: BI-RADS CATEGORY 1: Negative. Requested By: Dictated By: KAROLINE ASHLEY M.D. on Mar 02 2015 10:01A This document has been electronically signed by: KAROLINE ASHLEY M.D. on Mar 02 2015 10:01A [id number] us Historical Provider MD [facility] Zhanna l Result from Last 3 Months or Most Recently Relevant to Health Maintenance Insurance ANTHEM TRADITIONAL ANTHEM TRADITIONAL ANTHEM TRADITIONAL [facility] FEDERAL [facility] FED[employer]AL Advance Directives For more information, please contact: [phone] * Full Code (Latest Code Status on File) Date Activated Date Inactivated Comments 04/29/2020 2:40 AM 05/02/2020 6:47 PM * Full Code Date Activated Date Inactivated Comments 04/29/2020 2:40 AM 04/29/2020 2:40 AM Care Teams Tank Calibrator Relationship Specialty Start Date End Date Vianney Carpenter PA [address] [employer] [id number] PCP - General Physician Business Proposal Rep 06/17/25 Lucien Simon MD Surgeon Vascular Surgery 05/02/20 Ira Leigh MD [address] [place], [place] [id number] Medical Oncologist/Clerical And Administrative Workers Hematology and Oncology 12/21/20 Kennedy Lynch MD [address] [place] [address] Consulting Physician Rheumatology 02/10/24 RUTH Urias [address], [place] [address] Physician Business Proposal Rep Office Manager Receptionist 02/10/24
--- OUTSIDE RECORDS SUMMARY | 2025-06-19 14:06 | XMS_ITS | Encounter Summary ---
Author Organization [facility] Address [address] [place] [address] Phone Care Team Providers Care Spring Former Machine Name Role Phone Vianney Carpenter Primary Care Pr ovider Dino BRYAN MD, Lucien Riggs Unavailable [phone] Lucien Simon MD Unavailable [phone] Ira Leigh MD Unavailable [phone] Kennedy Lynch MD Unavailable [phone] Vianney Carpenter Primary Care Pr ovider [...] on file Legal Sex Female 7:45 PM REGISTRATION REPRESENTATIVE Gender Identity Female 11/21/2020 9:16 AM REGISTRATION REPRESENTATIVE Sexual Orientation Choose not to disclose 2020 9:01 AM REGISTRATION REPRESENTATIVE documented as of this encounter Plan of Treatment Not on file documented as of this encounter Procedures Procedure Name Priority Date/Time Associated Diagnosis Comments SCAN - RADIOLOGY/IMAGING 08/14/2023 documented in this encounter Results * SCAN - RADIOLOGY/IMAGING (08/14/2023) Anatomical Region Laterality Modality Other us Provider Scanning Final Result documented in this encounter Visit Diagnoses Not on filedocumented in this encounter Care Teams Spring Former Machine Relationship Specialty Start Date End Date Vianney Carpenter PA PCP - General 02/08/17 06/16/25 Vianney Carpenter PA [address] [place] [address] PCP - General Physician Global Marketing Specialist 06/17/25 Lucien Sun III, MD [address] [place] [address] Rheumatology 10/09/17 02/09/24 Lucien Simon MD [address] [place] [address] Surgeon Vascular Surgery 05/02/20 Ira Leigh MD [address] [place] [address] Medical Oncologist/Survey Party Chief Hematology and Oncology 12/21/20 Kennedy Lynch MD [address] [place] [address] Consulting Physician Rheumatology 02/10/24 RUTH Urias [address], [place] [address] Physician Global Marketing Specialist Executive Chairman 02/10/24 documented as of this encounter
[2025-06-19] MEDS: ACETAMINOPHEN 500 MG TABLET 1000 MG PO (15:00)
[2025-06-19 16:00] VITALS: BP 115/75; PULSE 62; RESP 16; O2SAT 98
--- NOTE | 2025-06-19 16:08 | PC.NURSE ---
Per BROOKS Mccoy, splint looks good and pt. it ok to be d/c.
== END 2025-06-19 16:31 | disposition home or self-care (01) ==
PROVIDERS: Emergency Provider Registered Nurse Emergency; PCP Physician Assistant
DX: S82.891A Other fracture of right lower leg, initial encounter for closed fracture (principal); I10 Essential (primary) hypertension; M32.9 Systemic lupus erythematosus, unspecified; Z79.01 Long term (current) use of anticoagulants; X50.0XXA Overexertion from strenuous movement or load, initial encounter
CPT/HCPCS: 29515; 73610; 73630; 73700; 99284; A9270

== ENCOUNTER 2025-08-05 10:31 | Outpatient (CLI) | payer BC, SELFPAY ==
--- NOTE | ~2025-08-05 | MM_ITS ---
EXAMINATION: MM screening natty BI w saumya HISTORY: Screening TECHNIQUE: Craniocaudal and mediolateral oblique 3-D tomosynthesis images were obtained and synthetic 2-D images were generated. CAD analysis was submitted and interpreted. COMPARISON: Comparison to multiple prior studies sequentially, with oldest reviewed study dated , 12/19/2020 BREAST PARENCHYMAL COMPOSITION: There are scattered areas of fibroglandular density. FINDINGS: There is no evidence of suspicious mass, calcification, or architectural distortion to suggest malignancy in either breast. IMPRESSION: 1. No mammographic evidence of malignancy. 2. Recommend routine screening mammography in one year. BI-RADS Category 1: Negative Reviewed, dictated and finalized at location B.
== END 2025-08-05 10:32 | disposition home or self-care (01) ==
LOC: MICIMG 10:32
PROVIDERS: PCP Physician Assistant; Visit Provider Nurse Practitioner
DX: Z12.31 Encounter for screening mammogram for malignant neoplasm of breast (principal)
CPT/HCPCS: 77063; 77067

== ENCOUNTER 2025-09-24 12:05 | Emergency (ER) | payer BC, SELFPAY ==
[2025-09-24 12:21] VITALS: BP 129/81; PULSE 86; RESP 20; TEMP 36.4; O2SAT 99
[2025-09-24] MEDS: TETANUS,DIPHTHERIA,AC PERTUSSIS ADULT (0.5 ML) BOOSTRIX IM (13:06)
--- NOTE | 2025-09-24 13:22 | ED.ANIMALBIT ---
HPI - Animal Bite General Chief Complaint: Animal Bite Stated Complaint: dog bite Time Seen by Provider: 09/24/25 12:22 Source: patient Mode of arrival: ambulatory Limitations: no limitations History of Present Illness HPI narrative: Patient is a 64-year-old female who presents the ED with report of a dog bite. Patient reports her and her friend's dogs were playing when 1 of the dogs caught their jaw caught in the other's collar. She attempted to help break up the dogs and sustained a bite to her L lateral calf, small laceration to L thumb. Dogs are up-to-date on their vaccines. Patient's tetanus is unknown. Related Data Home Medications ?Medication ?Instructions ?Recorded ?Confirmed ?Last Taken ?Type atenolol 25 mg tablet 25 mg PO DAILY 02/05/22 09/13/23 09/17/23 History cholecalciferol (vitamin D3) 50 50 mcg PO DAILY 02/05/22 09/13/23 09/17/23 History mcg (2,000 unit) tablet (Vitamin D3) duloxetine 60 mg capsule,delayed 60 mg PO DAILY 02/05/22 09/13/23 09/17/23 History release hydroxychloroquine 200 mg tablet 200 mg PO BID 02/05/22 09/13/23 09/17/23 History vitamin B complex 1 tablet PO DAILY 02/05/22 09/13/23 09/17/23 History zolpidem 12.5 mg tablet,extended 12.5 mg PO HS 02/05/22 09/13/23 09/17/23 History release,multiphase simvastatin 20 mg tablet 20 mg PO DAILY 07/21/22 09/13/23 09/17/23 History apixaban 5 mg tablet (Eliquis) 5 mg PO BID 09/13/23 09/13/23 09/15/23 History azathioprine 50 mg tablet 50 mg PO QPM 09/13/23 09/13/23 09/17/23 History azathioprine 50 mg tablet 100 mg PO QAM 09/13/23 09/13/23 09/17/23 History enoxaparin 100 mg/mL subcutaneous 100 mg subcut DAILY 09/18/23 09/18/23 09/17/23 History syringe Allergies Allergy/AdvReac Type Severity Reaction Status Date / Time No Known Allergies Allergy Verified 09/24/25 12:26 Review of Systems Review of Systems: All systems reviewed & are unremarkable except as noted in HPI. All systems reviewed & are unremarkable except as noted in HPI and below PMFSH Past Medical History Medical History Asthma Hypertension Systemic lupus erythematosus Irregular heart beat Social History Social History Smoking status: Never smoker Alcohol intake: current Alcohol use details: 2-3 drinks monthly Substance use: never Substance use type: does not use Living arrangements: with family Spiritual care concerns: No Exam Narrative: GENERAL: Well appearing, well-nourished, non-toxic, in no acute distress. HEAD: Normocephalic, atraumatic. RESPIRATORY: Airway patent, respirations nonlabored. Clear to auscultation bilaterally, no rales, rhonchi, wheezing. CARDIOVASCULAR: Regular rate and rhythm. Peripheral pulses intact MUSCULOSKELETAL: Moves all extremities. No gross deformities. SKIN: Warm, dry, normal color. Left lateral calf with two puncture wound bite cooley, small surrounding abrasions/small skin avulsions. No deep wounds or lacerations to calf. No active bleeding. Very small superficial c-shaped laceration to medial L thumb finger pad, no active bleeding. NEURO: A&O X3. Speech clear. Cranial nerves II-XII grossly intact. Steady gait. No ataxic movements. PSYCHIATRIC: Appropriate mood and affect. Normal interaction. Course Vital Signs Vital signs: Vital Signs Temperature 97.6 F 09/24/25 12:21 Pulse Rate 86 09/24/25 12:21 Respiratory Rate 20 09/24/25 12:21 Blood Pressure 129/81 09/24/25 12:21 Pulse Oximetry 99 09/24/25 12:21 Oxygen Delivery Room Air 09/24/25 12:21 Temperature 97.6 F 09/24/25 12:21 Pulse Rate 86 09/24/25 12:21 Respiratory Rate 20 09/24/25 12:21 Blood Pressure 129/81 09/24/25 12:21 Pulse Oximetry 99 09/24/25 12:21 Oxygen Delivery Room Air 09/24/25 12:21 MDM - Animal Bite MDM Narrative Medical decision making narrative: Patient presented to ED with dog bite. Small abrasions/wounds to left thumb and left calf. Wounds are superficial, no significant active bleeding. Do not require suture repair. Wounds were cleansed and bandaged. Patient will be started on Augmentin. Tetanus updated in the ED. Patient advised to monitor closely for signs of infection. Given strict return precautions . She agrees with plan. Discharged in stable condition Medical Records Attestation: I reviewed the patient's medical records. Discharge Plan Discharge Clinical Impression: Dog bite of left calf, Dog bite of left thumb Patient Disposition: Home Condition: Stable Instructions: Antibiotic Form, Animal Bite (ED), Laceration (ED) Additional Instructions: Take antibiotics as prescribed for protection against infection. Keep wounds clean and bandaged. Monitor for signs of infection. Recommend Tylenol/ibuprofen as needed for pain. Follow-up with your primary care doctor for further evaluation if needed. Return for new or worsening concerns, signs of infection, severe pain, fevers, or any other symptoms of concern. Patient Language: Portuguese Prescriptions: New amoxicillin-pot clavulanate 875-125 mg tablet 1 tablet PO Q12H 7 Days Qty: 14 0RF No Action azathioprine 50 mg tablet 100 mg PO QAM azathioprine 50 mg tablet 50 mg PO QPM Eliquis 5 mg Tablet 5 mg PO BID enoxaparin 100 mg/mL syringe 100 mg subcut DAILY pantoprazole 40 mg tablet,delayed release (DR/EC) 40 mg PO QAM Qty: 30 5RF atenolol 25 mg tablet 25 mg PO DAILY hydroxychloroquine 200 mg tablet 200 mg PO BID duloxetine 60 mg capsule,delayed release(DR/EC) 60 mg PO DAILY zolpidem 12.5 mg tablet,ext release multiphase 12.5 mg PO HS vitamin B complex Tablet 1 tablet PO DAILY cholecalciferol (vitamin D3) [Vitamin D3] 50 mcg (2,000 unit) Tablet 50 mcg PO DAILY simvastatin 20 mg tablet 20 mg PO DAILY Follow-up/Referrals: Jayden,ABBEY Faith [Primary Care Provider, Unknown] Time of Disposition: 13:25
--- OUTSIDE RECORDS SUMMARY | 2025-09-24 17:50 | XMS_ITS | Data Portability ---
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 Plan of Treatment Reminders Order Date Submit Date Provider Last Modified By Organization Details Last Modified Time Details Appointments None record ed. Lab None record ed. Referral None record ed. Procedures None record ed. Surgeries None record ed. Imaging None record ed. Medication Orders None record ed. Patient TargetsNo targets recorded. Patient InstructionsNo instructions recorded. Reason for Referral None Reported. Procedures Surgical History Date Name Laterality Status Provider Name and Address Organization Details Recorded Time 10/26/2016 Sleep Study completed Binu Santoyo [facility]/[employer] 10/29/20 16 12:07:33 Imaging Results None recorded. Procedure Notes None recorded. Medical Equipment None Reported. Medications Name Sig Start Date Stop Date Status Note LastModified by Organization Details LastModified Time prednisone 10 mg tablet active Not Available Not Available Not Available azithromycin 250 mg tablet active Not Available Not Available Not Available prednisone 20 mg tablet active Not Available Not Available Not Available atenolol 25 mg tablet active Not Available Not Available Not Available valacyclovir 500 mg tablet active Not Available Not Available Not Available pantoprazole 40 mg tablet,delayed release active Not Available Not Available Not Available simvastatin 20 mg tablet active Not Available Not Available Not Available hydroxychloroquine 200 mg tablet active Not Available Not Availabl e Not Available methylprednisolone 4 mg tablets in a dose pack active Not Available Not Available No t Available doxycycline hyclate 100 mg tablet active Not Available Not Availabl e Not Available buspirone 15 mg tablet active Not Available Not Available Not Available duloxetine 60 mg capsule,delayed release active Not Available Not Available Not Available zolpidem ER 12.5 mg tablet,extended release,multiphase active Not Available Not Aislinn ilable Not Available Vitals Date Recorded Body height Body weight Body mass index (BMI) Provider Name and Address Organization Details Last Updated DateTime 10/26/2016 167.64 cm 72261.99 g 34.1 kg/m2 Ayad Cisneros [facility] [place] 10/26/2016 10:46:12 Social History None recorded. Functional Status None recorded. Mental Status None recorded. Family History Nothing Reported. Medical History No medical history recorded. Gynecological HistoryNo gynecological history recorded. Obstetrics History GPAL:G 0 P 0 0 0 0 Past Encounters Encounter ID Performer Location Encounter Start Date Encounter Closed Date Diagnosis/Indication Diagnosis SNOMED-CT Code Diagnosis ICD10 Code Diagnosis IMO Codes Diagnosis Note [id number] [facility], [facility] (20) [address] [address] 10/26/2016 10:07:22 10/29/2016 12:13:26 Obstructive sleep apnea of adult 4570783624 103 G47.33 Health Concerns Section Related Observation LastModified by Organization Detai ls LastModified Time None Recorded Concern Status LastModified by Organization Details LastModified Time None Recorded Advance Directives Directive None Recorded Payers Insurance Date Sequence Insurance Name Policy Number Policy Jernigan Covered Member ID Jernigan Member ID Guarantor Name 10/26/2016 1 [employer] [id number] Janki Love [id number] Janki Love Notes Date Note Type Note Provider Name and Address Organization Details Recorded Time 6 text/html HST SetupReported by PatientEquipment InstructionsFor hst set up, patient reportsdemonstrated to patient how to set up home sleep test device. the patient was able to return demonstration with out difficulty..using device Saturday night and returning Saturday morning Jose Burden MD, F.C.C.P. [address] [facility] [address] [facility], [place], [address], [facility] [place] 10/30/2016 08:37:23 OBGyn Episode No OBEpisode recorded.
--- OUTSIDE RECORDS SUMMARY | 2025-09-24 17:50 | XMS_ITS | Continuity of Care Document ---
Author Organization [facility] Address [address] [place] [address] [place] [address] Assessment Encounter Date Assessment Date Assessment LastModified by Organization Details LastModified Time 07/20/2025 07/20/2025 Annual gynecological exam performed. Patient will come back in a year unless there are new symptoms. [email or web address] Not available 07/20/2025 09:29:49 Plan of Treatment Reminders Order Date Submit Date Provider Last Modified By Organization Details Last Modified Time Details Appointments None recorded. Lab None recorded. Referral None recorded. Procedures None recorded. Surgeries None recorded. Imaging MAMMO, screening, digital, bilateral 2024 025 [facility], [address], [place], [address], 17:20:48 Medication Orders None recorded. Patient TargetsNo targets recorded. Patient InstructionsNo instructions recorded. Reason for Referral None Reported. Results Created Date Observation Date Name Description Value Unit Range Abnormal Flag Note LastModifiedBy Organization Detail LastModifiedTime 08/05/2008/05/2025 MAMMO , scree miguel, digit al, bilat eral No observ ation record ed. [facility] [address], [place], [address], 08/20/2025 11:14:58 Result Notes None recorded. Problems Name Problem SNOMED Code Status Onset Date Resolution Date Notes Provider Name and Address Organization Details Recorded Time Adult health examinat ion Completed 201301/02/2021 Routine Medical Exam;Rec orded Elsewher e: No Locat ion: [facility] S ource: [employer] irvin: N Practi ce ID: 0001 [place] lable Time: 11:00:00 AM Laura fair, [facility] 1 11:49:00 Screenin g for malignan t neoplasm of cervix Completed 201301/02/2021 Screenin g for malignan t neoplasm s of the cervix;R ecorded Elsewher e: No Locat ion: [facility] S ource: [employer] irvin: N Practi ce ID: 0001 [place] lable Time: 11:00:00 AM Laura fair, [facility] 11:50:03 Menstrua tion finding Completed 201401/02/2021 Menorrha joel;Pavan rded Elsewher e: No Locat ion: [facility] S ource: [employer] irvin: N Practi ce ID: 0001 [place] lable Time: 08:30:00 AM Laura fair, [facility] 11:49:11 Speciali zed medical examinat ion Completed 201401/02/2021 Gynecolo gical Examinat ion;Pavan rded Elsewher e: No Locat ion: [facility] S ource: [employer] irvin: N Practi ce ID: 0001 [place] lable Time: 08:30:00 AM Laura fair, [facility] 11:50:10 Dysfunct ional uterine bleeding Completed 201401/02/2021 DUB;Pavan rded Elsewher e: No Locat ion: [facility] S ource: [employer] irvin: N Practi ce ID: 0001 [place] lable Time: 08:30:00 AM Laura fair, [facility] 11:49:[address] Concept Completed 201501/02/2021 Encntr for general adult medical exam w/o abnormal findings ;Recorde d Elsewher e: No Locat ion: Mildred perez [facility] S ource: [employer] irvin: N Practi ce ID: 0001 [place] lable Time: 08:15:00 AM Laura Melchor null, [facility] 11:50:[address] Concept Completed 201501/02/2021 Anxiety; Recorded Elsewher e: No Locat ion: Mildred perez [facility] N Practi ce ID: 0001 [place] lable Time: 08:15:00 AM Laura Melchor null, [facility] 11:50:06 Pain in female genitali a Completed 201501/02/2021 Dysmenor varun;Rec orded Elsewher e: No Locat ion: Klaudiabeatrice ana [facility] S ource: [facility] irvin: N Practi ce ID: 0001 [place] lable Time: 08:45:00 AM Laura Melchor [facility], [facility] 11:49:03 Abnormal uterine bleeding [id number] 100 Completed 201501/02/2021 Other specifie d abnormal uterine and vaginal bleeding ;Recorde d Elsewher e: No Locat ion: Mildred perez [facility]: N Practi ce ID: 0001 [place] lable Time: 11:15:00 AM Laura Melchor null, [facility] 11:48:58 Pregnanc y test negative [id number] Completed 201501/02/2021 Encounte r for pregnanc y test, result negative ;Recorde d Elsewher e: No Locat ion: [facility]laudi[facility]atrice ana [facility]: N Practi ce ID: 0001 [place] lable Time: 11:15:00 AM Laura Melchor null, [facility] 1 11:50:02 Finding of menstrua l bleeding Completed 201501/02/2021 Excessiv e and frequent menstrua tion with regular cycle;Re corded Elsewher e: No Locat ion: [facility] S ource: [employer] irvin: N Nguyenti ce ID: 0001 [place] lable Time: 10:30:00 AM Laura fair, [facility] 1 11:49:04 Finding of pattern of menstrua l cycle Completed 201501/02/2021 Excessiv e and frequent menstrua tion with irregula r cycle;Re corded Elsewher e: No Locat ion: [facility]: N Nguyenti ce ID: 0001 [place] lable Time: 08:30:00 AM Laura fair, [facility] 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 1 11:50:09 Screenin g for malignan t neoplasm of rectum Completed 201701/02/2021 Encounte r for screenin g for malignan t neoplasm of rectum;R ecorded Elsewher e: No Locat ion: [facility] S ource: [employer] irvin: N Nguyenti ce ID: 0001 [place] lable Time: 08:30:00 AM Laura fair, [facility] 1 11:50:05 Menopaus e present [id number] Completed 201701/02/2021 Symptoms such as flushing , sleeples sness, headache , lack of concentr ation, associat ed with natural (age-rel ated) menopaus e;Record ed Elsewher e: No Locat ion: Mildred perez [facility] S ource: [employer] irvin: N Marty ce ID: 0001 [place] tushar Time: 08:30:00 AM Laura fair [facility] 11:49:07 Postmeno pausal state [id number] Active 2020 [facility] 12:41:36 Notes:Lupus Problem Notes None recorded. Procedures Surgical History Date Name Laterality Status Provider Name and Address Organization Details Recorded Time 03/25/20 24 Date of Last Pap Smear completed Keily Lewis [facility] 07/20/2025 09:33:50 11/11/19 23 Date of Last Mammogram completed [facility] 03/25/2024 09:28:00 11/11/19 21 Colonoscopy completed [facility] 03/25/2024 09:31:18 11/11/19 19 total replacement of right hip joint completed [facility] 01/02/2021 12:41:09 04/11/20 16 Hysteroscopy completed [facility] 01/02/2021 12:43:56 Orthopedic Surgery completed Honey Rangel [facility] 03/05/2023 09:36:23 Knee arthroscopy/surg kim completed [facility] 01/02/2021 12:44:19 Imaging Results None recorded. Procedure Notes None recorded. Medical Equipment None Reported. Allergies No known drug allergies Medications Name Sig Start Date Stop Date Status Note LastModified by Organization Details LastModified Time celecoxib 200 mg capsule 02/22 completed Not Available Not Available Not Available cyclobenz aprine 10 mg tablet TAKE 1 TABLET BY MOUTH EVERY 8 HOURS NEEDED. CUT IN HALF IF TOO SEDATING 03/05 completed Not Available Not Available Not Available amoxicill in 500 mg capsule TAKE 4 CAPSULES BY MOUTH 1 HOUR PRIOR TO DENTAL PROCEDUR E 03/25 completed Not Available Not Available Not Available valacyclo vir 1 gram tablet TAKE TWO TABS BY MOUTH EVERY 12 HOURS X1 DAY FOR COLD SORE FLARE-UP S NEEDED active Not Available Not Available No t Available hydrocodo ne 5 mg-acetam inophen 325 mg tablet TAKE 1 TABLET BY MOUTH EVERY 6 HOURS NEEDED 02/22 completed Not Available Not Available Not Available atenolol 25 mg tablet TAKE 1 TABLET BY MOUTH EVERY DAY active Not Available Not Available No t Available Camron Low Dose Aspirin 81 mg tablet,de layed release take 1 tablet by oral route every day 03/25 completed Prescrib ed Elsewher e: Yes Loca tion: [facility] odify By: rea diaz DateTime : 03/01/20 08:30:00 AM Not Available Not Available Not Available azathiopr ine 50 mg tablet TAKE 2 TABLETS BY MOUTH TWICE A DAY active Not Available Not Available No t Available valacyclo vir 500 mg tablet take 1 tablet (500MG) by oral route every day 03/05 completed Prescrib ed Elsewher e: Yes Loca tion: [facility] odify By: rea diaz DateTime : 02/26/20 11:00:00 AM Not Available Not Available Not Available omeprazol e 40 mg capsule,d elayed release TAKE 1 CAPSULE BY MOUTH TWICE A DAY active Not Available Not Available No t Available amitripty line 25 mg tablet take 1 tablet (25MG) by oral route every day at bedtime 03/05 completed Prescrib ed Elsewher e: No Locat ion: [facility] odify By: gloria watts DateTime : 02/26/20 11:00:00 AM Not Available Not Available Not Available lorazepam 0.5 mg tablet TAKE 1/2 TO 1 TABLET BY MOUTH TWICE DAILY NEEDED active Not Available Not Available No t Available amlodipin e 10 mg tablet TAKE 1 TABLET BY MOUTH EVERY DAY 02/22 completed Not Available Not Available Not Available hydrocodo ne 7.5 mg-acetam inophen 325 mg tablet TAKE ONE TABLET BY MOUTH EVERY 4 HOURS NEEDED FOR PAIN FOR 7 DAYS 02/22 completed Not Available Not Available Not Available pantopraz ole 40 mg tablet,de layed release TAKE 1 TABLET BY MOUTH EVERY DAY active Not Available Not Available No t Available simvastat in 20 mg tablet TAKE 1 TABLET BY MOUTH EVERY DAY IN THE EVENING active Not Available Not Available No t Available bupropion HCl 75 mg tablet take 1 tablet by oral route 3 times every day 03/01 completed Prescrib ed Elsewher e: Yes Loca tion: [facility] odify By: rea diaz DateTime : 02/26/20 14 11:00:00 AM Not Available Not Available Not Available azathiopr ine (bulk) powder 06/06 completed Prescrib ed Elsewher e: Yes Loca tion: [facility] odify By: salome Li ter DateTime : 04/22/20 17 08:45:00 AM Not Available Not Available Not Available clobetaso l 0.05 % topical ointment PLEASE SEE ATTACHED FOR DETAILED DIRECTIO NS active Not Available Not Available No t Available hydroxych loroquine 200 mg tablet TAKE 1 TABLET BY MOUTH TWICE A DAY active Not Available Not Available No t Available epinephri ne 0.3 mg/0.3 mL injection , auto-inje ctor USE DIRECTED NEEDED FOR ALLERGIC REACTION active Not Available Not Available No t Available mycopheno late 500 mg intraveno us solution infuse by intraven ous route 2 times every day 01/03 completed Prescrib ed Elsewher e: Yes [facility] By: salome Li ter DateTime : 06/06/20 19 08:45:00 AM Not Available Not Available Not Available buspirone 15 mg tablet TAKE 1 TABLET BY MOUTH TWICE A DAY 06/06 completed Prescrib ed Elsewher e: No Locat ion: [facility] odify By: salome Li ter DateTime : 08/12/20 17 08:31:39 AM Not Available Not Available Not Available enoxapari n 100 mg/mL subcutane ous syringe INJECT 1 ML EVERY 12 HOURS BY SUBCUTAN EOUS ROUTE DIRECTED . 07/20 completed Not Available Not Available Not Available Crestor 20 mg tablet take 1 tablet (20MG) by oral route every day 03/05 completed Prescrib ed Elsewher e: Yes Loca tion: [facility] odify By: gloria watts DateTime : 02/26/20 14 11:00:00 AM Not Available Not Available Not Available duloxetin e 30 mg capsule,d elayed release TAKE 1 CAPSULE BY MOUTH EVERY DAY 03/25 completed Not Available Not Available Not Available duloxetin e 60 mg capsule,d elayed release TAKE 1 CAPSULE BY MOUTH EVERY DAY active Not Available Not Available No t Available zolpidem ER 12.5 mg tablet,ex tended release,m ultiphase TAKE 1 TABLET BY MOUTH EVERYDAY AT BEDTIME active Not Available Not Available No t Available cholecalc iferol (vitamin D3) active Not Available Not Available Not Available azathiopr ine 03/05 completed Not Available Not Available Not Available Benlysta 400 mg intraveno us solution infuse by intraven ous route every 4 weeks over 06/06 completed Prescrib ed Elsewher e: Yes Loca tion: [facility] odify By: salome z Guillermo diaz DateTime : 05/26/20 18 08:30:00 AM Not Available Not Available Not Available Eliquis 5 mg tablet TAKE 1 TABLET BY MOUTH TWICE A DAY active Not Available Not Available No t Available Eliquis DVT-PE Treatment 30-Day Starter 5 mg (74 tablets) in dose pack 07/20 completed Not Available Not Available Not Available Paxlovid 300 mg (150 mg x 2)-100 mg tablets in a dose pack PLEASE SEE ATTACHED FOR DETAILED DIRECTIO NS 03/05 completed Not Available Not Available Not Available Vitals Date Recorded Body height Body mass index (BMI) Body weight Systolic And Diastolic Provider Name and Address Organization Details Last Updated DateTime 07/20/2025 167.64 cm 34.1 kg/m2 96439.99 g 111/75 mm[Hg] Keily Lewis [place] - [facility] 07/20/2025 09:30:32 Social History Question Answer Notes LastModified by Organizat ion Details LastModified Time Tobacco Smoking Status Never Smoker Honey [facility] 03/05/2023 09:36:19 Do You Have An Advance Directive? Yes Information n ot available 02/22/2022 How Many Years Have You Consumed Alcohol? 45 Information not available 03/05/2023 Are You Blind Or Do You Have Difficulty Seeing? No Information n ot available 02/22/2022 What Is Your Level Of Caffeine Consumption? Moderate Information not available 03/05/2023 How Much Tobacco Do You Chew? None [email or web address] Information not available 07/20/2025 In The 14 Days Before Symptom Onset, Have You Had Close Contact With A Laboratory-confirm ed COVID-19 While That Case Was Ill? No Information n ot available 02/22/2022 In The 14 Days Before Symptom Onset, Have You Had Close Contact With A Person Who Is Under Investigation For COVID-19 While That Person Was Ill? No Information not available 02/22/2022 Have You Been To An Area Known To Be High Risk For COVID-19? No Information not available 02/22/2022 Are You Deaf Or Do You Have Serious Difficulty Hearing? No Information not available 02/22/2022 What Type Of Diet Are You Following? REGULAR Information n ot available 02/22/2022 What Is The Highest Grade Or Level Of School You Have Completed Or The Highest Degree You Have Received? [id number] Information not available 02/22/2022 Are There Any Guns Present In Your Home? Yes Information not available 02/22/2022 Do You Use Protection During Sex? No Information not available 02/22/2022 Do You Use Your Seat Belt Or Car Seat Routinely? Yes Information not available 02/22/2022 Do You Have Smoke And Carbon Monoxide Detectors In Your Home? Yes Information not available 02/22/2022 How Much Tobacco Do You Smoke? No Information not available 02/22/2022 Do You Use Sunscreen Routinely? Yes Information not available 02/22/2022 Have You Used IV Drugs? No Information not available 02/22/2022 Do You Have Difficulty Walking Or Climbing Stairs? No Information not available 03/05/2023 Sex: Unknown Functional Status Question Answer Note LastModified by Organizat ion Details LastModified Time Do you use any illicit or recreational drugs? Yes [email or web address] Information not available 07/20/2025 What is your level of alcohol consumption? Occasional Information not available 02/22/2022 Are you able to walk independently without assistance or assistive devices? YESWOREST Information not available 02/22/2022 Are you able to care for yourself independently? Yes Information not available 03/05/2023 What is your occupation? retired [email or web address] Information not available 07/20/2025 Do you have difficulty dressing, bathing, grooming, or toileting? No Information not available 03/05/2023 What is your exercise level? Occasional Information not available 02/22/2022 Mental Status Question Answer Note LastModified by Organization D etails LastModified Time Do you feel stressed (tense, restless, nervous, or anxious, or unable to sleep at night)? [id number] Information not available 02/22/2022 Family History Relationship Description Onset Age of this Age Resolved Age Notes LastModified by Organization Details LastModified Time Father Diabetes mellitus [email or web address] Not available 2020 12:49:47 Father Hypertensive disorder [email or web address] Not available 2020 12:49:57 Father Congenital heart disease [email or web address] Not available 2024 09:17:51 Mother Hypertensive disorder [email or web address] Not available 2020 12:50:30 Sister Hypertensive disorder [email or web address] Not available 2020 12:50:34 Sister Malignant neoplasm of pancreas [email or web address] Not available 2024 09:17:51 Medical History Condition Response Allergies (Food, seasonal, environmental ) N Other Y Breast Cancer N Drug/Latex Allergies/Reactions N Blood Transfusion N Dermatologic Disorders N Lung Disease N Defects or Inherited Disease N Breast Problem N Gestational Diabetes N Hematologic disorders N Anesthesia Complications N History of STI N Deep Vein Thrombosis Y Polycystic ovary syndrome N Anxiety Disorder Y Autoimmune disease Y Arthritis N Infertility N Polyps N Acid Reflux (GERD) N History of abnormal pap N Cancer N Stroke N Varicosities N Neurologic/Epilepsy N Endometriosis N High Cholesterol Y Headaches N Fibromyalgia N Kidney Disease N Heart Problems N Kidney or Bladder Problems N Thyroid Problems N GI Problems N Eating Disorder N Anemia N Art (IVF or FET) N Psychiatric Illness N Ovarian Cancer N Diabetes N Pulmonary (TB, Asthma) N Hepatitis/Liver Disease N No Past Medical History N Eczema N Urinary Tract Infection N Abuse/Domestic Violence N Asthma N Trauma/Violence N Depression/ depression N Heart Disease N Pre-Eclampsia N Hypertension Y Osteoporosis N Thrombophilias N Gynecological History Statement/Question Response Abnormal Pap Y Date of Last Mammogram 11/11/2022 Date of LMP 04/16/2017 N On BCP's at Conception? N STIs/STDs N Was last menstrual period normal N HPV Vaccine N Colposcopy Duration of Flow (days) 5 Current Control Method Menopause If Post Menopausal, Age at Menopause 59 Are cycles usually normal N Date of Last Colonoscopy Frequency of Cycle (Q days) 28 Sexually Active? N Menses Monthly N Date of DEXA bone scan Age of first menstrual cycle 16 Date of Last Pap Smear 03/25/2024 Sexual Problems? N LMP Approximate N Obstetrics History GPAL:G 0 P 0 0 0 0 Past Encounters Encounter ID Performer Location Encounter Start Date Encounter Closed Date Diagnosis/Indication Diagnosis SNOMED-CT Code Diagnosis ICD10 Code Diagnosis IMO Codes Diagnosis Note [id number] JACKIE Alvarado [place] [address] [address] 07/20/2025 09:16:54 07/20/2025 11:51:59 Gynecologic examination 83094951 Z01.637 [id number] WWEpostmen opausalPap - UTDSTI screen - declinedMa mmogram - order givenColon cancer screening - UTDDexa - due 2025Routin e labs - UTD/PCPRTC in 1 yr or sooner if needed Do monthly self breast exams.It is advised to get annual flu shot in the fall and she could obtain at local pharmacy. If you haven't received the Tdap vaccine in the last 10 years you should obtain one as well.Have mammogram yearly, bone density every 2-3 years and stay up to date on colon cancer screening. Engage in regular exercise. Avoid tobacco and illicit drugs. This lifestyle behavior pattern will lead to less health conditions and longer life span. If BMI greater than 25 dietary consult advised.Qu estions have been answered. 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 For vaginal bleeding, patient reportshistory of menopause having occurredandno history of post menopausal bleeding. For urinary symptoms, patient reportsno hematuria,no incontinence,no nocturia, andno urinary frequency. For vulva, patient reportsno genital lesionandno vulvar atrophy. For vagina, patient reportsnormal vaginal dischargeandno vaginal atrophy.Breast symptomsFor breast, patient reportsno breast lump,no nipple discharge, andno breast pain.Psychological symptomsFor sexual complaints, patient reportsno sexual complaints. For psychological symptoms, patient reportsno depressionandno anxiety.Preventative measuresFor preventive measures, patient reportsencourage regular mammograms starting age 40,encourage self breast examination,encourage regular exercise, andencourage no tobacco use.64yo [id number] pap 03/2024 : nilm, HPV (-)mammogram last olonoscopy UTDdexa 2022 JACKIE Alvarado [address], [place], [address], [place] [facility] 07/20/2025 11:13:13 OBGyn Episode No OBEpisode recorded.
--- OUTSIDE RECORDS SUMMARY | 2025-09-24 17:50 | XMS_ITS | Data Portability ---
Author Organization [facility] Address [address] [place] [address] [place] [address] Assessment Encounter Date Assessment Date Assessment LastModified by Organization Details LastModified Time 02/22/2022 02/22/2022 Annual gynecological exam performed. Patient will come back in a year unless there are new symptoms. Not available 02/21/2022 17:13:37 03/05/2023 03/05/2023 Annual gynecological exam performed. Patient will come back in a year unless there are new symptoms. [email or web address] Not available 03/05/2023 09:35:46 03/25/2024 03/25/2024 Annual gynecological exam performed. Patient will come back in a year unless there are new symptoms. [email or web address] Not available 03/25/2024 09:22:58 07/20/2025 07/20/2025 Annual gynecological exam performed. Patient will come back in a year unless there are new symptoms. [email or web address] Not available 07/20/2025 09:29:49 Plan of Treatment Reminders Order Date Submit Date Provider Last Modified By Organization Details Last Modified Time Details Appointments None recorded. Lab None recorded. Referral None recorded. Procedures None recorded. Surgeries None recorded. Imaging MAMMO, screening, digital, bilateral 2024 025 [facility], [address], [place], [address], 17:20:48 MAMMO, screening, digital, bilateral 2023 024 [facility], [address], [place], [address], 4 05:01:27 MAMMO, screening, digital, bilateral 2022 023 [facility], [address], [place], [address], 3 17:21:12 DEXA, axial skeleton + vertebral fracture assessment 2022 023 [facility], [address], [place], [address], 3 13:10:02 Medication Orders None recorded. Patient TargetsNo targets recorded. Patient InstructionsNo instructions recorded. Reason for Referral None Reported. Results Created Date Observation Date Name Description Value Unit Range Abnormal Flag Note LastModifiedBy Organization Detail LastModifiedTime 02/23/2002/22/2022 IMAGE GUIDE D PAP AND HPV REGAR DLESS image guided Pap, HPV regardless of Pap result SEE RESULT S BELOW CASE REPOR T: Cytol ogy Gynec ologi lulu Repor t Case: [id number] Autho nabeel guerra Provi michelle: Don Chávez MD Colle cted: 02/22 1105 Order ing Locat ion: [place] Patho log[facility] Recei sudarshan: 02/23 0215 First Scree n: Bruce Vilchis, CT Rescr een: Jackie Lopez, CT Speci men: Scree miguel Pap - Image d, Cervi x STATE MENT OF ADEQU ACY: Satis facto ry for evalu ation Trans forma tion zone compo nent prese nt FINAL DIAGN OSIS: Negat anna for Intra epith elial Osito ojeda or Laura santillan (NIL) . Elect yeni robles ean d by Jackie Lopez, CT on 2021 at 1:57 PM ----- ----- ----- ----- ----- ----- ----- ----- ----- ----- ----- ----- ----- ----- ----- ----- ----- ---- HPV RESUL TS: HPV mRNA E6/E7 : No HPV mRNA Detec anna NOTE: This high risk HPV mRNA assay detec ts fourt een high- risk HPV types (16, 18, 31, 33, 35, 39, 45, 51, 52, 56, 58, 59, 66, 68) witho ut diffe renti ation . COMME NT: Note: This speci men was revie wed by a Cytot echno logis t and/o r Patho logis t (as indic ated in this repor t) after evalu ation using the Thinp rep Imagi ng Syste m. CLINI LULU INFOR MATIO N: Menst rual Statu s: LMP (if appli cable ): Clini lulu Histo ry/Pr eviou s Pap: Type of Neopl rajani (if appli cable ): Signi fican t Clini lulu Findi ngs: Other Histo ry: Hormo adan (if appli cable ): PAP EDUCA NOHELIA L NOTE: The Pap Test is a scree miguel test with an inher ent false negat anna rate. Liqui d-bas ed sampl ing may decre ase, but will not elimi mina, false negat anna resul ts. A negat anna resul t does not precl ude the prese nce and/o r devel opmen t of disea se, since the prese nce of abnor mal cells in the sampl e depen ds on the locat ion of the lesio n and sampl ing techn ique. Jany nued regul ar scree miguel is the best metho d of cance r preve ntion . If repor anna cytol ogic findi ng do not corre late with physi lulu and/o r histo rical findi ngs, furth er inves tigat ion is recom talya d, as clini katerin renteria nted. Not Available [facility] (Lab) [address], [place], [address], 03/02/2022 15:00:51 04/2503/05/2023 IMAGE GUIDE D PAP AND HPV REGAR DLESS image guided Pap, HPV regardless of Pap result SEE RESULT S BELOW CASE REPOR T: Cytol ogy Gynec ologi lulu Repor t Case: [id number] Autho nabeel guerra Provi michelle: Celeste Sanchez NP Colle cted: 03/05 1805 Order ing Locat ion: [place] Patho logy Recei sudarshan: 03/06 0141 First Scree n: Brandi aponte, Ignacio am, CT Rescr een: Lusia Winchester ret, CT Speci men: Scree miguel Pap - Image d, Cervi x STATE MENT OF ADEQU ACY: Satis facto ry for evalu ation Trans forma tion zone compo nent absen t The absen ce of an endoc ervic al compo nent was confi rmed by an addit ional christofer ner. FINAL DIAGN OSIS: Negat anna for Intra epith elial Osito ojeda or Laura santillan (NIL) . Elect yeni robles ean d by Luisa Winchester ret, CT on 2022 at 5:52 PM ----- ----- ----- ----- ----- ----- ----- ----- ----- ----- ----- ----- ----- ----- ----- ----- ----- ---- HPV RESUL TS: HPV mRNA E6/E7 : No HPV mRNA Detec anna NOTE: This high risk HPV mRNA assay detec ts fourt een high- risk HPV types (16, 18, 31, 33, 35, 39, 45, 51, 52, 56, 58, 59, 66, 68) witho ut diffe renti ation . COMME NT: This speci men was revie wed by a Cytot echno logis t and/o r Patho logis t (as indic ated in this repor t) after evalu ation using the Thinp rep Imagi ng Syste m. CLINI LULU INFOR MATIO N: Menst rual Statu s: LMP (if appli cable ): Clini lulu Histo ry/Pr eviou s Pap: Type of Neopl rajani (if appli cable ): Signi fican t Clini lulu Findi ngs: Other Histo ry: Hormo adan (if appli cable ): PAP EDUCA NOHELIA L NOTE: The Pap Test is a scree miguel test with an inher ent false negat anna rate. Liqui d-bas ed sampl ing may decre ase, but will not elimi mina, false negat anna resul ts. A negat anna resul t does not precl ude the prese nce and/o r devel opmen t of disea se, since the prese nce of abnor mal cells in the sampl e depen ds on the locat ion of the lesio n and sampl ing techn ique. Jany nued regul ar scree miguel is the best metho d of cance r preve ntion . If repor anna cytol ogic findi ng do not corre late with physi lulu and/o r histo rical findi ngs, furth er inves tigat ion is recom talya d, as clini katerin renteria nted. Not Available [facility] ([facility]) [address] [facility], [place], [address], 03/08/2023 18:54:59 03/25/20 24 03/25/2024 IMAGE GUIDE D PAP AND HPV REGAR DLESS image guided Pap, HPV regardless of Pap result SEE RESULT S BELOW CASE REPOR T: Cytol ogy Gynec ologi lulu Repor t Case: [id number] Autho nabeel g Provi michelle: Celeste Sanchez, SURGICAL INSTRUMENTS INSPECTOR Colle cted: 03/25 1111 Order ing Locat ion: [place] Patho logy Recei sudarshan: 03/26 0236 First Scree n: Paul Cole , CT Rescr een: Strut z, Ignacio lui, CT Speci men: Diagn ostic Pap - Image d, Cervi x STATE MENT OF ADEQU ACY: Satis facto ry for evalu ation Trans forma tion zone compo nent absen t The absen ce of an endoc ervic al compo nent was confi rmed by an addit ional scree ner. ----- ----- ----- ----- ----- ----- ----- ----- ----- ----- ----- ----- ----- ----- ----- ----- ----- ---- FINAL DIAGN OSIS: Negat anna for Intra epith elilay ojeda or Laura santillan (NIL) . Elect yeni mckoy d by Ignacio Whittington am, CT on 2023 at 6:21 AM ----- ----- ----- ----- ----- ----- ----- ----- ----- ----- ----- ----- ----- ----- ----- ----- ----- ---- HPV RESUL TS: HPV mRNA E6/E7 : No HPV mRNA Detec anna NOTE: This high risk HPV mRNA assay detec ts fourt een high- risk HPV types (16, 18, 31, 33, 35, 39, 45, 51, 52, 56, 58, 59, 66, 68) witho ut diffe renti ation . COMME NT: This speci men was revie wed by a Cytot echno logis t and/o r Patho logis t (as indic ated in this repor t) after evalu ation using the Thinp rep Imagi ng Syste m. CLINI LULU INFOR MATIO N: Menst rual Statu s: LMP (if appli cable ): Clini lulu Histo ry/Pr eviou s Pap: Type of Neopl rajani (if appli cable ): Signi dustin t Clini lulu Findi ngs: Other Histo ry: Hormo adan (if appli cable ): PAP EDUCA NOHELIA L NOTE: The Pap Test is a scree miguel test with an inher ent false negat anna rate. Liqui d-bas ed sampl ing may decre ase, but will not elimi mina, false negat anna resul ts. A negat anna resul t does not precl ude the prese nce and/o r devel opmen t of disea se, since the prese nce of abnor mal cells in the sampl e depen ds on the locat ion of the lesio n and sampl ing techn ique. Jany nued regul ar scree miguel is the best metho d of cance r preve ntion . If repor anna cytol ogic findi ng do not corre late with physi lulu and/o r histo rical findi ngs, furth er inves tigat ion is recom talya d, as clini katerin warrarleen nted. Not Available [facility] ([facility]) [address], [place], [address], 03/31/2024 07:26:03 05/28/20 23 05/28/2023 MAMMO , scree miguel, digit al, bilat eral No observ ation record ed. [facility] [address], [place], [address], 06/04/2023 10:09:58 06/04/20 DEXA, axial skele ton + verte bral fract ure asses sment No observ ation record ed. [facility] [address], [place], [address], 06/06/2023 11:59:35 08/05/20 25 08/05/2025 MAMMO , scree miguel, digit al, bilat eral No observ ation record ed. [email or web address] [facility] [address] [facility] [address], [place], [address], 08/20/2025 11:14:58 Result Notes None recorded. Problems Name Problem SNOMED Code Status Onset Date Resolution Date Notes Provider Name and Address Organization Details Recorded Time Adult health examinat ion Completed 201301/02/2021 Routine Medical Exam;Rec orded Elsewher e: No Locat ion: [facility] S ource: EHR Aerial Photographer irvin: N Nguyenti ce ID: 0001 [place] lable Time: 11:00:00 AM Laura fair, [facility] 1 11:49:00 Screenin g for malignan t neoplasm of cervix Completed 201301/02/2021 Screenin g for malignan t neoplasm s of the cervix;R ecorded Elsewher e: No Locat ion: [facility] S ource: EHR Aerial Photographer irvin: N Nguyenti ce ID: 0001 [place] lable Time: 11:00:00 AM Laura fair, [facility] 11:50:03 Menstrua tion finding Completed 201401/02/2021 Menorrha joel;Pavan rded Elsewher e: No Locat ion: [facility] S ource: EHR [facility] irvin: N Nguyenti ce ID: 0001 [place] lable Time: 08:30:00 AM Laura Melchor [facility], [facility] 1 11:49:11 Speciali zed medical examinat ion Completed 201401/02/2021 Gynecolo gical Examinat ion;Pavan rded Elsewher e: No Locat ion: [facility] S ource: EHR Aerial Photographer irvin: N Nguyenti ce ID: 0001 [place] lable Time: 08:30:00 AM Laura fair [facility] 11:50:10 Dysfunct ional uterine bleeding Completed 201401/02/2021 DUB;Pavan rded Elsewher e: No Locat ion: [facility] S ource: EHR Aerial Photographer irvin: N Nguyenti ce ID: 0001 [place] lable Time: 08:30:00 AM Laura fair, [facility] 11:49:[address] Concept Completed 201501/02/2021 Encntr for general adult medical exam w/o abnormal findings ;Recorde d Elsewher e: No Locat ion: [facility] S ource: EHR Aerial Photographer irvin: N Nguyenti ce ID: 0001 [place] lable Time: 08:15:00 AM Laura fair, [facility] 11:50:[address] Concept Completed 201501/02/2021 Anxiety; Recorded Elsewher e: No Locat ion: [facility] N Nguyenti ce ID: 0001 [place] lable Time: 08:15:00 AM Laura Melchor [facility], [facility] 11:50:06 Pain in female genitali a Completed 201501/02/2021 Dysmenor varun;Rec orded Elsewher e: No [facility]: N Nguyenti ce ID: 0001 [place] lable Time: 08:45:00 AM Laura Melchor [facility], [facility] 11:49:03 Abnormal uterine bleeding [id number] 100 Completed 201501/02/2021 Other specifie d abnormal uterine and vaginal bleeding ;Recorde d Elsewher e: No [facility] irvin: N Nguyenti ce ID: 0001 [place] lable Time: 11:15:00 AM Laura Melchor [facility] 11:48:58 Pregnanc y test negative [id number] Completed 201501/02/2021 Encounte r for pregnanc y test, result negative ;Recorde d Elsewher e: No Locat ion: [facility]: N Nguyenti ce ID: 0001 [place] lable Time: 11:15:00 AM Laura Melchor [facility] 11:50:02 Finding of menstrua l bleeding Completed 201501/02/2021 Excessiv e and frequent menstrua tion with regular cycle;Re corded Elsewher e: No [facility] E[facility] Aerial Photographer irvin: N Nguyenti ce ID: 0001 [place] lable Time: 10:30:00 AM Laura fair [facility] 1 11:49:04 Finding of pattern of menstrua l cycle Completed 201501/02/2021 Excessiv e and frequent menstrua tion with irregula r cycle;Re corded Elsewher e: No Locat ion: [facility] S ource: EHR Aerial Photographer irvin: N Nguyenti ce ID: 0001 [place] lable Time: 08:30:00 AM Laura fair, [facility] 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 1 11:50:09 Screenin g for malignan t neoplasm of rectum Completed 201701/02/2021 Encounte r for screenin g for malignan t neoplasm of rectum;R ecorded Elsewher e: No Locat ion: [facility] S ource: EHR Aerial Photographer irvin: N Nguyenti ce ID: 0001 [place] lable Time: 08:30:00 AM Laura fair [facility] 1 11:50:05 Menopaus e present [id number] Completed 201701/02/2021 Symptoms such as flushing , sleeples sness, headache , lack of concentr ation, associat ed with natural (age-rel ated) menopaus e;Record ed Elsewher e: No Locat ion: [facility] S ource: EHR Aerial Photographer irvin: N Practi ce ID: 0001 [place] tushar Time: 08:30:00 AM [facility] 11:49:07 Postmeno pausal [facility] [id number] Active 2020 Lauraloren fair [facility] 12:41:36 Notes:Lupus Problem Notes None recorded. Procedures Surgical History Date Name Laterality Status Provider Name and Address Organization Details Recorded Time 03/25/20 24 Date of Last Pap Smear completed Keily Lewis [facility] 07/20/2025 09:33:50 11/11/19 23 Date of Last Mammogram completed [facility] 03/25/2024 09:28:00 11/11/19 21 Colonoscopy completed [facility] 03/25/2024 09:31:18 11/11/19 19 total replacement of right hip joint completed [facility] 01/02/2021 12:41:09 04/11/20 16 Hysteroscopy completed [facility] 01/02/2021 12:43:56 Orthopedic Surgery completed Honey Rangel [facility] 03/05/2023 09:36:23 Knee arthroscopy/surg kim completed [facility] 01/02/2021 12:44:19 Imaging Results None recorded. [...] Prescrib ed Elsewher e: Yes Loca tion: [facility] odify By: rea diaz DateTime : 03/01/20 08:30:00 AM Not Available Not Available Not Available azathiopr ine 50 mg tablet TAKE 2 TABLETS BY MOUTH TWICE A DAY active Not Available Not Available No t Available valacyclo vir 500 mg tablet take 1 tablet (500MG) by oral route every day 03/05 completed Prescrib ed Elsewher e: Yes Loca tion: [facility] odify By: rea diaz DateTime : [...] Prescrib ed Elsewher e: No Locat ion: [facility] odify By: gloria watts DateTime : [...] Prescrib ed Elsewher e: Yes Loca tion: [facility] odify By: rea diaz DateTime : 02/26/20 14 11:00:00 AM Not Available Not Available Not Available azathiopr ine (bulk) powder 06/06 completed Prescrib ed Elsewher e: Yes Loca tion: [facility] odify By: salome Li ter DateTime [...] Prescrib ed Elsewher e: Yes Loca tion: [facility] odify By: salome Li ter DateTime : 06/06/20 19 08:45:00 AM Not Available Not Available Not Available buspirone 15 mg tablet TAKE 1 TABLET BY MOUTH TWICE A DAY 06/06 completed Prescrib ed Elsewher e: No Locat ion: [facility] odify By: salome Li ter DateTime [...] Prescrib ed Elsewher e: Yes Loca tion: [facility] odify By: gloria watts DateTime : [...] Prescrib ed Elsewher e: Yes Loca tion: [facility] M odify By: [email or web address] z Encoun ter DateTime : 05/26/20 18 08:30:00 AM Not [...] and Address Organization Details Last Updated DateTime 01/03/2021 167.64 cm 33.1 kg/m2 24389.44 g 111/71 mm[Hg] Laura Melchor [facility] 01/03/2021 10:11:25 Date Recorded Body height Body mass index (BMI) Body weight Systolic And Diastolic Provider Name and Address Organization Details Last Updated DateTime 02/22/2022 167.64 cm 34.1 kg/m2 73542.43 g 118/82 mm[Hg] Salma Mercado [facility] 02/22/2022 10:54:36 Date Recorded Body weight Body mass index (BMI) Body height Systolic And Diastolic Provider Name and Address Organization Details Last Updated DateTime 03/05/2023 16418.14 g 35.2 kg/m2 167.64 cm 112/72 mm[Hg] Honey Rangel [facility] 03/05/2023 09:36:02 Date Recorded Body weight Body mass index (BMI) Body height Systolic And Diastolic Provider Name and Address Organization Details Last Updated DateTime 03/25/2024 805781.91 g 35.7 kg/m2 167.64 cm 107/73 mm[Hg] Jaja Hugo [facility] 03/25/2024 09:25:25 Date Recorded Body height Body mass index (BMI) Body weight Systolic And Diastolic Provider Name and Address Organization Details Last Updated DateTime 07/20/2025 167.64 cm 34.1 kg/m2 61175.99 g 111/75 mm[Hg] Keily Winnney [facility] 07/20/2025 09:30:32 Social History Question Answer Notes LastModified by Organizat ion Details LastModified Time Tobacco Smoking Status Never Smoker Honey Rangel [facility], [facility] 03/05/2023 09:36:19 Do You Have An Advance Directive? Yes Information n ot available 02/22/2022 How Many Years Have You Consumed Alcohol? 45 Information not available 03/05/2023 Are You Blind Or Do You Have Difficulty Seeing? No Information n ot available 02/22/2022 What Is Your Level Of Caffeine Consumption? Moderate Information not available 03/05/2023 How Much Tobacco Do You Chew? None [email or web address] Information not available 07/20/2025 In The 14 [...] Or The Highest Degree You Have Received? [id number] Information not available 02/22/2022 Are There Any [...] use any illicit or recreational drugs? Yes [email or web address] Information not available 07/20/2025 What is your level of alcohol consumption? Occasional Information not available 02/22/2022 Are you able to walk independently without assistance or assistive devices? YESWOREST Information not available 02/22/2022 Are you able to care for yourself independently? Yes Information not available 03/05/2023 What is your occupation? retired [email or web address] Information not available 07/20/2025 Do you have difficulty dressing, bathing, grooming, or toileting? No Information not available 03/05/2023 What is your exercise level? Occasional Information not available 02/22/2022 Mental Status Question Answer Note LastModified by Organization D etails LastModified Time Do you feel stressed (tense, restless, nervous, or anxious, or unable to sleep at night)? [id number] Information not available 02/22/2022 Family History Relationship Description Onset Age of this Age Resolved Age Notes LastModified by Organization Details LastModified Time Father Diabetes mellitus [email or web address] Not available 2020 12:49:47 Father Hypertensive disorder [email or web address] Not available 2020 12:49:57 Father Congenital heart disease [email or web address] Not available 2024 09:17:51 Mother Hypertensive disorder Not available 2020 12:50:30 Sister Hypertensive disorder [email or web address] Not available 2020 12:50:34 Sister Malignant neoplasm of pancreas [email or web address] Not available 2024 09:17:51 Medical History Condition [...] ICD10 Code Diagnosis IMO Codes Diagnosis Note [id number] Yaima Davis CNM [facility] [address] [address] 01/03/2021 09:58:28 01/03/2021 10:42:40 Menopause present [id number] N95.1 Gynecologi c examination [id number] Z01.419 Take Calcium with Vitamin D 12-1500mg daily. Do monthly self breast exams. It is advised to get annual flu shot in the fall and she could obtain at [facility] or [facility] clinic. If you haven't received the Tdap vaccine in the last 10 years you should obtain one as well. Have mammogram yearly, bone density every 2-3 years and colonoscop y every 5-10 years depending on findings and history. Engage in daily exercise of low impact aerobic exercise 45-60 minutes 4-5 times weekly. Avoid tobacco and illicit drugs as well as using moderation with alcohol intake less than 1-2 8 oz beverages daily. This lifestyle behavior pattern will lead to less health conditions and longer life span. If BMI greater than 25 weight watchers or dietary consult advised. Questions have been answered. Patient appears to understand instructio ns, but if you have any further questions call or respond to this email. Additional precaution viktor measures were taken to minimize potential exposure to the Covid-19 virus during this patient s visit, including available hand talent acquisition associate upon arrive, temperatur e check and being asked a series of screening questions. All staff wore face coverings during this encounter, as well as provided additional cleaning and sanitizing of all surfaces, including countertop s, pens, chairs, door handles, light switches, etc, prior to and following the patient s visit. [id number] JACKIE Alvarado [facility] [address] [address] 02/22/2022 10:43:01 02/22/2022 17:20:54 Gynecologic examination [id number] Z01.419 Take Calcium with Vitamin D 12-1500mg daily. Do monthly self breast exams. It is advised to get annual flu shot in the fall and she could obtain at [facility] or [facility] care clinic. If you haven't received the Tdap vaccine in the last 10 years you should obtain one as well. Have mammogram yearly, bone density every 2-3 years and colonoscop y every 5-10 years depending on findings and history. Engage in daily exercise of low impact aerobic exercise 45-60 minutes 4-5 times weekly. Avoid tobacco and illicit drugs as well as using moderation with alcohol intake less than 1-2 8 oz beverages daily. This lifestyle behavior pattern will lead to less health conditions and longer life span. If BMI greater than 25 weight watchers or dietary consult advised. Questions have been answered. Patient appears to understand instructio ns, but if you have any further questions call or respond to this email No gynecologi c issues todayMedic al hx: Lupus, arterial blood clotting disorder around 1 year ago (no longer on blood thinners). Hx of abnormal pap smear around 5 years ago per patient, no cervical procedures needed per patient.[place] st pap smear 2020 normalPap done todayMammo gram scheduled in 2 weeksUTD on colonoscop yEncourage d coconut oil/extra virgin olive oil/crisco twice daily and use as lubricatio n with intercours eRTC in one year for WWE or sooner if needed [id number] JACKIE Alvarado [place] [address] [address] 03/05/2023 09:29:24 03/05/2023 10:35:11 Gynecologic examination [id number] Z01.419 Take Calcium with Vitamin D 12-1500mg daily. Do monthly self breast exams. It is advised to get annual flu shot in the fall and she could obtain at [facility] or [facility] care clinic. If you haven't received the Tdap vaccine in the last 10 years you should obtain one as well. Have mammogram yearly, bone density every 2-3 years and colonoscop y every 5-10 years depending on findings and history. Engage in daily exercise of low impact aerobic exercise 45-60 minutes 4-5 times weekly. Avoid tobacco and illicit drugs as well as using moderation with alcohol intake less than 1-2 8 oz beverages daily. This lifestyle behavior pattern will lead to less health conditions and longer life span. If BMI greater than 25 weight watchers or dietary consult advised. Questions have been answered. Patient appears to understand instructio ns, but if you have any further questions call or respond to this email Jevon cantuusalabrusty ormal pap around 5 years ago per patientlas t pap 2021 - normalpap done todaySTI testing declinedma mmogram order givendexa order givencolon oscopy UTD through PCPUTD with PCP for routine labsRTC in 1 year or sooner if needed Screening for osteoporosis [id number] Z13.820 Screening for malignant neoplasm of breast [id number] Z12.39 [id number] JACKEI Alvarado [place] [address] [address] 03/25/2024 09:19:51 03/25/2024 10:25:31 Gynecologic examination [id number] Z01.419 Jevon opausalpap updateddec lined STI screenmamm ogram order given - due exa UTDcolonos copy UTDUTD with PCPRTC in 1 yr or sooner if needed Take Calcium with Vitamin D daily. Do monthly self breast exams. It is advised to get annual flu shot in the fall and she could obtain at [facility] or [facility] care clinic. If you haven't received the Tdap vaccine in the last 10 years you should obtain one as well. Have mammogram yearly, bone density every 2-3 years and stay up to date on colon CA screening. Engage in regular exercise. Avoid tobacco and illicit drugs This lifestyle behavior pattern will lead to less health conditions and longer life span. If BMI greater than 25 dietary consult advised. Questions have been answered. Patient appears to understand instructio ns, but if you have any further questions call or respond to this email Screening for malignant neoplasm of breast [id number] Z12.39 [id number] JACKIE Alvarado [place] [address] [address] 07/20/2025 09:16:54 07/20/2025 11:51:59 Gynecologic examination [id number] Z01.469 [id number] WWEpostmen opausalPap - UTDSTI screen - declinedMa [...] estions have been answered. Screening mammography [id number] Z12.31 [id number] Health Concerns Section Related Observation LastModified by Organization Detai ls LastModified Time None Recorded Concern Status LastModified by Organization Details LastModified Time None Recorded Advance Directives Directive Y: Payers Insurance Date Sequence Insurance Name Policy Number Policy Jernigan Covered Member ID Jernigan Member ID Guarantor Name 07/18/2025 1 [place] 113 Ehsan Moraes [id number] Janki Love Notes Date Note Type Note Provider Name and Address Organization Details Recorded Time 1 text/html Annual GYNReported by PatientGenitourinary symptomsFor urinary symptoms, patient reportsno hematuriaandno incontinence. For vulva, patient reportsno genital lesion. For vagina, patient reportsnormal vaginal discharge. For menstrual cycle, (menopausal).Breast symptomsFor breast, patient reportsno breast pain,no breast lump, andno nipple discharge.Endocrine symptomsFor sexual complaints, patient reportsno sexual complaints,no pain during intercourse, andnormal libido. For menopausal symptoms, patient reportsno menopausal symptomsandnormal vaginal lubrication.Psychological symptomsFor psychological symptoms, patient reportsno depression,no anxiety, andno pmdd. Yaima Davis [facility] 01/03/2021 10:40:12 2 text/html Annual Problem Manager Post-MenopausalReported by PatientGenitourinary symptomsFor menopausal symptoms, patient [...] starting age 40,encourage self breast examination,encourage regular exercise,encourage no tobacco use, andhistory of recent colonoscopy. JACKIE Alvarado [address], [place], [address], [facility] 02/22/2022 13:43:53 3 text/html Annual Problem Manager Post-MenopausalReported by PatientGenitourinary symptomsFor menopausal symptoms, patient [...] starting age 42,encourage self breast examination,encourage regular exercise,encourage no tobacco use,needs to schedule mammogram,needs to schedule colonoscopy, andneeds to schedule bone density. JACKIE Alvarado [address], [place], [address], [facility] 03/05/2023 10:00:26 05/15/202 4 text/html Annual Problem Manager Post-MenopausalReported by PatientGenitourinary symptomsFor menopausal symptoms, patient [...] starting age 42,encourage self breast examination,encourage regular exercise,encourage no tobacco use,mammogram performed within the past year, andhistory of recent colonoscopy.63yo [id number] abnormal pap around 5 yrs agolast pap 03/05/2023 : nilm, HPV (-)mammogram UTD exa 202olonoscopy 202outine labs UTD/PCP JACKIE Alvarado [address], [place], [address], [facility] 03/25/2024 10:23:52 5 text/html Annual Problem Manager Post-MenopausalReported by PatientGenitourinary symptomsFor menopausal symptoms, patient [...] examination,encourage regular exercise, andencourage no tobacco use.64yo [id number] pap 03/2024 : nilm, HPV (-)mammogram last olonoscopy UTDdexa 2022 JACKIE Alvarado [address], [place], [address], [facility] 07/20/2025 11:13:13 OBGyn Episode No OBEpisode recorded.
== END 2025-09-24 13:40 | disposition home or self-care (01) ==
LOC: ANHED 13:31
PROVIDERS: Emergency Provider Physician Assistant; PCP Physician Assistant
DX: S81.852A Open bite, left lower leg, initial encounter (principal); S61.052A Open bite of left thumb without damage to nail, initial encounter; W54.0XXA Bitten by dog, initial encounter; J45.909 Unspecified asthma, uncomplicated; I10 Essential (primary) hypertension; M32.9 Systemic lupus erythematosus, unspecified; Z23 Encounter for immunization
CPT/HCPCS: 90471; 90715; 99283; A9270